=== PATIENT | male | born 1945 | race Caucasian/White ===

== ENCOUNTER 2016-06-29 15:30 | Inpatient (IN) | payer MEDICARE, OTHER ==
[~2016-06-29] VITALS: Ht 177.8 cm; Wt 124.1 kg
--- NOTE | ~2016-06-29 | ECHO ---
Transthoracic Echocardiography Report (TTE) Demographics Patient Name PRIETO, Date of Study 06/29/2016 ESTELLA Patient Number [id number] Visit Number [id number] Date of 1945 Room Number G6204 Accession Number [id number] Gender Male Age 71 year(s) Referring Gary Amador Work Station Support Specialist Nargis Diehl RVT Physician Physician Interpreting Angélica Furniture Removalist Physician Jess AYERS Supervising Ordering Physician Gary Amador MD/MLP Nurse Stress Casino Games Dealer Conclusions Contractility Score Summary Normal Left Ventricular contractility was noted. Summary Technically difficult exam. Normal LV/RV size and systolic function. The estimated left ventricular ejection fraction is 60%. Mild concentric left ventricular hypertrophy. Diastolic function indeterminate due to patient's arrhythmia. Dilated IVC with poor inspiratory collapse consistent with elevated RA pressure. No significant valvular abnormalities. There is mild pulmonary hypertension. The pulmonary pressure (RVSP) is 47 mmHg. Trivial pericardial effusion. Procedure Type of Study TTE procedure:2D Echocardiogram. Procedure Date Date: 06/29/2016 Start: 06:02 PM Study Location: Inpatient Portable Technical Quality: Limited visualization due to patient immobility. Indications:Tachycardia. Appropriate Use Criteria: 9 Patient Status: STAT HR: 105 bpm BP: 92/57 mmHg M-Mode/2D Measurements LV Diastolic Dimension: 4 cm LV Systolic Dimension: 2.21 cm LV Septum Diastolic: 2.04 cm LV PW Diastolic: 1.59 cm AO Root Dimension: 2.3 cm Cardiac Output: 7.12 l/min AV Cusp Separation: 1.9 cm RV Diastolic Dimension: 2.66 cm LA Dimension: 3.26 cm LVOT: 2 cm RV Base: 2.97 cm LVOT VTI: 21.6 cm RV Mid: 3.29 cm LV Stroke volume: 67.82 ml RV Length: 6.82 cm TAPSE: 1.97 cm TDI-S': 14 cm/s Doppler Measurements AV Peak Velocity: 1.95 m/s MV Peak E-Wave: 0.83 m/s AV Peak Gradient: 15.21 mmHg MV Peak A-Wave: 0.94 m/s AV Mean Gradient: 7 mmHg MV E/A Ratio: 0.88 LVOT Peak Velocity: 1.21 m/s MV P1/2t: 75 msec TR Gradient:27.46 mmHg PV Peak Velocity: 0.94 m/s Estimated RAP:20 mmHg PV Peak Gradient: 3.53 mmHg Estimated RVSP: 47 mmHg Estimated PASP: 47.46 mmHg E' Lateral Velocity: 0.1 m/s A' Lateral Velocity: 0.12 m/s Findings Left Ventricle Mild concentric left ventricular hypertrophy. Diastolic function indeterminate due to patient's arrhythmia. Right Ventricle Normal right ventricle structure and function. Left Atrium Normal left atrial size. Right Atrium Dilated IVC with poor inspiratory collapse consistent with elevated RA pressure. Mitral Valve Mild mitral annular calcification. Aortic Valve The aortic valve was not well imaged. Tricuspid Valve Trivial tricuspid regurgitation by color Doppler. There is mild pulmonary hypertension. The pulmonary pressure (RVSP) is 47 mmHg. Pulmonic Valve Pulmonic valve is not well seen. Pericardial Effusion Trivial pericardial effusion. Miscellaneous Visualized portions of the aortic root and ascending aorta appear normal in size. Pleural Effusion No evidence of pleural effusion. Contractility Score LV regional wall motion:(0-Non visualized 1-Normal 2-Hypokinesis 3-Akinesis 4-Dyskinesis 5-Aneurysm) Signature dtt: JESS BAIG dtd: 06/29/16 2363 Physician Self Edit
--- NOTE | ~2016-06-29 | CON ---
PATIENT'S NAME: PRIETO [facility] [place] AGE: 71 Y [address] ROOM: [place] [address] LOCATION: GICU ADMIT DATE: 06/29/2016 Consultation DISCHARGE DATE: FAMILY PHYSICIAN: KHLOE BLOOM MD ATTENDING PHYSICIAN: Marjorie VEGA REFERRING PHYSICIAN: aGry Amador MD REASON FOR CONSULTATION: Elevated cardiac enzymes. HISTORY OF PRESENT ILLNESS: This is a 71-year-old gentleman, who was originally seen in the [facility] when family found him unresponsive. He was found to be in a circulatory shock, hypotensive, and had acute encephalopathy, and was unresponsive. In addition, he was found to have acute pancreatitis. Prior to the incident, he had been complaining of a cough about 5 days before and was treated for this as an outpatient. Per family, there has been no report of exertional chest pain. In fact, he is a very active 71-year-old. He does have problems with shortness of breath and dyspnea on exertion. He had never complained that he had palpitations. PAST MEDICAL HISTORY: 1. Diabetes mellitus type 2. 2. Essential hypertension. 3. Acute pancreatitis. 4. Dyspnea on exertion. PAST SURGICAL HISTORY: From old records, hernia repair. FAMILY HISTORY: Obtained from old records. Father had an [facility] and congestive heart failure. Mother had diabetes mellitus. SOCIAL HISTORY: He is a never smoker. He does not use alcohol. He does have attentive children. He is . REVIEW OF SYSTEMS: Unobtainable. PHYSICAL EXAMINATION: VITAL SIGNS: Currently, he is on 2 pressors for blood pressure support. Pressures have ranged in the 70s to 90s over 60s with a heart rate of 110 to 120. He is in a regular sinus rhythm. Initially, when he was admitted, there was concern about ST-elevation. It was reviewed by Cardiology, and it was PATIENT'S NAME: PRIETO [facility] [place] AGE: 71 Y [address] ROOM: [place] [address] LOCATION: GICU ADMIT DATE: 06/29/2016 Consultation DISCHARGE DATE: FAMILY PHYSICIAN: KHLOE BLOOM MD ATTENDING PHYSICIAN: Marjorie VEGA decided that he did not have ST elevation. He is sedated on a ventilator. SKIN: Warm, dry, and pink. HEENT: Pupils are equal. NECK: Soft and supple. There is no lymphadenopathy. CV: Regular with a normal S1 and S2. ABDOMEN: Soft. Bowel sounds are present. EXTREMITIES: Cool. LABORATORY DATA: His troponin I was 0.122 to 0.271; CPK 1402 to 2164; CK-MB was 23.7, now down TO 8.8; ProBNP 5510 to 5813. Amylase was 102, now 1203; lipase 13,359, down to 7325. Hemoglobin A1c is 10.4. He did have a positive UA. ASSESSMENT AND PLAN: 1. Elevated cardiac enzymes. His CK-MB is trending down at this time. He did have an echocardiogram showing an EF of 60%. We will discuss further recommendations with Dr. Collazo. 2. Acute pancreatitis, which is being treated by the hospitalist. 3. Diabetes mellitus. We will continue with current medications. Assessment and plan, history of present illness, and physical exam are per Dr. Miguel Collazo. We would like to thank Dr. Vega for allowing us to participate in the patient's care. LOVE ARNDT APRN FOR MIGUEL COLLAZO MD TGP/modl /[id number] CC: Khloe Bloom MD d: 07/01/16 2058 t: 08/03/16 1134, CONSULTATION REPORT
--- NOTE | ~2016-06-29 | ECHO ---
Transthoracic Echocardiography Report (TTE) Demographics Patient Name PRIETO, Date of Study 07/10/2016 ESTELLA Patient Number [id number] Visit Number [id number] Date of 1945 Room Number G6204 Accession Number [id number] Gender Male Age 71 year(s) Referring Lc Gilman Warehouse Team Member Bang Raphael RVT, Physician Lilliana Cabrera MD [facility] Physician Interpreting Cindy Rivera MD Train Caller Physician Supervising Ordering Physician Lc Gilman MD/MLP Nurse Stress Senior Account Clerk Conclusions Summary The estimated left ventricular ejection fraction is 50-55%. Right ventricle appears normal in size with normal function. RVSP estimated at 23 mmHg. Procedure Type of Study TTE procedure:Echo Limited w/o Contrast. Procedure Date Date: 07/10/2016 Start: 02:27 PM Study Location: Inpatient Portable Technical Quality: Fair due to body habitus. Indications:Pulmonary embolus. Appropriate Use Criteria: 8 Patient Status: Routine Rhythm: Sinus tachycardia HR: 110 bpm BP: 132/102 mmHg Allergies - No known allergies. Doppler Measurements TR Velocity:2.12 m/s TR Gradient:17.98 mmHg Estimated RAP:5 mmHg Estimated PASP: 22.98 mmHg Estimated RVSP: 23 mmHg Findings Left Ventricle Normal left ventricle size and function. Right Ventricle Mild to moderately dilated right ventricle. Pericardial Effusion No evidence of pericardial effusion. Signature dtt: Miguel White (cardio) dtd: 07/10/16 1427 Physician Self Edit
--- NOTE | ~2016-06-29 | CON ---
PATIENT'S NAME: ESTELLA [facility] AGE: 71 Y [address] ROOM: G[address] [place], [place] [address] LOCATION: GICU ADMIT DATE: 06/29/2016 Consultation DISCHARGE DATE: FAMILY PHYSICIAN: DEYSI BLOOM MD ATTENDING PHYSICIAN: Marjorie VEGA DATE OF CONSULTATION: 07/07/2016 CONSULTATION NOTE REASON FOR CONSULTATION: Hypernatremia. REFERRING PHYSICIAN: Dr. Marjorie Vega. HISTORY OF PRESENT ILLNESS: A 71-year-old male with history of hypertension and type 2 diabetes, who was initially transferred to our hospital from [place], [place] after development of acute respiratory failure, hypothermia with possible septic shock secondary to septic arthritis and DKA. He was recovering well and being managed in the ICU at [facility], got extubated a couple of days ago, however, still having significant respiratory distress and was on BiPAP. The critical care team was trying to diuresing persistently for the last few days to minimize oxygen requirement, currently on no nasal cannula. The patient got about 6 L of fluid out yesterday, however, serum sodium which was 140, a few days ago, now slowly went up to 153 to 154 range. Nephrology consultation had been called for hypernatremia evaluation. During my evaluation, although the patient responds to the name call but still appears to be slightly confused possibly secondary to underlying dementia, although we are not sure about the baseline mental status of the patient, before everything happened. He denied any chest pain, or shortness of breath at this point, and as mentioned above, he is currently saturating at 93% to 94% on nasal cannula. No significant dependent edema. However, bilaterally at bases the breath sounds are diminished. He denies any chest pain, any nausea, vomiting, or diarrhea, however, the patient has a Dobbhoff to his nose. After extubation his gag reflex is still not completely back, and there is a chance of aspiration while swallowing. PT and OT at the bedside, working with the patient. PAST MEDICAL HISTORY: 1. Hypertension. 2. Type 2 diabetes. PAST SURGICAL HISTORY: Hernia repair in 2006. MEDICATIONS: At home are: 1. Amoxicillin. 2. Aspirin. 3. Enalapril. 4. Glipizide. 5. Glyxambi. 6. Metformin. ALLERGIES: NO KNOWN DRUG ALLERGIES. FAMILY HISTORY: The patient although alert but could not give much history, probably demented. We cannot get more history about his family. PATIENT'S NAME: ESTELLA [facility] AGE: 71 Y [address] ROOM: [address] [place] [id number] LOCATION: [facility] ADMIT DATE: 06/29/2016 Consultation DISCHARGE DATE: FAMILY PHYSICIAN: DEYSI BLOOM MD ATTENDING PHYSICIAN: Marjorie VEGA SOCIAL HISTORY: Again unknown because of the patient's mental status. REVIEW OF SYSTEMS: GENERAL: No fever. No chills or rigor. HEENT: No sore throat. No sinus congestion. CVS: No chest pain. No exertional shortness of breath. No leg swelling. RESPIRATORY: No shortness of breath. No cough. No wheezing. GENITOURINARY: No pain with urination. No increased frequency. No nocturia. GASTROINTESTINAL: No abdominal pain. No abdominal distention. No nausea or vomiting. NEUROLOGIC: No weakness. No seizures. SKIN: No rash. No itching. ALLERGIES: No seasonal allergy. No hayfever. ENDOCRINE: No heat intolerance. No cold intolerance. PSYCHIATRIC: No sadness. No crying spells. No history of panic attack. PHYSICAL EXAMINATION: VITAL SIGNS: Blood pressure 100 to 130s over 40s to 60s. Pulse rate 80 to 100, respiratory rate 16, temperature 99.0, and saturating at 94% to 95% on 3 to 4 L of oxygen via nasal cannula. GENERAL: Not in apparent distress. HEAD: Moist mucous membranes. Bilateral PERRLA, EOMI. NECK: No JVD, thyromegaly or lymphadenopathy. CVS: S1 and S2 normal, regular rate and rhythm. No murmur, rub, gallop. CHEST: Decreased air entry at the bilateral bases. No wheezes or rales. ABDOMEN: Soft, nontender, nondistended. Bowel sounds present. EXTREMITIES: No cyanosis, clubbing, jaundice. 1+ dependent edema. MUSCULOSKELETAL: No limitation of range of motion. SKIN: No pallor, cyanosis, icterus. FISHER SPONGE HOOKING: Alert and oriented x3. No gross findings. LABORATORY STUDIES: Blood sugar between 170 to 240. CBC; WBC 22,000, hemoglobin 13.1, and platelets 353,000. Chemistry; serum sodium 153, potassium 4.0, chloride 117, bicarbonate 24, BUN 26, creatinine 1.4, glucose 216, calcium 8.7, phosphorus 2.1, and magnesium 2. Anion gap 16. UA; specific gravity of 1.015, pH 5, 2+ turbidity, positive protein, 3+ glucose, positive ketones, rare wbc's, full field rbc, and 1+ amorphous material. ASSESSMENT AND PLAN: 1. Hypernatremia, possibly hypertonic although serum osmolality is not available. No urine studies as well, but I do believe the possible etiology is free water loss from osmotic diuresis with diabetic ketoacidosis and increased blood sugar concentration as well as occasional tube feed, but the patient was off tube feed for the last 4 days, but we are also giving diuretic which may have contributed to some increased free water loss. We will shoot for 7 to 8 mEq of sodium correction for now with that the free water loss will be about 2.5 L along with some ongoing loss. PATIENT'S NAME: ESTELLA [facility] AGE: 71 Y [address] ROOM: [place] [address] LOCATION: [facility] ADMIT DATE: 06/29/2016 Consultation DISCHARGE DATE: FAMILY PHYSICIAN: DEYSI BLOOM MD ATTENDING PHYSICIAN: Marjorie VEGA It is very difficult to calculate ongoing loss without the urine lytes but with the average urine output of 6 L for this patient. At this current situation, we will take at least 3 L as free water loss in the urine so we will give about 250 mL of free water flush at the Dobbhoff through the NGT and we will give about 175 mL of D5 water per hour. The patient's insulin regimen should be changed to control the blood sugar more appropriately. Please send UA, urine lytes including sodium, potassium, and creatinine osmolality. Please check serum sodium q1-2 hours hourly and send serum osmolality right now. We will closely monitor for now. 2. Acute kidney injury versus chronic kidney disease. Baseline creatinine is unknown. Creatinine was 3 at the time of admission, possibly secondary to acute tubular necrosis, septic versus toxic. Creatinine improved to 1.0, but now went back to 1.4 and it is not coming back, possible acute tubular necrosis versus acute interstitial nephritis with Zosyn, we will switch the patient from Zosyn to meropenem if possible and cleared by primary team. 3. Acute respiratory failure possibly volume overloaded. The patient was getting aggressively diuresed over the last few days. Currently, on nasal cannula and respiratory status is much better. 4. Septic shock, improved possibly secondary to septic arthritis of the right shoulder. Primary team is managing, currently on Zosyn as mentioned above which might have caused some acute interstitial nephritis. We will request to switch to meropenem if possible. 5. Hypertension, was on multiple antihypertensive medications at home. Currently all medications on hold in the context of septic shock. Adjust medication as necessary. 6. Diabetes. Blood sugar is fragile control. We are giving D5 to supplement some of the free water loss. The patient's blood sugar needs to be controlled more strictly with insulin either through subcutaneous route or as an IV insulin regimen. We will defer that to the primary team. However, if the blood sugar remains uncontrolled, patient will get more aggressive cosmetic diuresis with uncontrolled blood sugar and hypernatremia will be difficult to control. Thank you for allowing me to participate in this patient's care. We will closely monitor the patient's progress along with you. MARYSOL TA MD /modl /[id number] d: 07/07/162030 t: 07/14/16 1423, CONSULTATION REPORT
--- NOTE | ~2016-06-29 | ECHO ---
Transthoracic Echocardiography Report (TTE) Demographics Patient Name PRIETO, Date of Study 07/01/2016 ESTELLA Patient Number [id number] Visit Number [id number] Date of 1945 Room Number G6204 Accession Number [id number] Gender Male Age 71 year(s) Referring Lc Gilman Camp Recreation Specialist Bridgette Monteiro Physician [facility] Physician Interpreting Cindy Rivera MD Power Tong Operator Physician Supervising Ordering Physician /MARIELENA Nurse Stress Clinical Analyst Conclusions Summary Technically difficult exam. The estimated left ventricular ejection fraction is 40-45%. Mild concentric left ventricular hypertrophy. Diastolic function indeterminate due to patient's arrhythmia. Moderate to severely reduced right ventricular function. Mild tricuspid regurgitation by color Doppler. No evidence of pericardial effusion. Procedure Type of Study TTE procedure:2D Echocardiogram. Procedure Date Date: 07/01/2016 Start: 09:40 AM Study Location: Inpatient Portable Indications:Elevated Troponin. Appropriate Use Criteria: 9 Patient Status: STAT HR: 135 bpm BP: 104/85 mmHg M-Mode/2D Measurements LV Diastolic Dimension: 4.87 cm LV Systolic Dimension: 3.8 cm LV Septum Diastolic: 1.09 cm LV PW Diastolic: 1.09 cm AO Root Dimension: 2.2 cm Cardiac Output: 4.13 l/min AV Cusp Separation: 1.3 cm RV Diastolic Dimension: 3.26 cm LVOT: 2 cm LVOT VTI: 9.75 cm LV Stroke volume: 30.62 ml Doppler Measurements AV Peak Velocity: 1.19 m/s MV Peak E-Wave: 0.4 m/s AV Peak Gradient: 5.66 mmHg AV Mean Gradient: 3 mmHg LVOT Peak Velocity: 0.87 m/s PV Peak Velocity: 0.69 m/s TR Velocity:2.32 m/s PV Peak Gradient: 1.93 mmHg TR Gradient:21.53 mmHg Estimated PASP: 31.53 mmHg Estimated RAP:10 mmHg A' Septal Velocity: 0.03 m/s Estimated RVSP: 32 mmHg A' Lateral Velocity: 0.1 m/s E' Septal Velocity: 0.03 m/s E' Lateral Velocity: 0.03 m/s Findings Left Ventricle Mild concentric left ventricular hypertrophy. Diastolic function indeterminate due to patient's arrhythmia. Anterior wall shows mild to moderate hypokinesis Right Ventricle Moderate to severely reduced right ventricular function. Left Atrium Normal left atrial size. Mitral Valve Mild mitral annular calcification. Aortic Valve Normal aortic valve structure and function. Tricuspid Valve Mild tricuspid regurgitation by color Doppler. Pulmonic Valve Normal pulmonic valve structure and function. Pericardial Effusion No evidence of pericardial effusion. Pleural Effusion No evidence of pleural effusion. Contractility Score LV regional wall motion:(0-Non visualized 1-Normal 2-Hypokinesis 3-Akinesis 4-Dyskinesis 5-Aneurysm) Signature dtt: Miguel White (cardio) dtd: 07/01/16 0940 Physician Self Edit
--- NOTE | ~2016-06-29 | OR ---
PATIENT'S NAME: PRIETO [facility] AGE: 71 Y [address] ROOM: [address] [address] LOCATION: GICU ADMIT DATE: 06/29/2016 OR/Procedure Report DISCHARGE DATE: FAMILY PHYSICIAN: PHYSICIAN, UNKNOWN ATTENDING PHYSICIAN: Marjorie TORREZ SURGEON: Federica Platt MD DATE OF PROCEDURE: 06/29/2016 PROCEDURE NAME: Left internal jugular central venous catheter with ultrasound guidance. INDICATION: Shock and profound metabolic acidosis with a pH of 6.83. CONSENT: Consent could not be readily obtained from the POA. I explained the procedure to the patient's [id number] who was present in the room. She gave verbal agreement to the procedure. Overall, the procedure had to be done because of emergent situation. PROCEDURE SUMMARY: A time-out was performed. The patient's left neck region was prepped and draped in sterile fashion using chlorhexidine scrub. Anesthesia was achieved with 1% lidocaine solution. The left internal jugular vein was accessed under ultrasound guidance using a finder needle. Ultrasound images were permanently documented. Venous blood was withdrawn and a guidewire was advanced through the needle and the needle was withdrawn. A small incision was made with a 10 blade scalpel. Two sequential dilators were advanced over the guidewire until appropriate dilation was obtained. The second dilator was removed and a 12-Chinese central venous triple-lumen catheter was advanced over the guidewire and secured into place with 2 sutures at 20 cm. The guidewire was removed. At the time of procedure completion, all ports aspirated and flushed properly. Postprocedure x-ray is pending at the time of this dictation. COMPLICATIONS: None. ESTIMATED BLOOD LOSS: Less than 10 mL. FEDERICA PLATT MD RFN/modl PATIENT'S NAME: PRIETO [facility] AGE: 71 Y [address] ROOM: [address] [address] LOCATION: GICU ADMIT DATE: 06/29/2016 OR/Procedure Report DISCHARGE DATE: FAMILY PHYSICIAN: , SETH ATTENDING PHYSICIAN: Marjorie TORREZ /[id number] d: 06/29/16 2310 t: 06/30/16 0900, OPERATIVE SUMMARY
--- NOTE | ~2016-06-29 | CON ---
PATIENT'S NAME: PRIETO [facility] AGE: 71 Y [address] ROOM: [place] [address] LOCATION: GPCU ADMIT DATE: 06/29/2016 Consultation DISCHARGE DATE: FAMILY PHYSICIAN: DEYSI BLOOM MD ATTENDING PHYSICIAN: Marjorie TORREZ DATE OF CONSULTATION: 07/26/2016 HISTORY OF PRESENT ILLNESS: The patient is a 71-year-old male, who was admitted approximately a month ago secondary to urosepsis. The patient spent several weeks in Intensive Care Unit. Staff reports he continues to have recurrent cystitis with Staph infections. The patient reports some voiding difficulties prior to his hospitalization, but denies a history of BPH. The patient has never taken medications for his condition. He denies prior history of bladder or kidney infections. In view of his recurrent infections and history of difficulty voiding, I recommend checking bladder scan post void residual for initial evaluation. PAST MEDICAL HISTORY: Significant for diabetes, hypertension, and also history of GI bleeding. MEDICATIONS: See detailed history and physical. SOCIAL HISTORY: No history of alcohol abuse. PHYSICAL EXAMINATION: GENERAL: An elderly male, with difficulty hearing. EYES: Extraocular motion intact. LUNGS: Clear bilaterally. CARDIAC: Regular rhythm and rate. ABDOMEN: Obese, soft, and nontender. Normoactive bowel sounds throughout. NEURO: Grossly intact. SKIN: Within normal limits. RECTAL: Slightly decreased tone. Prostate is smooth, approximately 30 grams in size. IMPRESSION: Recurrent cystitis. PLAN: We will check bladder scan post void residual for initial evaluation. PATIENT'S NAME: PRIETO [facility] AGE: 71 Y [address] ROOM: [place] [address] LOCATION: GPCU ADMIT DATE: 06/29/2016 Consultation DISCHARGE DATE: FAMILY PHYSICIAN: DEYSI BLOOM MD ATTENDING PHYSICIAN: Marjorie TORREZ MD SUZI MICHELLE/zuleika /[id number] d: 07/27/16 0112 t: 08/15/16 1443, CONSULTATION REPORT
--- NOTE | ~2016-06-29 | HP ---
PATIENT'S NAME: PRIETO [facility] AGE: 71 Y [address] ROOM: [place] [address] LOCATION: GICU ADMIT DATE: 06/29/2016 History & Physical DISCHARGE DATE: FAMILY PHYSICIAN: PHYSICIAN, UNKNOWN ATTENDING PHYSICIAN: Marjorie TORREZ DATE OF SERVICE: CHIEF COMPLAINT: Unresponsive. HISTORY OF PRESENT ILLNESS: The patient is a 71-year-old gentleman with past medical history of diabetes mellitus type 2, who presents here from [place], [place] with circulatory shock, acute respiratory failure, and acute encephalopathy. According to a family member, the patient was started on amoxicillin 5 days ago due to cough. Last seen normal was on Sunday. However, the patient called in today to his primary care doctor and did not sound well. Family members were called to take the patient. The patient was found at home unresponsive. The patient was brought in to [facility] and was found to have circulatory shock with hypotension, acute encephalopathy, and also acute hypoxic respiratory failure. The patient was intubated, was started on IV fluids, was given vancomycin and Zosyn for broad-spectrum antibiotic, and was brought here to our hospital for further evaluation. Initially, the patient was thought that he had ST elevation. V3 and V6 were thought to be elevated, however, was reviewed by our Cardiology and repeat EKG did not show any signs of ST elevation. The patient lives alone. Does not drink and does not smoke. En route, the patient was found to have coffee-ground emesis through his OG tube. Lab that was given to our hospital from [facility] was significant for a bicarb of 4, potassium of 6.8, blood glucose of 619, and white blood cell count of 36.3. The patient takes metformin for his diabetes and also linagliptin plus empagliflozin. MEDICAL HISTORY: Diabetes mellitus and hypertension. FAMILY HISTORY: Noncontributory. SOCIAL HISTORY: The patient lives by himself. Does not drink. Does not smoke. MEDICATION: PATIENT'S NAME: PRIETO ESTELLA [facility] AGE: 71 Y [address] ROOM: [place] [address] LOCATION: GICU ADMIT DATE: 06/29/2016 History & Physical DISCHARGE DATE: FAMILY PHYSICIAN: PHYSICIAN, UNKNOWN ATTENDING PHYSICIAN: Marjorie TORREZ Please see med reconciliation. REVIEW OF SYSTEMS: Unable to obtain review of system due to the patient's poor mentation. PHYSICAL EXAMINATION: VITAL SIGNS: Temperature 99 degree Fahrenheit, blood pressure 86/55, respiratory rate of 126, weight of 128 kg, saturating 95% on FiO2 of 60. GENERAL APPEARANCE: The patient is intubated. HEAD: Normocephalic, atraumatic. NECK: Left-sided central venous catheter present. EYES: Pupils equal, round, and reactive to light. Sclerae nonicterus. NOSE: No nasal discharge. THROAT: OG tube present draining mild coffee-ground emesis. CHEST: Clear to auscultation. Mechanical breath sound present. HEART: Tachycardic. No murmurs, rubs, or gallops. ABDOMEN: Mild epigastric tenderness. Bowel sounds present. SKIN: Warm to touch. EXTREMITIES: Lower extremity, no edema. MUSCULOSKELETAL: No obvious joint effusion noted. POURER CRANE LADLE: The patient is alert and oriented x0, intubated, sedated. CURRENT LABORATORIES: The patient's initial ABG was pH of 6.83, pCO2 of 57 and a bicarb of 9.3. Last VBG done shows pH of 7.29, pCO2 of 38, and bicarb of 18.3. Troponin 0.122. CBC: White blood cell count of 23.1, hemoglobin of 14.9, and a platelet of 421. Renal function panel shows BUN of 70, creatinine of 2.9, sodium of 138. Hemoglobin A1c of 10.4. INR of 1.13. Lipase of 13,359. Procalcitonin level of 1.43. IMAGING DATA: EKG shows sinus tachycardia, no ST elevation noted. CT abdomen, prelim report shows pancreatitis. CT chest shows left IJ catheter and brachiocephalic vein. No evidence of complication. Dependent bilateral lung consolidation and volume loss and possible pancreatitis. ASSESSMENT AND PLAN: 1. The patient is a 71-year-old gentleman with past medical history of diabetes mellitus, who presents here with circulatory shock, acute metabolic encephalopathy, pancreatitis, metabolic and respiratory acidosis and diabetic ketoacidosis. Etiology most likely secondary to diabetic ketoacidosis caused by possible pancreatitis and also use of SGLT2 diabetic medication. In this case, which he uses empagliflozin plus linagliptin with the generic name is Glyxambi, known to cause diabetic ketoacidosis in type 2 diabetic patients. PATIENT'S NAME: ESTELLA MOREAU [facility] AGE: 71 Y [address] ROOM: [id number] [place], [place] [address] LOCATION: [facility] ADMIT DATE: 06/29/2016 History & Physical DISCHARGE DATE: FAMILY PHYSICIAN: PHYSICIAN, UNKNOWN ATTENDING PHYSICIAN: Marjorie TORREZ 2. Acute respiratory failure, etiology most likely secondary to diabetic ketoacidosis. The patient is sedated and intubated. Serial ABG and VBG showing improvement. We will treat underlying etiology. 3. Acute metabolic encephalopathy. Etiology secondary to severe acidosis. Currently not known for how long the patient was unresponsive. Initial CT at [facility] was unremarkable. The patient compared to when he was admitted, he is showing some sort of improvement. He is opening eyes and tracking. However, the patient still is noted to have right preference gaze. We will acquire CT head in the morning to further evaluate possible stroke. We will treat underlying etiology. Hopefully, the patient will improve his encephalopathy when his underlying etiology is fixed. 4. Circulatory shock. Etiology septic shock versus hypovolemia due to diabetic ketoacidosis and pancreatitis. The patient was noted to have elevated prolactin level and white blood cells. CT abdomen and CT chest unrevealing for infectious process. However, we will acquire blood culture. Blood culture is pending. On broad-spectrum antibiotics, on Zyvox and cefepime. We will follow up blood culture closely. Also, we will treat the underlying severe metabolic acidosis, that can also present factor in this case. We will also give the patient IV fluid. We will follow the patient clinically. 5. Diabetic acidosis. Etiology most likely secondary to SGLT2 medication use and pancreatitis or possible sepsis. We will continue with the DKA protocol. He is currently on insulin drip and D5 half normal saline. We will have serial renal function panel. To supplement phosphorus and potassium as needed. 6. Severe metabolic acidosis and severe respiratory acidosis. Etiology most likely secondary to diabetic ketoacidosis and worsening of mental status. The patient is currently intubated and is being treated with diabetic ketoacidosis protocol for his metabolic acidosis. Serial VBGs are showing improvement. We will treat current treatment plan. 7. Possible gastrointestinal bleed. The patient's OG tube shows some coffee- grounds emesis. However, hemoglobin has been stable during stay, currently on Protonix drip and octreotide. To consult GI in the morning. We will have serial H and Hs. 8. Severe pancreatitis. The patient is currently on IV fluids. We will continue treating the patient with aggressive IV fluid treatment. GI consult in the morning. 9. Acute kidney injury secondary to circulatory shock and possible sepsis. Currently on IV fluids. We will have serial renal function panel. 10. Elevated troponin. Etiology most likely non-ST elevation myocardial infarction type 2. Initial EKG does not show any concerning finding of ST elevation or depression. This is most likely secondary to demand. We will follow the patient closely. I have personally reviewed the patient's medical record including but not PATIENT'S NAME: ESTELLA MOREAU [facility] AGE: 71 Y [address] ROOM: [place] [address] LOCATION: [facility] ADMIT DATE: 06/29/2016 History & Physical DISCHARGE DATE: FAMILY PHYSICIAN: PHYSICIAN, UNKNOWN ATTENDING PHYSICIAN: Marjorie TORREZ limited to blood work and radiology report. Total time spent with the patient is greater than 90 minutes. More than 50% of the time is spent in the direct patient care and patient consultation. Case was reviewed with the patient's family and nursing staff. All questions were answered to the patient's satisfaction. The case was also reviewed with Cardiology, with sales and service specialist. LORE BRIDGES MD AD/modl /[id number] D: T: [id number] HISTORY & PHYSICAL
--- NOTE | ~2016-06-29 | ENPV ---
Vascular Lower Extremities DVT Study Procedure Demographics Patient Name ESTELLA MOREAU Date of Study 07/10/2016 Patient Number [id number] Gender Male Date of 1945 Age 71 Visit Number [id number] Height 70 Accession Number [id number] Weight 288.01 Referring Lc Gilman Interpreting Bertin Babcock MD Physician Lilliana Cabrera MD Physician Gary Amador Physician Ordering Physician Lc Gilman Marketing Communication Manager Yarn Polishing Machine Operator Bang Raphael T, [facility] Conclusions Summary Normal venous duplex examination of the legs bilaterally with normal venous Doppler signals noted throughout. No evidence of thrombophlebitis is noted bilaterally in the deep and superficial veins of the legs. Small calf thrombi cannot be excluded. Procedure Type of Study: Veins:Lower Extremities DVT Study, Venous Duplex Lower Extremity Bilateral. Indications for Study:Pulmonary embolism. Appropriate Use Criteria:4 Allergies - No known allergies. Patient Status:Routine. Study Location:Inpatient Portable. Technical Quality:Adequate visualization. Risk Factors - The patient's risk factor(s) include: insulin-treated diabetes mellitus, dyslipidemia and arterial hypertension. - The patient's last creatinine was 2 mg/dl. Velocities are measured in cm/s ; Diameters are measured in cm Right Lower Extremities DVT Study Measurements Right 2D and Doppler Measurements + + + + +------+------+ + !Location !Visualized!Compressibility!Thrombosis!Signal!Reflux!Reflux ! ! ! ! ! ! ! !(sec) ! + + + + +------+------+ + !GSV Thigh !Yes !Yes !None !Phasic! ! ! + + + + +------+------+ + !Common !Yes !Yes !None !Phasic! ! ! !Femoral ! ! ! ! ! ! ! + + + + +------+------+ + !Prox !Yes !Yes !None !Phasic! ! ! !Femoral ! ! ! ! ! ! ! + + + + +------+------+ + !Mid Femoral!Yes !Yes !None !Phasic! ! ! + + + + +------+------+ + !Dist !Yes !Yes !None !Phasic! ! ! !Femoral ! ! ! ! ! ! ! + + + + +------+------+ + !Popliteal !Yes !Yes !None !Phasic! ! ! + + + + +------+------+ + !PTV !Yes !Yes !None !Phasic! ! ! + + + + +------+------+ + !Peroneal !Yes !Yes !None !Phasic! ! ! + + + + +------+------+ + Left Lower Extremities DVT Study Measurements Left 2D and Doppler Measurements + + + + +------+------+ + !Location !Visualized!Compressibility!Thrombosis!Signal!Reflux!Reflux ! ! ! ! ! ! ! !(sec) ! + + + + +------+------+ + !GSV Thigh !Yes !Yes !None !Phasic! ! ! + + + + +------+------+ + !Common !Yes !Yes !None !Phasic! ! ! !Femoral ! ! ! ! ! ! ! + + + + +------+------+ + !Prox !Yes !Yes !None !Phasic! ! ! !Femoral ! ! ! ! ! ! ! + + + + +------+------+ + !Mid Femoral!Yes !Yes !None !Phasic! ! ! + + + + +------+------+ + !Dist !Yes !Yes !None !Phasic! ! ! !Femoral ! ! ! ! ! ! ! + + + + +------+------+ + !Popliteal !Yes !Yes !None !Phasic! ! ! + + + + +------+------+ + !PTV !Yes !Yes !None !Phasic! ! ! + + + + +------+------+ + !Peroneal !Yes !Yes !None !Phasic! ! ! + + + + +------+------+ + Signature dtt: FAHAD FRANCISCO: 07/10/16 1440 Physician Self Edit
--- NOTE | ~2016-06-29 | OR ---
PATIENT'S NAME: ESTELLA MOREAU [facility] AGE: 71 Y [address] ROOM: [place] [address] LOCATION: GICU ADMIT DATE: 06/29/2016 OR/Procedure Report DISCHARGE DATE: FAMILY PHYSICIAN: DEYSI BLOOM MD ATTENDING PHYSICIAN: Marjorie TORREZ SURGEON: Matt Armando MD CASCADE OPERATOR: DATE OF PROCEDURE: 07/07/2016 PREOPERATIVE DIAGNOSIS: Right shoulder pain, possible shoulder sepsis. POSTOPERATIVE DIAGNOSIS: No septic shoulder. PROCEDURE: Attempted aspiration, right glenohumeral joint. INDICATIONS: This is a 71-year-old male with pancreatitis and an episode of sepsis who is in the intensive care unit. He has diabetes mellitus and pancreatitis. DESCRIPTION OF PROCEDURE: The patient was seen in his room. He sat up and the posterior aspect of his right shoulder was prepped with Betadine. An attempt at aspiration of the shoulder was made with an 18-gauge inch and half needle into the posterior glenohumeral portal. No fluid was encountered. The needle trajectory was adjusted and it was felt to contact the humeral head. It was felt, there was no effusion in the shoulder and therefore no septic joint. MATT ARMANDO MD CEW/modl /[id number] d: 07/08/16 0206 t: 07/12/16 1010, OPERATIVE SUMMARY
--- NOTE | ~2016-06-29 | CATH ---
Cardiac Diagnostic Report Demographics Patient Name PRIETO Gender Male ESTELLA Date of 1945 Age 71 year(s) Patient Number [id number] Date of Study 07/01/2016 Visit Number [id number] Room Number G6[address] [place] [id number] Ht 177.8 cm Wt 130.64 kg Referring Tijerina Khloe Cabrera Primary Physician Physician MD Performing Cindy Rivera MD Secondary Physician Physician Diagnostic Cindy Rivera MD Assisting Physician Physician Interventional Physician Quick Mixer Operator Physician Findings and Conclusions Diagnostic Findings and Conclusion Non-obstructive CAD. LVEDP 20 Diagnostic Recommendations IABP placed Procedure Description The patient was brought to the diagnostic cardiac catheterization-EP laboratory in the fasting, non-sedated state. Informed consent was obtained in the written and verbal form after the risks and benefits were explained. The patient had no further questions and agreed to proceed. The planned puncture-incision site(s) were shaved and prepped with ChloraPrep and draped in the usual sterile manner. Conscious sedation, supplemental oxygen, and pain control medications were delivered by a registered nurse under physician guidance. Surface ECG rhythm, blood pressure measurement, and pulse oximetry were monitored throughout the procedure. Arterial access. The access site was infiltrated with lidocaine. The vessel was entered with the Seldinger technique. A sheath was advanced into the vessel and used for catheter placement. Selective left coronary angiography. A catheter was advanced into the left coronary vessel ostium under Fluoroscopic guidance. Contrast was injected by hand. Images were obtained in multiple projections. Selective right coronary angiography. A catheter was advanced into the right coronary vessel ostium under fluoroscopic guidance. Contrast was injected by hand. Images were obtained in multiple projections. Left heart catheterization. A catheter was advanced across the aortic valve to the left ventricle under fluoroscopic guidance. Resting hemodynamics were obtained. IABP placement. The balloon catheter was advanced into the aorta and the tip was fluoroscopically positioned just distal to the left subclavian artery origin. The floppy guidewire was removed, and the central lumen of the catheter was flushed and attached to a pressure transducer. Balloon pumping was initiated, adjusting inflation and deflation times to maximize diastolic augmentation and minimize presystolic LV afterload. The intra-aortic balloon catheter was sutured in place at the end of the procedure. Arterial artery hemostasis was achieved. The patient was transferred to a regular nursing floor via cart accompanied by a nurse. The patient left the laboratory in stable condition. Diagnostic Cath Status: Urgent Procedure Procedure Type Diagnostic procedure:Angiography:, Coronary Angios w/LHC, Support:, IABP:, Insertion Indications: Decreased EF and shock. The procedure was explained in detail to the patient. Risks, complications and alternative treatments were reviewed. Written consent was obtained. Medications Reviewed with Patient prior to Procedure. Angiographic Findings Dominance: Mixed Cardiac Arteries and Lesion Findings LMCA: Normal (0% Stenosis).Large caliber vessel. LAD: Normal (0% Stenosis).The LAD is a large caliber vessel, appears normal, with CAROLE II flow. The 1st Diag is a large caliber vessel. The 1st Diag appears normal. LCx: Normal (0% Stenosis).The 1st ob Edwige is a medium caliber vessel. The 1st ob Edwige appears normal. The 2nd ob Edwige is a medium caliber vessel. The 2nd ob Edwige appears normal. The 3rd ob Edwige is a large caliber vessel. The 3rd ob Edwige appears normal. RCA: Normal (0% Stenosis).RCA is normal, Large caliber vessel. The R PL is a large caliber vessel. The R PDA appears normal. The R PDA is a medium caliber vessel. The R PDA appears normal. Procedure Data Procedure Date Date: 07/01/2016Start: 11:26 AMEnd: 11:57 AM Entry Locations - Retrograde Percutaneous access was performed through the Right Femoral artery (Primary location). A 6 Fr sheath was inserted. This was exchanged for a 7.5 Fr sheath. Closure Comments: opal secured with sutured,statlock. Devices Used - A6 Fr. BS JL 4 Diag. Catheterwas used for:Left coronary angiography. - A6 Fr. BS JR 4 Diag. Catheterwas used for:Right coronary angiography. - A6 Fr. BS Angled Pigtail Diag. Catheterwas used for:LV Pressures. Contrast Material - Isovue 62601 ml Fluoroscopy Time: Diagnostic: 3:06 minutes. Total: 3:06 minutes. Fluoroscopy Dose: Diagnostic: 1089 mGy. Total: 1089 mGy. Estimated Blood Loss: 5 ml. Medical History Performed Procedures and Imaging Results - No ACC stress or imaging studies were performed. Allergies - No known allergies. Risk Factors The patient risk factors include:hypertension, insulin-treated diabetes mellitus, last creatinine: 2 mg/dl, creatinine clearance: 62.6 ml/min and dyslipidemia. Admission Data Admission Date: 06/29/2016 Admission Time: 04:28 PM Admit Source: Transfer [facility] Insurance Payors: Medicare. Clinical Evaluation Leading to Procedure - There were no CAD presentation symptoms. - There were no anginal symptoms. - The patient has been in a state of heart failure within the past two weeks. - The patient's heart failure status was assessed as NYHA Class IV. - The patient has been in a state of cardiogenic shock within the last 24 hrs. - The reason for the patient's pit laborer visit is evaluation of cardiomyopathy and/or evaluation of left ventricular systolic dysfunction. [facility] . Ejection Fraction - 06/29/2016 - Method: Echocardiography. EF%: 45. Hemodynamics Condition: Rest Estimated: Heart Rate: 119 bpm Pressures (mmHg) +-----+ + !Site !Pressure ! +-----+ + !AO !112/79 (92) ! +-----+ + !LV !120/13 ,19 ! +-----+ + !LV !120/13 ,20 ! +-----+ + !AO !117/81 (96) ! +-----+ + !LV !120/13 ,20 ! +-----+ + Valve Gradients and Areas + +---------+---------+---------+ +---------+ + !Valve !Peak !Mean !Area !Index !Flow !Source ! + +---------+---------+---------+ +---------+ + !Aortic !2 !0 ! ! ! ! ! + +---------+---------+---------+ +---------+ + !Aortic !2 !0 ! ! ! ! ! + +---------+---------+---------+ +---------+ + Shunts Oxygen Values O2 Capacity 190.4 Signatures dtt: Miguel White (cardio) dtd: 07/01/16 1126 Physician Self Edit
--- NOTE | ~2016-06-29 | HP ---
[facility] AGE: 71 Y [address] ROOM: [place] [address] LOCATION: GICU ADMIT DATE: 06/29/2016 History & Physical DISCHARGE DATE: FAMILY PHYSICIAN: DEYSI BLOOM MD ATTENDING PHYSICIAN: Marjorie TORREZ DATE OF SERVICE: Orthopedic Consult and Injection, Right Shoulder. HISTORY: This 71-year-old male is currently a patient in the Intensive Care Unit. He has a history of diabetes type 2. He was transferred from [place], [place], in circulatory shock and acute respiratory failure on 06/29/2016. He has a history of right shoulder pain dating back off and on for several years, but it seems to have been worse recently. Dr. Jordan aspirated his right shoulder 5 days ago and got no fluid, there did not to be any infection. The shoulder pain is dull and achy, radiates out of the deltoid, hurts to reach, push, or pull. He is weak. Occupational Therapy is seeing him. He says that the pain interferes with their exercises. PAST MEDICAL HISTORY: Diabetes mellitus and hypertension. ALLERGIES: NONE KNOWN. MEDICATIONS: 1. HydroDIURIL. 2. Heparin. 3. Levemir. 4. Insulin. 5. Mucomyst. 6. Toprol. 7. Zyvox. 8. Potassium chloride. SOCIAL HISTORY: Lives by himself. No alcohol or smoking. SURGICAL HISTORY: Herniorrhaphy in 2006. No surgeries on the right shoulder. REVIEW OF SYSTEMS: No coughs, colds, fevers, chills, or sore throats. No chest pain, shortness PATIENT'S NAME: [facility] AGE: 71 Y [address] ROOM: [place] [address] LOCATION: GICU ADMIT DATE: 06/29/2016 History & Physical DISCHARGE DATE: FAMILY PHYSICIAN: DEYSI BLOOM MD ATTENDING PHYSICIAN: Marjorie TORREZ of breath, or trouble breathing. He has had a change in his mental status and had been unresponsive when they found him. No dysuria or hematuria. No nausea or vomiting. No malaise. No skin changes or rashes. PHYSICAL EXAMINATION: GENERAL: He is awake. He is in the ICU. He is sitting up in a chair. He is very weak, but he is able to stand. MUSCULOSKELETAL: His right shoulder has mild tenderness. No warmth or redness. There is a little crepitus. No ecchymosis or swelling. Active abduction and flexion is 60 degrees with pain. Passively, I can get him to about 110 degrees of active flexion. Sensation to motor function intact, upper extremities. Pulses good. Reflexes equal. DIAGNOSTIC DATA: X-rays of right shoulder in the internal and external rotation and Y scapular view show no fractures or other abnormalities. Joint space of the glenohumeral joint is normal. IMPRESSION: 1. Impingement, possible rotator cuff tear, right shoulder. 2. Chronic acromioclavicular arthritis. 3. Hypertension. 4. Sepsis. 5. Change in mental status. 6. Type 2 diabetes. PLAN: Risks and benefits discussed. Consent signed. Time-out was performed. Right shoulder was injected anteriorly into the glenohumeral and subacromial space with 80 mg Depo-Medrol and 5 mL lidocaine. The humeral head appeared to not be covered by the rotator cuff, is the needle hit bone immediately suggesting he has a rotator cuff tear. I spoke with the occupational and Physical therapists, they will work on his shoulder and upper and lower extremities for strengthening. I will follow him up in a few days. MD SAE THOMPSON/tianal PATIENT'S NAME: ESTELLA MOREAU [facility] AGE: 71 Y [address] ROOM: [address] [address] LOCATION: [facility] ADMIT DATE: 06/29/2016 History & Physical DISCHARGE DATE: FAMILY PHYSICIAN: DEYSI BLOOM MD ATTENDING PHYSICIAN: Marjorie TORREZ /[id number] D: [id number] HISTORY & PHYSICAL
--- NOTE | ~2016-06-29 | DS ---
[facility] AGE: 71 Y [address] ROOM: [place] [address] LOCATION: GPCU ADMIT DATE: 06/29/2016 Discharge Summary DISCHARGE DATE: 07/28/2016 FAMILY PHYSICIAN: Khloe Tijerina MD ATTENDING PHYSICIAN: Gary Amador ATTENDING PHYSICIAN: Lester Green M.D. PRIMARY CARE PHYSICIAN: Dr. Tijerina at [facility]. FINAL DIAGNOSES: 1. Shock, a combination of septic as well as cardiogenic, resolved. 2. Cor pulmonale, resolved. 3. Acute hypoxic respiratory failure, status post extubation, resolved. 4. Diabetic ketoacidosis, resolved. 5. Right trapezius hematoma, resolved. 6. Pancreatitis, resolved. 7. Acute kidney injury, resolved. 8. Hypernatremia, resolved. 9. Methicillin-susceptible Staphylococcus aureus bacteremia, currently on antibiotics. 10. Diabetes mellitus. 11. Pancreatic cyst, under surveillance. 12. Adrenal insufficiency, on steroids. 13. Sinus tachycardia, improved. 14. Concern for endocarditis, under surveillance currently. CONSULTATIONS: 1. Critical Care, Dr. Platt. 2. GI, Dr. Sheets. 3. Cardiology, Dr. Miguel White. 4. Orthopedics, Dr. Jordan. 5. Nephrology, Dr. Stroud. 6. Infectious Disease, Dr. Bowens. PROCEDURES: 1. Left heart catheterization with intraaortic balloon pump placement by Dr. White. 2. Attempted aspiration, right glenohumeral joint by Dr. Jordan. REASON FOR ADMISSION: This is a 71-year-old male who was found to be unresponsive. The patient was found to be in circulatory shock, acute respiratory failure, and acute encephalopathy. He was transferred from [place] in critical condition. The patient was intubated at that point of time. He was also found to be in DKA at the time of admission. There was also concern PATIENT'S NAME: PR[facility]ETO [facility] AGE: 71 Y [address] ROOM: [place] [address] LOCATION: GPCU ADMIT DATE: 06/29/2016 Discharge Summary DISCHARGE DATE: 07/28/2016 FAMILY PHYSICIAN: Khloe Tijerina MD ATTENDING PHYSICIAN: Gary Amador for a possible GI bleed and severe pancreatitis at the time of admission. Please see Dr. Vega's admission H and P for further details. DIAGNOSTIC STUDIES: While at [facility], transthoracic echocardiogram was done on admission that showed normal left ventricular contractility with ejection fraction of 60%, dilated IVC with poor inspiratory collapse consistent with elevated right atrial pressure was noted with mild pulmonary hypertension and RVSP 47 mmHg, trivial pericardial effusion detected. The patient underwent a repeat transthoracic echocardiogram that showed ejection fraction of 40% to 45% and no evidence of pericardial effusion. The patient had another transthoracic echocardiogram during this admission that showed ejection fraction of 50% to 55% with normal function of the right ventricle and RVSP at 23 mmHg. Bilateral lower extremity duplex ultrasound was done and was found to be normal with no evidence of DVT. The patient underwent a cardiac catheterization with Dr. White that showed nonobstructive coronary artery disease. An intraaortic balloon pump was placed at that point of time. Repeat duplex study showed no DVT. ABGs were done on a regular basis. The patient had severe acidosis on admission with a pH of 6.83, pCO2 of 57, pO2 of 235. He was intubated at that point of time. ABGs were done on a regular basis till the patient was intubated. On 07/13/2016, this patient's pH was within normal range with pCO2 of 59 and pO2 of 54, at which point he was extubated. Lactate 1.4 on admission, increased to 3.1 on 06/30 and subsequently was stabilizing at 2.9 on 06/30. Serial Accu-Cheks were done and were in the range of 58 to 418, it was 418 on admission. BNP 5813 on admission, subsequently was 633. Serial cardiac enzymes were done. CPK was elevated at 1402 and peaked to 2164 subsequently. Troponin I 0.122 and subsequently was 0.271. Serial CBCs were done. White count on admission was 23.1. The patient was placed on broad- spectrum antibiotics. White count declined to 9.7 on 07/16. Subsequently, the patient had another episode of MSSA bacteremia and was placed on antibiotics. White count at the time of discharge was 15.6. The patient did not have any fever at the time of discharge. Hemoglobin was stable throughout the course of this hospitalization. Platelet count was stable throughout the course of this hospitalization. The patient had serial BMPs done. The patient was supplemented with potassium on several occasions during this hospitalization. The patient had hypernatremia with sodium 152 on 07/06/2016. Nephrology was consulted. Subsequently, his sodium was stable and was 140 at the time of discharge. Blood glucose is as mentioned above. The patient had acute kidney injury, creatinine was 3.1 on admission. After consulting Nephrology and treatment and resolution of septic shock, the patient's creatinine was stable, acute kidney injury resolved. His creatinine was 0.7 at the time of discharge. Liver function tests were normal. Albumin 2.1 on admission, subsequently was 1.9. Magnesium level was 1.3 and was supplemented frequently during this admission, magnesium level was 1.8 and stable at the PATIENT'S NAME: [facility] AGE: 71 Y [address] ROOM: [address] [address] [facility] AD[facility] DATE: 06/29/2016 Discharge Summary DISCHARGE DATE: 07/28/2016 FAMILY PHYSICIAN: Khloe Tijerina MD ATTENDING PHYSICIAN: Gary Amador time of discharge. Liver function tests were elevated on admission; AST increased to 297, ALT 122 at max. Subsequently AST, ALT, and alkaline phosphatase were declined. Bilirubin level was within normal range. GFR 20 on admission and more than 60 at the time of discharge. Hemoglobin A1c 10.4 on admission. Lipid panel was done and showed a cholesterol of 84, triglycerides 100, HDL 40, LDL 24. The patient was placed on a heparin drip briefly and that was discontinued later. UA was done on several occasions; at the time of admission, the patient had hematuria, and showed moderate bacteria. It was repeated later and showed many bacteria with moderate wbc clumps. Urine protein random 70.7, urine sodium random 47, urine creatinine random 60.0. Procalcitonin level 1.43 on admission, peaked to 5.1 the next day. Procalcitonin level was repeated subsequently and was 0.10 at the time of discharge. The patient's amylase was 1021 on admission, lipase 13,359. Subsequently after treatment, amylase was 22 and normal, lipase 57 and normal. ACTH level was 8. Chest x-ray was done on admission and showed endotracheal tube 5 cm by the antonette. NG tube was in place. Low volumes with bibasilar opacity was noted. Chest x-ray was later repeated on a daily basis for placement of line as well as for intubation and ET tube visualization. CT abdomen without contrast was done on admission for pancreatitis and showed bibasilar atelectasis and small pleural effusion. Gallbladder present. Pancreas showed diffuse peripancreatic edema most pronounced at the mid body consistent with pancreatitis. No evidence for developing pseudocyst was noted. No ascites was noted. Appendix was small. The patient also underwent a CT chest for line placement that showed left IJ catheter in the brachiocephalic vein with no evidence of complication. Dependent bilateral lung consolidation and volume loss was noted. Possible pancreatitis was noted. The patient underwent an ultrasound of the abdomen that showed normal gallbladder and biliary tree, normal appearing pancreas and borderline splenic enlargement. CT head was done for altered mental status and showed normal CT scan of the head. Mild left mastoiditis was suspected. The patient had ileus. Abdominal x-ray showed nonspecific and no findings of obstruction. The patient had right shoulder x-ray for pain that showed degenerative change at the AC joint. Renal ultrasound was done for hypernatremia and showed normal study. The patient underwent a V/Q scan to rule out PE and that showed intermediate probability scan for pulmonary embolic disease. Suspected underlying COPD was noted. CT chest PE protocol was done once the patient's kidney function resolved. CT chest PE protocol showed no concern for PE. Diffuse soft tissue swelling involving the right trapezius muscle of uncertain significance was noted. CT abdomen was again repeated that showed masslike lesion involving the pancreatic head and second portion of the duodenum, new since past and most suspicious for hematoma. No evidence of pyelonephritis was noted. The patient underwent an MRI abdomen for pancreatic head mass evaluation prior to discharge and showed pancreatic head lesion representing a complex cyst, most suspicious of a postinflammatory pseudocyst, abscess less likely. Repeat CT in 3 months was recommended. PATIENT'S NAME: [facility] AGE: 71 Y [address] ROOM: [place] [address] LOCATION: GPCU ADMIT DATE: 06/29/2016 Discharge Summary DISCHARGE DATE: 07/28/2016 FAMILY PHYSICIAN: Khloe Tijerina MD ATTENDING PHYSICIAN: Gary Amador BAL was negative. Blood culture was negative on admission. Urine culture showed Staphylococcus aureus, resistant to insulin. Blood cultures were repeated later again during this admission and remained negative. Stool culture was negative. Stool was negative for C. diff. Blood cultures were done again on 07/21/2016 and showed Gram-positive cocci in clusters and showed Staphylococcus aureus, resistant to insulin, but sensitive to oxacillin. Urine culture at that point of time showed Klebsiella oxytoca that was resistant to Zosyn and cefazolin and ampicillin. Catheter tip was cultured and showed no growth. Blood culture was later repeated after the patient was placed on antibiotics and showed no growth. Repeat blood culture was negative. HOSPITAL COURSE: This is a 71-year-old male who had a very complicated course. The patient presented from an outlying facility after he was found to be unresponsive. He presented with elevated pancreatic enzymes, concern for pancreatitis. He also had DKA, was found to be unresponsive, and there was concern for acute hypoxic respiratory failure. The patient was intubated. He was found to be severely acidotic at that point of time. The patient also had shock that was thought to be likely secondary to cardiogenic versus septic reasons. After the patient was admitted to ICU, he underwent a line placement with Dr. Platt. The patient was intubated. Dr. Platt followed up with the patient. For his diabetic ketoacidosis, the patient was placed on the DKA protocol. His electrolytes were replaced. He was aggressively hydrated with IV fluids and placed on an insulin drip. DKA subsequently resolved. The patient was then placed on his regular insulin. His blood sugars were stable throughout the rest of the course of his hospitalization. The patient was found to have acute hypoxic respiratory failure and was intubated. He remained intubated in the ICU for several days. Repeat chest x- rays were done for endotracheal tube placement. Once the patient was stable, the patient was extubated. He was then placed on PCU. The patient presented with severe shock, this was likely secondary to septic as well as cardiogenic shock. Cardiology was consulted. The patient's enzymes were evaluated and were elevated. There was concern for cardiogenic shock. The patient underwent left heart catheterization that showed nonobstructive coronary artery disease. He received intraaortic balloon pump upon admission. Intraaortic balloon pump was subsequently discontinued. The patient developed a cor pulmonale. He was intubated and was on 3 pressors at that point of time. He was subsequently transitioned to intraaortic balloon pump. Once his blood pressure stabilized, he was able to be weaned PATIENT'S NAME: [facility] AGE: 71 Y [address] ROOM: [address] [place] [id number] LOCATION: GPCU ADMIT DATE: 06/29/2016 Discharge Summary DISCHARGE DATE: 07/28/2016 FAMILY PHYSICIAN: Khloe Tijerina MD ATTENDING PHYSICIAN: Gary Amador off all pressors and intraaortic balloon pump was removed. He was also extubated at that point of time. At the time of discharge, the patient was not requiring any oxygen. There was concern for pancreatitis. GI was consulted. There was also concern for GI bleed; however, the patient's hemoglobin was stable and no endoscopy needed to be done. The patient's pancreatitis subsequently resolved. A CT abdomen was done after the patient was much more stable and showed likely pancreatic cyst. An MRI was done prior to discharge and showed complex pancreatic cyst. GI was consulted again and they recommended repeat followup with GI and repeat scan in 3 months' time to ensure resolution of the pancreatic cyst. The patient was found to have a right trapezius muscle hematoma. Orthopedics followed up with the patient. Initially, there was also concern for septic joint. The patient had aspiration of his right glenohumeral joint, but it was found to be not infected. The patient was found to be in septic shock. He was placed on broad-spectrum antibiotics initially. His blood cultures were negative; however, the patient was found to have a UTI with Staphylococcus aureus. Once his infection was resolved, his antibiotics were discontinued. During this admission, once his antibiotics were discontinued, the patient again developed elevated white count. Sepsis workup was initiated again. The patient was found to have MSSA bacteremia. He was placed on oxacillin. ID was consulted. Infectious Disease thought that the patient had infected line. Catheter tip was however negative. Infectious Disease recommended cefazolin treatment for the patient for 2 weeks, a repeat blood culture 1 week after the antibiotics stopped at the [facility]. If the patient's blood cultures are still positive, there will be concern for endocarditis and the patient will need a WEN for evaluation. The patient will follow up with ID. There was concern for PE. The patient was placed on a heparin drip. He was continued on the heparin drip for that. Once his kidney function stabilized, CT chest PE protocol was done and showed no PE. Heparin drip was then discontinued. The patient has recurrent UTI. Urology was consulted prior to discharge. They recommended a postvoid residual, which was found to be normal. The patient did not have a Florez catheter and was voiding fine at the time of discharge. He will follow up with the Urology. He was placed on Flomax at the time of discharge. The patient was also found to have adrenal insufficiency and was on p.o. PATIENT'S NAME: [facility] AGE: 71 Y [address] ROOM: [place] [address] LOCATION: GPCU ADMIT DATE: 06/29/2016 Discharge Summary DISCHARGE DATE: 07/28/2016 FAMILY PHYSICIAN: Khloe Tijerina MD ATTENDING PHYSICIAN: Gary Amador steroids at the time of discharge. For several days after transferred to PCU from the ICU, the patient was ambulating. He was off oxygen. He was tolerating p.o. He was ambulating with the help of a walker. Had regular bowel movement. He continued to do well. A PICC line was placed prior to discharge for 2-week antibiotic therapy. The patient continued to do well and was discharged to [facility] bed in stable condition. I updated Dr. Tijerina about the patient's complicated course. Further recommendations per the accepting physician at [facility]. Accepting physician was Dr. Tijerina. DISCHARGE INSTRUCTIONS: The patient was discharged to [facility] in stable condition. Accepting physician is Dr. Tijerina. The patient to follow up with Dr. Tijerina in 3 to 4 days' time. PCP to check a CBC and CMP at followup. The patient also needs blood cultures x2 on 08/13/2016 per ID recommendations. If positive, PCP to contact ID at [facility] and the patient may need a WEN. The patient also needs a followup with Urology, Dr. Blanc in 4 weeks; followup with ID at [facility] in 3 weeks; and followup with GI at [facility] in 4 weeks. The patient needs a CT abdomen for resolution of pancreatic pseudocyst, GI to follow up. The patient is a full code patient. He is not in isolation. He is on a regular diet. Calorie count is not needed. He is not n.p.o. Weightbearing is as tolerated. Use walker for assistance. OT and PT to evaluate and treat as indicated. O2 p.r.n. to keep saturations more than 90%. He does not have a urinary catheter. The patient has a PICC line and PICC line care as per PCP. He may not have alcoholic beverages. Rehab potential is fair. Discharge potential fair. The patient and family aware of condition and prognosis and were updated by me on the day of discharge. May crush appropriate medications. DISCHARGE MEDICATIONS: 1. Cefazolin 2 g IV every 8 hours for sepsis, stop date 08/06/2016. The patient needs repeat blood culture on 08/13/2016; if positive, contact ID. 2. Aspirin 81 mg p.o. daily for CAD. 3. NovoLog aggressive sliding scale insulin subcu before meals and at bedtime for diabetes mellitus. 4. Levemir 35 units subcu every a.m. for diabetes mellitus. 5. Milk of magnesia 30 mL p.o. daily p.r.n. constipation. 6. Magnesium oxide 400 mg p.o. b.i.d. for hypomagnesemia. 7. Lopressor 25 mg p.o. b.i.d. for hypertension, hold if systolic blood pressure is less than 110 or heart rate less than 60. 8. Nystatin 15 g powder, apply topically twice daily over the groin area b.i.d. for rash. 9. Protonix 40 mg p.o. b.i.d. for GERD. 10. MiraLax 17 g p.o. b.i.d. for constipation. PATIENT'S NAME: [facility] AGE: 71 Y [address] ROOM: [place] [address] LOCATION: GPCU ADMIT DATE: 06/29/2016 Discharge Summary DISCHARGE DATE: 07/28/2016 FAMILY PHYSICIAN: Khloe Tijerina MD ATTENDING PHYSICIAN: Gary Amador 11. Prednisone 5 mg p.o. daily for adrenal insufficiency. 12. Flomax 0.4 mg p.o. at bedtime for BPH. 13. Tylenol 650 mg p.o. q.4 hours p.r.n. pain/fever. 14. Glucagon 1 mg subcu for hypoglycemia p.r.n. 15. Glucose 16 g p.o. for hypoglycemia p.r.n. 16. DuoNeb inhalation 1 inhalation as needed p.r.n. dyspnea. LESTER GREEN MD MT/tianal /[id number] CC: Khloe Tijerina MD d: 07/29/16 0540 t: 07/31/16 2146, DISCHARGE SUMMARY
--- NOTE | ~2016-06-29 | CON ---
PATIENT'S NAME: PRIETO [facility] AGE: 71 Y [address] ROOM: [address] [address] LOCATION: GICU ADMIT DATE: 06/29/2016 Consultation DISCHARGE DATE: FAMILY PHYSICIAN: DEYSI BLOOM MD ATTENDING PHYSICIAN: Marjorie TORREZ CHIEF COMPLAINT/HISTORY OF PRESENT ILLNESS: This is a 71-year-old male who I was asked to see regarding his right shoulder. The patient was originally admitted to ICU on 06/29/2016 as he was found unresponsive at his home in [place], [place]. Apparently, he had intraosseous fluids instilled into him in his right humeral head and his left proximal tibia when he was unresponsive. He was found to be in circulatory shock and hypotensive with an acute encephalopathy. He has also been diagnosed with acute pancreatitis. Apparently, there was some history of right shoulder pain in the weeks prior to his illness. He has been noted to have right shoulder pain and no other joints appeared to bother him. He denies knee pain or left shoulder pain. He denies hip pain on either side. PAST MEDICAL HISTORY: The patient has type 2 diabetes mellitus, essential hypertension, dyspnea on exertion. OPERATIONS: Hernia repair in 2006. ALLERGIES: NO KNOWN MEDICATION ALLERGIES. MEDICATIONS: The patient is on multiple medications in Intensive Care Unit. PHYSICAL EXAMINATION: GENERAL: This is an elderly male who is on rebreather mask and BiPAP. He is responsive and he will voice complaints. He is able to sit up with quite a bit of help. VITAL SIGNS: Blood pressure 106/72, heart rate 120, respirations 26, temperature 99.4. EXTREMITIES: There is no effusion in either knee. He moves his knees without any apparent pain. Hip range of motion to internal and external rotation is painless. Left shoulder abducts actively to 180 degrees. Right shoulder abducts to about 60 degrees. He does not appear to have pain on shoulder internal and external rotation. There is no grinding or crepitus on shoulder motion. There is what appears to be an old scar that is fairly recent from probably the interosseous infusion. RADIOGRAPHS: PATIENT'S NAME: PR[facility]O [facility] AGE: 71 Y [address] ROOM: [id number] [place], [place] [address] LOCATION: [facility] ADMIT DATE: 06/29/2016 Consultation DISCHARGE DATE: FAMILY PHYSICIAN: DEYSI BLOOM MD ATTENDING PHYSICIAN: Marjorie TORREZ Radiographs of the shoulder are reviewed. An AP of the shoulder with the humerus in internal and external rotation and also about Y-scapular view. These showed no bony injuries or abnormalities and good glenohumeral joint space. IMPRESSION: The patient has been septic and he does have shoulder pain. I certainly cannot rule out septic arthritis at this point by exam. PLAN: We decided to aspirate his shoulder. The procedure, its risks, benefits, and alternatives were discussed the patient who appears to understand and requests to proceed. MD AALIYAH SINGH/tianal /[id number] d: 07/08/16 0135 t: 07/08/16 1110, CONSULTATION REPORT
--- NOTE | ~2016-06-29 | CON ---
PATIENT'S NAME: PRIETO ESTELLA [facility] AGE: 71 Y [address] ROOM: [place] [address] LOCATION: GICU ADMIT DATE: 06/29/2016 Consultation DISCHARGE DATE: FAMILY PHYSICIAN: DEYSI BLOOM MD ATTENDING PHYSICIAN: Marjorie TORREZ DATE OF CONSULTATION: 06/30/2016 HOSPITAL CONSULTATION REASON FOR CONSULTATION: Possible pancreatitis, coffee-ground emesis. HISTORY OF PRESENT ILLNESS: This is a 71-year-old gentleman with past medical history of diabetes mellitus type 2, who was transferred from [place], [place] for circulatory shock, acute respiratory failure, and acute encephalopathy. The patient had been started on amoxicillin per his family approximately 5 days ago with a cough. He was last seen normal on Sunday. The patient called into the primary care on the day of admission and did not sound well. Family members found the patient at home unresponsive. The patient was then transferred to [facility] for definitive care. He was intubated and given broad-spectrum antibiotic coverage. He was also found to have initial ST-elevation, though the EKG was repeated with no signs of any abnormalities. En route, the patient was found to have coffee-ground emesis through his OG tube. As we were asked to see in consultation. The patient also had a chest thorax CT as there was noted possible pancreatitis from the imaging. Current abdominal CT and ultrasound are currently pending. Lipase was elevated at 13,359 with amylase of 1021. The patient was seen in intensive care. The patient remains intubated and unable to answer any questions at this time. PAST MEDICAL HISTORY: Diabetes mellitus, hypertension per medical record PAST SURGICAL HISTORY: Hernia repair in 2006, unknown any history of upper endoscopy or colonoscopy. SOCIAL HISTORY: Unable to perform secondary to the patient's mentation status. FAMILY HISTORY: Unable to obtain secondary to the patient's mentation. ALLERGIES: PER MEDICAL RECORDS SHOW NO KNOWN MEDICATION ALLERGIES. PATIENT'S NAME: PRIETO ESTELLA [facility] AGE: 71 Y [address] ROOM: [place] [address] LOCATION: GICU ADMIT DATE: 06/29/2016 Consultation DISCHARGE DATE: FAMILY PHYSICIAN: DEYSI BLOOM MD ATTENDING PHYSICIAN: Marjorie TORREZ CURRENT MEDICATIONS: Please refer to the medication administration record. REVIEW OF SYSTEMS: A 10-point review of systems was completed. All were negative except for those identified in the history of present illness. PHYSICAL EXAMINATION: GENERAL: A 71-year-old male, lying in bed, currently intubated, who appears to be in no acute distress. VITAL SIGNS: Temperature 98.2, pulse of 129, oxygen saturations 94% on room air, respirations 22, blood pressure 93/60. SKIN: Slightly pale, warm, and dry. No jaundice. HEENT: Head is normocephalic and atraumatic. Pupils are equal, round, and reactive to light. Sclerae are clear. Nonicteric. Oral mucosa is pink and moist. No thyromegaly. NECK: Soft and supple. CARDIOVASCULAR: Regular. Normal S1, S2. RESPIRATORY: Even and unlabored. Lungs are clear to auscultation, slightly diminished in the bilateral lobes. ABDOMEN: Soft, round, nontender per nonverbal cues. Bowel sounds positive x4 quadrants. MUSCULOSKELETAL: No muscle weakness or atrophy. EXTREMITIES: No clubbing, cyanosis, or edema. NEUROLOGICAL: Nonfocal. LABS AND DIAGNOSTICS: White blood cell count of 13.4, hemoglobin of 14.6, hematocrit of 42.4, and platelets of 329. Chemistry panel includes a glucose of 164, BUN of 58, creatinine 2.7, sodium 140, potassium of 4.8, chloride of 109, CO2 of 21, albumin of 1.8, phosphorus of 1.7. Amylase at 1021, lipase of 13,359. Thorax CT scan did show upper abdomen has haziness around the pancreas, nonobstructive bowel pattern. CT abdomen and pelvis as well as abdominal ultrasound are pending at this time. ASSESSMENT AND PLAN: Again, this is a 71-year-old male, who was transferred from [place], [place], after being found unresponsive at home. The patient is currently being managed by our carpenter mold with acute respiratory failure, currently intubated. On admission, he did appear to have metabolic acidosis and was thought to be in diabetic ketoacidosis secondary to low pH. He also was found to have a right lower lobe pneumonia. At this time, we were asked to see in consultation for coffee-ground emesis as well as possible pancreatitis noted PATIENT'S NAME: ESTELLA MOREAU [facility] AGE: 71 Y [address] ROOM: [place] [address] LOCATION: GICU ADMIT DATE: 06/29/2016 Consultation DISCHARGE DATE: FAMILY PHYSICIAN: DEYSI BLOOM MD ATTENDING PHYSICIAN: Marjorie TORREZ on chest CT. 1. Coffee-ground emesis. The patient's hemoglobin at this time is stable. There appears to be a small amount of coffee-ground emesis draining from his OG tube. At this time, it is recommended to continue Protonix and continue watching his hemoglobin and hematocrit. If further drop, the patient may need an upper endoscopy, though at this time, we will hold on any endoscopy needs. 2. Pancreatitis. Lipid profile should be obtained to rule out hypertriglyceridemia. The patient is on numerous diabetic medications including Glyxambi. Do question if this may be secondary to drug induced. We will also await for CT abdomen and pelvis as well as abdominal ultrasound to rule out biliary etiology. Further recommendations to be given over the course of the patient's hospitalization. ONEIL CROW MD MMF/modl /[id number] d: 06/30/16 2258 t: 08/11/16 0844, CONSULTATION REPORT
--- NOTE | ~2016-06-29 | ENPV ---
Vascular Lower Extremities DVT Study Procedure Demographics Patient Name ESTELLA MOREAU Date of Study 07/07/2016 Patient Number [id number] Gender Male Date of 1945 Age 71 Visit Number [id number] Height 70 Accession Number [id number] Weight 288.01 Referring Wendy Tran MD Interpreting Bertin Babcock MD Physician Physician Physician Ordering Wendy Tran Genetic Coordinator Physician Line Up Examiner Sydni Barnard, RT,RVT,RDCS Conclusions Summary Normal venous duplex examination of the legs bilaterally with normal venous Doppler signals noted throughout. No evidence of thrombophlebitis is noted bilaterally in the deep and superficial veins of the legs. Small calf thrombi cannot be excluded. Procedure Type of Study: Veins:Lower Extremities DVT Study, Venous Duplex Lower Extremity Bilateral. Appropriate Use Criteria:9 Allergies - No known allergies. Patient Status:Routine. Study Location:Inpatient Portable. Technical Quality:Adequate visualization. - Preliminary reported to:TIFFANIE Zuleta. Risk Factors - The patient's risk factor(s) include: insulin-treated diabetes mellitus, dyslipidemia and arterial hypertension. - The patient's last creatinine was 2 mg/dl. Velocities are measured in cm/s ; Diameters are measured in cm Right Lower Extremities DVT Study Measurements Right 2D and Doppler Measurements + + + + +------+------+ + !Location !Visualized!Compressibility!Thrombosis!Signal!Reflux!Reflux ! ! ! ! ! ! ! !(sec) ! + + + + +------+------+ + !GSV Thigh !Yes !Yes !None !Phasic!No ! ! + + + + +------+------+ + !Common !Yes !Yes !None !Phasic!No ! ! !Femoral ! ! ! ! ! ! ! + + + + +------+------+ + !Prox !Yes !Yes !None !Phasic!No ! ! !Femoral ! ! ! ! ! ! ! + + + + +------+------+ + !Mid Femoral!Yes !Yes !None !Phasic!No ! ! + + + + +------+------+ + !Dist !Yes !Yes !None !Phasic!No ! ! !Femoral ! ! ! ! ! ! ! + + + + +------+------+ + !Popliteal !Yes !Yes !None !Phasic!No ! ! + + + + +------+------+ + !Gastroc !Yes !Yes !None !Phasic!No ! ! + + + + +------+------+ + !PTV !Yes !Yes !None !Phasic!No ! ! + + + + +------+------+ + !Peroneal !Yes !Yes !None !Phasic!No ! ! + + + + +------+------+ + Left Lower Extremities DVT Study Measurements Left 2D and Doppler Measurements + + + + +------+------+ + !Location !Visualized!Compressibility!Thrombosis!Signal!Reflux!Reflux ! ! ! ! ! ! ! !(sec) ! + + + + +------+------+ + !GSV Thigh !Yes !Yes !None !Phasic!No ! ! + + + + +------+------+ + !Common !Yes !Yes !None !Phasic!No ! ! !Femoral ! ! ! ! ! ! ! + + + + +------+------+ + !Prox !Yes !Yes !None !Phasic!No ! ! !Femoral ! ! ! ! ! ! ! + + + + +------+------+ + !Mid Femoral!Yes !Yes !None !Phasic!No ! ! + + + + +------+------+ + !Dist !Yes !Yes !None !Phasic!No ! ! !Femoral ! ! ! ! ! ! ! + + + + +------+------+ + !Popliteal !Yes !Yes !None !Phasic!No ! ! + + + + +------+------+ + !Gastroc !Yes !Yes !None !Phasic!No ! ! + + + + +------+------+ + !PTV !Yes !Yes !None !Phasic!No ! ! + + + + +------+------+ + !Peroneal !Yes !Yes !None !Phasic!No ! ! + + + + +------+------+ + Signature dtt: FAHAD FRANCISCO dtd: 07/07/16 1317 Physician Self Edit
--- NOTE | ~2016-06-29 | CON ---
PATIENT'S NAME: PRIETO [facility] AGE: 71 Y [address] ROOM: [facility] [place] [id number] LOCATION: GPCU ADMIT DATE: 06/29/2016 Consultation DISCHARGE DATE: FAMILY PHYSICIAN: DEYSI BLOOM MD ATTENDING PHYSICIAN: Marjorie VEGA DATE OF SERVICE: 07/16/16 REQUESTING PHYSICIAN: Dr. Marjorie Vega. REASON FOR CONSULTATION: Staphylococcus aureus bacteremia. SUBJECTIVE: Mr. Corey is a pleasant 71-year-old male, whom I was asked to see in consultation by Dr. Vega for further evaluation and recommendations regarding staphylococcal bacteremia. He was admitted on 06/29/2016 with shock after being transferred from [place], [place]. Apparently, he had been ill starting about 5 days earlier due to cough and was put on amoxicillin. He was found unresponsive, and was brought in by ambulance. He was initially treated with IV vancomycin and Zosyn. His initial assessment was circulatory shock, pancreatitis, and diabetic ketoacidosis. The possibility of pancreatitis and ketoacidosis due to one of his diabetes medications was considered. His lipase was elevated at 13,000. Subsequently, some time after his initial admission, he was found to have positive blood cultures, as noted below. He has been placed on ceftriaxone. PAST MEDICAL HISTORY: Diabetes mellitus, hypertension, and obesity. CURRENT MEDICATIONS: See the MAR for complete listing. ALLERGIES: NONE NOTED. SOCIAL HISTORY: No tobacco or alcohol abuse history. FAMILY HISTORY: Unremarkable and noncontributory to current illness. REVIEW OF SYSTEMS: A complete review of systems was carried out, was remarkable only as noted. Please refer to prior notes in the record for complete details. PATIENT'S NAME: PRIETO [facility] AGE: 71 Y [address] ROOM: [facility] [place], [place] [address] LOCATION: GPCU ADMIT DATE: 06/29/2016 Consultation DISCHARGE DATE: FAMILY PHYSICIAN: DEYSI BLOOM MD ATTENDING PHYSICIAN: Marjorie VEGA OBJECTIVE: GENERAL: He appeared comfortable and was in no distress. VITAL SIGNS: Temperature was 36.6 degrees, blood pressure 123/69, pulse 114, and respirations 20. HEENT: Posterior pharynx clear. No adenopathy or thyromegaly. NECK: Supple. EYES: Cranial nerves intact. CHEST: Clear to auscultation. CARDIOVASCULAR: Regular rate and rhythm without S3, S4, or murmur. ABDOMEN: Soft and nontender without hepatosplenomegaly or masses. EXTREMITIES: Unremarkable. NEUROLOGIC: Strength and sensation grossly intact. PSYCHIATRIC: Behavior and affect appropriate. LABORATORY DATA: Creatinine 0.7. Liver function tests normal. Lipase is 57. Hemoglobin A1c 10.4. White count 14.8. Microbiology: Blood cultures x2, 07/24/2016, showed no growth to date. Catheter tip, 07/22/2016, shows no growth. Urine culture, 07/21/2016, shows Klebsiella oxytoca. Blood cultures x2, 07/20/2016, shows Staphylococcus aureus, both sets. Blood cultures x1, 07/15/2016, shows no growth to date. CDT, 07/12/2016, is negative. RADIOLOGY: No recent studies, prior studies reviewed. Prior CT scan on 07/21/2016 shows a masslike lesion around the pancreatic head consistent with hematoma, possibly secondary to pancreatitis. IMPRESSION: 1. Staphylococcus aureus (Methicillin-sensitive Staphylococcus aureus) bacteremia. 2. Klebsiella bacteriuria with pyuria, asymptomatic. Other diagnoses are stable, as noted in the past medical history. He appears to have recovered well from his severe acute pancreatitis. PLAN: As he had a short-lived bacteremia, presumably due to a central line which was subsequently removed, I would recommend 2 weeks therapy, then followup blood cultures. We will change to cefazolin 2 grams every 12 hours for 2 weeks from bloodstream clearance, 07/24/2016. I have ordered followup blood cultures for 1 week after completing therapy. If he has any further positive blood cultures, then the duration of therapy would need to be extended, and he might need further workup for endocarditis. PATIENT'S NAME: ESTELLA COREY [facility] AGE: 71 Y [address] ROOM: [id number] [place] [id number] LOCATION: GPCU ADMIT DATE: 06/29/2016 Consultation DISCHARGE DATE: FAMILY PHYSICIAN: DEYSI BLOOM MD ATTENDING PHYSICIAN: Marjorie VEGA I note that an echocardiogram on 07/10/2016 was unremarkable without valvular findings. Regarding the asymptomatic bacteriuria, he has had enough treatment already for the Klebsiella and should not require further therapy. Thank you for this consultation. As he is planning to go back home to [place] to a Swing Bed, I do not think it would be easy for him to come back for followup, but we would be glad to see him back at any time and can discuss his case with treating physicians there as needed. I am available by phone at . MD PRINCE JANSEN/modl /[id number] CC: Marjorie VEGA d: 07/26/162026 t: 07/27/16 0754, CONSULTATION REPORT
--- NOTE | ~2016-06-29 | CON ---
PATIENT'S NAME: ESTELLA MOREAU [facility] AGE: 71 Y [address] ROOM: [address] [place], [place] [address] LOCATION: GICU ADMIT DATE: 06/29/2016 Consultation DISCHARGE DATE: FAMILY PHYSICIAN: PHYSICIAN, UNKNOWN ATTENDING PHYSICIAN: Marjorie VEGA DATE OF CONSULTATION: 06/29/2016 REFERRING PHYSICIAN: Gary Amador MD REASON FOR CONSULTATION: Evaluation and management of a patient with acute respiratory failure and shock. CHIEF COMPLAINT: Unresponsiveness. HISTORY OF PRESENT ILLNESS: This is a 71-year-old male who was transferred from an outside hospital to our intensive care unit for a higher level of care. At the time of my examination, the patient was intubated and unresponsive despite not being sedated. All the information was obtained from reviewing the medical records and talking to the other healthcare providers. Apparently, today the patient was found unresponsive at home and transferred to [facility] in [place]. Because of his profound unresponsiveness and hypothermia with a temperature of 92.6, he was promptly intubated and subsequently started on norepinephrine drip. He also received 2 L of NS fluid on his way to the local emergency department. Two intraosseous lines were placed together with 2 peripheral IV lines for better access. There was concern for ST-elevation on the EKG and he had positive myoglobin and CPK. For this reason, our Cardiology Services were contacted and they recommended transfer to our facility for further management. Upon arrival to our intensive care unit, an ABG revealed a pH of 6.83, pCO2 of 57, PO2 of 235 while on supplemental oxygen at 100% FiO2. The base deficit was 26. He has a history of diabetes mellitus apparently and there was a concern for DKA. For this reason, he was started on insulin drip and given 2 amps of bicarb. Mechanical ventilator settings at the time of my evaluation were tidal volume of 600, respiratory rate of 18, 60% FiO2, and a PEEP of 5. He was still on Levophed drip at 0.05 mcg/kg per minute with normal saline running as well. The end-tidal CO2 was in the upper 20s. Potassium was 4.9 upon arrival to our intensive care unit. I promptly placed a left IJ central line catheter without any complications during the procedure. The right IJ was very collapsible and probably hard to cannulate. Please note that he also had an OG tube with evidence of bloody return. PAST MEDICAL HISTORY: 1. Hypertension. 2. Type 2 diabetes mellitus. PATIENT'S NAME: ESTELLA MOREAU [facility] AGE: 71 Y [address] ROOM: [place] [address] LOCATION: GICU ADMIT DATE: 06/29/2016 Consultation DISCHARGE DATE: FAMILY PHYSICIAN: PHYSICIAN, UNKNOWN ATTENDING PHYSICIAN: Marjorie VEGA PAST SURGICAL HISTORY: Hernia repair in 2006. MEDICATIONS: At home, he was on, 1. Amoxicillin. 2. Aspirin. 3. Enalapril. 4. Glipizide. 5. Glyxambi. 6. Metformin. ALLERGIES: NO KNOWN ALLERGIES. FAMILY HISTORY: Could not be performed because of the patient's clinical status. REVIEW OF SYSTEMS: Could not be performed because of the patient's clinical status. SOCIAL HISTORY: Apparently, he lives alone and is a never smoker. PHYSICAL EXAMINATION: VITAL SIGNS: Temperature is 99, heart rate is 102, respiratory rate is 16, blood pressure is 102/60, and oxygen saturation 100% on 60% FiO2 and PEEP of 5. Weight 128 kilos, height 5 feet and 10 inches with a BMI of 40.4. GENERAL: He is a male, intubated and sedated with a sedation- analgesia score of 2. HEENT: Atraumatic head. Pupils had very sluggish response to light. Anicteric sclerae. Dry oral mucosa. NECK: Thick. Could not evaluate for JVD. Trachea midline. No thyromegaly. CARDIOVASCULAR: Regular rhythm. Tachycardic with a heart rate of 112 on my examination. No murmur, rubs, or gallops. RESPIRATORY: He had decreased breath sounds at both lung bases; otherwise, clear to auscultation. ABDOMEN: Soft. Mildly distended. GENITOURINARY: He had a Florez present with small amount of cloudy urine. EXTREMITIES: No lower extremity edema. No cyanosis and no clubbing. LABORATORY DATA: Pertinent data as per history of present illness. At the outside hospital, his INR was 1.15, PT was 12.7, APTT was 40, platelets were 434, hematocrit was PATIENT'S NAME: ESTELLA MOREAU [facility] AGE: 71 Y [address] ROOM: [id number] [place], [place] [address] LOCATION: GICU ADMIT DATE: 06/29/2016 Consultation DISCHARGE DATE: FAMILY PHYSICIAN: PHYSICIAN, UNKNOWN ATTENDING PHYSICIAN: Marjorie VEGA 50.4%, hemoglobin was 15.9. He had 87.2% neutrophils with 9% bands. CT of the head done at outside hospital revealed no significant abnormalities. Chest x-ray done upon arrival to our ICU revealed the endotracheal tube in good position. He had bilateral opacities or possible atelectasis. Creatinine was 2.48, BUN was 70, glucose of 619, total serum bicarbonate of 4, chloride of 81, calcium of 9.5. LDH was 223. CK-MB was 19.7 and myoglobin was 2046 which is significantly elevated with the upper limit of normal being 72. ASSESSMENT AND PLAN: 1. Acute respiratory failure. This is secondary to shock and profound metabolic acidosis. The patient is still acidotic despite being on mechanical ventilation. He also has a degree of respiratory acidosis, which we will try to correct. 2. Metabolic acidosis. This is very severe and most likely due to diabetic ketoacidosis and shock state. 3. Respiratory acidosis. This is due to shock state and we will try to correct it while the patient is intubated. 4. Shock. This is most likely a combination of septic and hemorrhagic type. I suspect the right lower lobe pneumonia as a source of infection. 5. Right lower lobe pneumonia. This would be of community-acquired pneumonia type. He was already started on cefepime and linezolid by the admitting physician. 6. Upper gastrointestinal bleeding. 7. Acute kidney injury. This is most likely due to shock and hypovolemia. PLAN: 1. I would continue with mechanical ventilation, and we will recheck ABG and monitor the respiratory status very closely. I will adjust the minute ventilation to correct the acidosis as much as possible. 2. We will continue with vasopressors and titrate them to keep mean arterial pressures more than 65. The 2nd vasopressor of choice would be vasopressin. 3. I will recommend GI consult and we will follow up their recommendations. 4. We will continue antibiotics and aggressive IV fluid resuscitation. The current assessment and plan was discussed with Dr. Vega and the patient's [id number] who was present briefly at the bedside. The patient's daughter will arrive later and we will try to update her about her father's condition. I spent 40 minutes of critical care time managing acute respiratory failure in a patient with profound metabolic acidosis, shock, and other comorbidities. I personally reviewed the data, coordinated care among healthcare providers, and I updated the family at the bedside. This time is independent from the time spent for procedures. PATIENT'S NAME: ESTELLA MOREAU [facility] AGE: 71 Y [address] ROOM: [place] [address] LOCATION: [facility] ADMIT DATE: 06/29/2016 Consultation DISCHARGE DATE: FAMILY PHYSICIAN: PHYSICIAN, UNKNOWN ATTENDING PHYSICIAN: Marjorie VEGA MD MITCHELL SEQUEIRA/zuleika /[id number] d: 06/30/16 0113 t: 06/30/16 0908, CONSULTATION REPORT
[2016-06-29 17:14] LABS: BICARBONATE 9.3 mmol/L (18.0-23.0); PCO2 57 mmHg (35-45); PO2 235 mmHg (80-90)
--- NOTE | 2016-06-29 17:40 | NUR ---
D: RESP FAILURE I: VENT R: PT ARRIVED IN ICU A LITTLE BEFORE 17:00, PT WAS ON AC 12, VT 500, P5 100% FIO2 INITIALLY & WHEN I LUISANA AN ABG, CHANGED VENT SETTINGS TO AC 18, VT 600, P5, WEANED FIO2 TO 60%, PT HAS AN 8.0 ETT SECURED @ 24 @ TEETH VIA AN ETAD, INITIAL ETCO2 WAS 35, NO OTHER SIGNIFICANT CHANGES AT THIS TIME P: CONT TO WEAN FIO2
[2016-06-29 18:53] LABS: LACTATE 1.4 mEq/L (0.50-1.60)
[2016-06-29 19:03] LABS: PCO2 41 mmHg (35-45); PO2 158 mmHg (80-90)
[2016-06-29 19:05] LABS: INR - (THERAPEUTIC) 1.13 (0.92-1.07); PROTIME 11.9 SECONDS (9.8-11.4)
[2016-06-29 19:17] LABS: BICARBONATE 9.5 mmol/L (18.0-23.0); PCO2 46 mmHg (35-45); PO2 84 mmHg (80-90)
[2016-06-29 19:24] LABS: ALBUMIN 2.3 gm/dL (3.5-5.0); CREATININE 3.1 mg/dL (0.6-1.3); POTASSIUM 4.7 mMol/L (3.7-5.1); TOTAL BILIRUBIN 0.5 mg/dL (0.0-1.5); TOTAL PROTEIN 7.6 g/dL (6.0-8.4)
[2016-06-29 19:26] LABS: ANION GAP 29.7 (10.0-19.0)
[2016-06-29 20:29] LABS: BICARBONATE 10.4 mmol/L (18.0-23.0); PO2 71 mmHg (80-90)
[2016-06-29 20:37] LABS: PCO2 36 mmHg (35-45)
[2016-06-29 21:20] LABS: BASOPHIL # 0.1 K/uL (0.0-0.2); BASOPHIL % 0.4 %; HEMATOCRIT 46.3 % (37.0-53.0); HEMOGLOBIN 14.9 g/dL (11.0-16.0); IMMATURE GRANULOCYTE # 0.9 K/uL (0.0-0.3); IMMATURE GRANULOCYTE % 3.8 %; LYMPHOCYTE % 4.3 %; MCH 30.6 pg (27.0-34.0); MCHC 32.2 gm/dL (32.0-36.5); MCV 95.1 fl (83.0-98.0); MONOCYTE % 4.5 %; MPV 9.9 fl (9.4-12.4); NEUTROPHIL # (ANC) 20.1 K/uL (1.4-9.0); NRBC % 0.2 /100WBC (0-0.00); PLATELET COUNT 421 K/uL (150-450); RBC 4.87 M/uL (3.50-5.50)
[2016-06-29 21:22] LABS: WBC 23.1 K/uL (4.0-11.0)
[2016-06-29 21:51] LABS: ALBUMIN 2.1 gm/dL (3.5-5.0); CALCIUM 8.1 mg/dL (8.5-10.5); CREATININE 2.9 mg/dL (0.6-1.3); PHOSPHORUS 4.4 mg/dL (2.5-4.9); POTASSIUM 4.2 mMol/L (3.7-5.1)
[2016-06-29 21:52] LABS: PCO2 37 mmHg (35-45)
[2016-06-29 21:56] LABS: ANION GAP 26.2 (10.0-19.0)
[2016-06-29 22:02] LABS: BICARBONATE 13.8 mmol/L (18.0-23.0); PO2 33 mmHg (80-90)
[2016-06-29 23:31] LABS: PCO2 41 mmHg (35-45)
[2016-06-29 23:32] LABS: BICARBONATE 17.6 mmol/L (18.0-23.0); PO2 31 mmHg (80-90)
[2016-06-30 00:30] LABS: BICARBONATE 18.3 mmol/L (18.0-23.0); PCO2 38 mmHg (35-45)
[2016-06-30 00:31] LABS: PO2 28 mmHg (80-90)
[2016-06-30 01:38] LABS: BICARBONATE 17.8 mmol/L (18.0-23.0); PCO2 37 mmHg (35-45); PO2 33 mmHg (80-90)
[2016-06-30 01:50] LABS: CALCIUM 8.1 mg/dL (8.5-10.5); POTASSIUM 4.2 mMol/L (3.7-5.1)
[2016-06-30 01:52] LABS: ANION GAP 22.2 (10.0-19.0); PHOSPHORUS 1.7 mg/dL (2.5-4.9)
[2016-06-30 04:32] LABS: BICARBONATE 20.4 mmol/L (18.0-23.0); PCO2 37 mmHg (35-45)
[2016-06-30 04:33] LABS: PO2 38 mmHg (80-90)
[2016-06-30 04:44] LABS: HEMATOCRIT 44.2 % (37.0-53.0); HEMOGLOBIN 14.7 g/dL (11.0-16.0); MCH 30.2 pg (27.0-34.0); MCHC 33.3 gm/dL (32.0-36.5); MCV 90.8 fl (83.0-98.0); MPV 9.7 fl (9.4-12.4); PLATELET COUNT 355 K/uL (150-450); RBC 4.87 M/uL (3.50-5.50); RDW-CV 13.8 % (11.9-14.6); WBC 11.9 K/uL (4.0-11.0)
[2016-06-30 04:45] LABS: ANION GAP 18.3 (10.0-19.0); POTASSIUM 4.3 mMol/L (3.7-5.1)
[2016-06-30 04:50] LABS: BICARBONATE 17.2 mmol/L (18.0-23.0); PCO2 30 mmHg (35-45); PO2 89 mmHg (80-90)
--- NOTE | 2016-06-30 04:51 | NUR ---
Patient has been on 60% FIO2 with saturations of 93-96%. End Tidal has been around 23. Breath sounds are clear and diminished in the upper lobes and diminished in the bases. Scant cream was suctioned. Transported to CT x2. Did a mini BAL. Will continue to monitor patient.
[2016-06-30 04:55] LABS: ALBUMIN 1.9 gm/dL (3.5-5.0); PHOSPHORUS 0.9 mg/dL (2.5-4.9)
[2016-06-30 06:06] LABS: ABSOLUTE NEUTROPHIL CT (ANC) 10.4 K/uL (1.4-9.0); BANDED NEUTROPHIL # 4.4 K/uL (0.0-0.1); BANDED NEUTROPHILS % 37 %; LYMPHOCYTE # 1.1 K/uL (0.8-4.0); LYMPHOCYTE % 9 %; MONOCYTE # 0.4 K/uL (0.0-1.0); SEGMENTED NEUTROPHIL % 50 %
--- NOTE | 2016-06-30 07:48 | NUR ---
Significant Event: Pt is sedated with precidex. Pupils are equal and reactive. Pt withdraws in the lower extremites. Spontaneous movment in all four extremities. Not following any commands. Intubated in A/C. Lungs sound clear and dimminished, very diminished in the R) lower. On Levo gtt to keep maps greater than 65. On an insulin gtt, protonix gtt, octriotide gtt. Og to LIS with bloody drainage out. Florez cath in place with good urine output, red tinged. No BM this shift. CT of chest and ABD done this shift. Frequent labs drawn. L) IJ and [address] 2 IO's removed this shift. Follow up: CT of head this AM. Continue to monitor neuro status.
[2016-06-30 08:05] LABS: BILIRUBIN URINE NEGATIVE (NEGATIVE); BLOOD URINE 250 /UL (NEGATIVE); COLOR URINE RED (YELLOW); GLUCOSE URINE 1000 mg/dL (NEGATIVE); KETONE URINE 50 mg/dL (NEGATIVE); LEUKOCYTES URINE 100 /UL (NEGATIVE); NITRITE URINE POSITIVE (NEGATIVE); PROTEIN URINE 100 mg/dL (NEGATIVE); TURBIDITY URINE 3+ (CLEAR); UROBILINOGEN URINE NORMAL (NORMAL)
[2016-06-30 08:15] LABS: RBC URINE PACKED FIELD #/HPF (NEGATIVE)
[2016-06-30 08:16] LABS: AMORPHOUS URINE 1+ (NEGATIVE); BACTERIA URINE MODERATE (NEGATIVE); EPITHELIAL URINE FULL FIELD #/HPF (NEGATIVE); MUCUS URINE 1+ (NEGATIVE); WBC CLUMPS URINE FEW (NEGATIVE); WBC URINE 20-50 #/HPF (NEGATIVE)
[2016-06-30] MEDS ORDERED: AMOXICILLIN500 M1 PO (08:46)
[2016-06-30] MEDS ORDERED: VASOTEC5 MG PO (08:47)
[2016-06-30] MEDS ORDERED: ASPIRIN LO-DOSE81 MG PO (08:47)
[2016-06-30] MEDS ORDERED: GLUCOTROL XL10 MG PO (08:47)
[2016-06-30] MEDS ORDERED: GLUCOPHAGE1000 MG PO (08:47)
[2016-06-30] MEDS ORDERED: GLYXAMBI 25 MG1 EACH PO (08:48)
[2016-06-30 09:36] LABS: PCO2 28 mmHg (35-45); PO2 82 mmHg (80-90)
[2016-06-30 09:44] LABS: HEMATOCRIT 43.4 % (37.0-53.0); HEMOGLOBIN 14.6 g/dL (11.0-16.0); MCH 30.2 pg (27.0-34.0); MCHC 33.6 gm/dL (32.0-36.5); MCV 89.9 fl (83.0-98.0); MPV 9.8 fl (9.4-12.4); PLATELET COUNT 329 K/uL (150-450); RBC 4.83 M/uL (3.50-5.50); RDW-CV 13.9 % (11.9-14.6); WBC 13.4 K/uL (4.0-11.0)
[2016-06-30] MEDS ORDERED: TRADJENTA5 MG PO (09:55)
[2016-06-30 09:59] LABS: ANION GAP 16.6 (10.0-19.0); CALCIUM 7.6 mg/dL (8.5-10.5); POTASSIUM 4.6 mMol/L (3.7-5.1)
[2016-06-30 10:00] LABS: ALBUMIN 1.8 gm/dL (3.5-5.0); PHOSPHORUS 0.9 mg/dL (2.5-4.9)
[2016-06-30 10:24] LABS: LYMPHOCYTE # 0.5 K/uL (0.8-4.0); LYMPHOCYTE % 4 %; MONOCYTE # 0.7 K/uL (0.0-1.0)
[2016-06-30 10:25] LABS: ABSOLUTE NEUTROPHIL CT (ANC) 12.1 K/uL (1.4-9.0); BANDED NEUTROPHIL # 4.8 K/uL (0.0-0.1); BANDED NEUTROPHILS % 36 %; SEGMENTED NEUTROPHIL # 7.2 K/uL (1.4-9.0); SEGMENTED NEUTROPHIL % 54 %
--- NOTE | 2016-06-30 11:19 | NUR ---
WHEN NUTRITION APPROPRIATE REC PPN @ 115 ML/HR TO MEET NEEDS. (NO LIPIDS)
[2016-06-30 14:45] LABS: HEMATOCRIT 43.8 % (37.0-53.0); HEMOGLOBIN 14.8 g/dL (11.0-16.0)
[2016-06-30 15:00] LABS: ANION GAP 14.8 (10.0-19.0); CALCIUM 7.7 mg/dL (8.5-10.5); CREATININE 2.7 mg/dL (0.6-1.3); POTASSIUM 4.8 mMol/L (3.7-5.1)
[2016-06-30 15:01] LABS: ALBUMIN 1.8 gm/dL (3.5-5.0); PHOSPHORUS 1.7 mg/dL (2.5-4.9)
--- NOTE | 2016-06-30 15:58 | NUR ---
No changes to vent settings t/o shift, continued in A/C mode, weaned Fio2 to 45% to maintain sats>90%. Lung sounds slightly coarse uppers in AM, sxn small -moderate thick cream/yellow, increased lung sounds post sxn, clear/diminished t/o. Transported to/from CT with no complications. Will continue to wean as tolerated
[2016-06-30 16:30] LABS: BICARBONATE 19.8 mmol/L (18.0-23.0); PCO2 32 mmHg (35-45)
[2016-06-30 16:31] LABS: PO2 40 mmHg (80-90)
--- NOTE | 2016-06-30 19:42 | NUR ---
Significant Event: PATIENT ON VENTILATOR, NO COUGH REFLEX NOTED, FiO2 DOWN TO 40%, AC MODE. MOISE ORIENTATION PATIENT IS SEDATED, INCONSISTENT WITH COMMANDS TO RUE, MOVES RUE/BLE'S SPONTANEOUSLY. PERRLA, 2MM. GRIMACES TO ABD PALPATION ET STERNAL RUB. TACHY 120-130S. LEVOPHED ET VASO TO KEEP MAPS >60. 1+ BLE EDEMA. TEMPS 100.7-102.7, TYLENOL GIVEN X1. OG TO LIS, MINIMAL COFFEE GROUND OUT. Q1HR ACCUCHECKS, INSULIN DRIP GOING. R) TRIPLE LUMEN PICC PLACED. Follow up:
[2016-06-30 20:26] LABS: HEMATOCRIT 43.4 % (37.0-53.0); HEMOGLOBIN 14.7 g/dL (11.0-16.0)
[2016-06-30 20:54] LABS: ANION GAP 13.7 (10.0-19.0); CALCIUM 7.9 mg/dL (8.5-10.5); CREATININE 2.3 mg/dL (0.6-1.3); POTASSIUM 4.7 mMol/L (3.7-5.1)
[2016-06-30 21:00] LABS: ALBUMIN 1.7 gm/dL (3.5-5.0); PHOSPHORUS 1.7 mg/dL (2.5-4.9)
[2016-07-01 01:22] LABS: ALBUMIN 1.8 gm/dL (3.5-5.0); ANION GAP 14.4 (10.0-19.0); CALCIUM 7.7 mg/dL (8.5-10.5); CREATININE 2.1 mg/dL (0.6-1.3); PHOSPHORUS 1.9 mg/dL (2.5-4.9); POTASSIUM 4.4 mMol/L (3.7-5.1)
[2016-07-01 01:24] LABS: HEMATOCRIT 42.6 % (37.0-53.0); HEMOGLOBIN 14.5 g/dL (11.0-16.0)
--- NOTE | 2016-07-01 04:11 | NUR ---
SIGNIFICANT EVENT: PT CONTINUES TO BE SEDATED ON PRECEDEX UP TO 0.5MCG/KG/MIN, ATTEMPTS TO OPEN EYES AND HAS SLIGHT HAND GRASP BUT UNSURE IF THIS IS TO COMMAND OR NOT. CONTINUES ON LEVOPHED AND VASO. BS LABILE LAST HALF OF SHIFT. FOLLOW UP:
[2016-07-01 04:51] LABS: ALBUMIN 1.6 gm/dL (3.5-5.0); ANION GAP 17.6 (10.0-19.0); POTASSIUM 4.6 mMol/L (3.7-5.1); TOTAL BILIRUBIN 0.4 mg/dL (0.0-1.5); TOTAL PROTEIN 6.1 g/dL (6.0-8.4)
[2016-07-01 05:00] LABS: HEMATOCRIT 41.6 % (37.0-53.0); MCH 30.4 pg (27.0-34.0); MCHC 33.7 gm/dL (32.0-36.5); MCV 90.2 fl (83.0-98.0); MPV 10.3 fl (9.4-12.4); PLATELET COUNT 288 K/uL (150-450); RBC 4.61 M/uL (3.50-5.50); RDW-CV 14.5 % (11.9-14.6)
[2016-07-01 05:03] LABS: WBC 19.8 K/uL (4.0-11.0)
--- NOTE | 2016-07-01 05:04 | NUR ---
Patient currently ventilated. FiO2 weaned down to 40% this shift. O2 sats have been 95-97% throughout the shift. ETCO2 was 23-25 during the shift. Breathsounds clear and diminished in the upper lobes bilaterally and more diminished in the bases. Suctioning scant to small amounts of thick creamy secretions. Will continue to monitor patient.
[2016-07-01 05:40] LABS: ABSOLUTE NEUTROPHIL CT (ANC) 19.2 K/uL (1.4-9.0); BANDED NEUTROPHIL # 7.7 K/uL (0.0-0.1); BANDED NEUTROPHILS % 39 %; MONOCYTE # 0.6 K/uL (0.0-1.0); SEGMENTED NEUTROPHIL # 11.5 K/uL (1.4-9.0); SEGMENTED NEUTROPHIL % 58 %
[2016-07-01 06:38] LABS: LYMPHOCYTE % 0 %
[2016-07-01 11:49] LABS: BICARBONATE 19.4 mmol/L (18.0-23.0); PCO2 26 mmHg (35-45); PO2 348 mmHg (80-90)
[2016-07-01 15:06] LABS: HEMATOCRIT 39.6 % (37.0-53.0); HEMOGLOBIN 13.3 g/dL (11.0-16.0)
--- NOTE | 2016-07-01 17:33 | NUR ---
SIGNIFICANT EVENT: PATIENT SEDATED WITH PRECEDEX DRIP. AT THE BEGINGINGOF THE SHIFT PATIENT ONLY WITHDREW TO PAIN IN L) UPPER EXTREMITY. NOW PATIENT MOVES ALL 4 EXTREMITIES SPONTANEOUSLY. PATIENT WITHDRAWS TO PAIN IN ALL 4 EXTREMITIES. PATIENT FOLLOWS COMMANDS IN BILATERAL UPPER EXTREMITIES. PATIENT NODS YES/NO APPROPRIATELY. ATTEMPTS TO WRITE ON WHITE BOARD. PATIENT NODS NO TO NUMNESS, TINGLING OR PAIN. OPENS EYES SPONTANEOUSLY AND TO VOICE. PUPILS EQUAL AND REACTIVE. PATIENT HAS BEEN IN SINUS TACHY CARDIA, HR 120-140S. ST ELEVATION PRESENT. ECHO AND EKG AT BEDSIDE TODAY. EF 40-45%. PATIENT DOWN TO HEART CATH AT 1110, RETURNED TO ICU AT 1204 WITH INTRA-AORTIC BALLOON PUMP IN R) GROIN. HEPARIN FOR FLUSH. AUTO MODE. 1:1 FREQUENCY. ECG TRIGGER. FULL AUGMENTATION PRESSURE. RADIAL PULSES INTACT. PEDAL PULSES DOPPLERED, INTACT BILATERALLY. NO HEMATOMAS AROUND SITE. HELIUM TUBING CLEAR. PATIENT ON LEVOPHED AT 0.08 MCG/KG/MIN TO KEEP SBP >100 AND AUG PRESSURE >100. WEAN LEVOPHED FIRST. PATIENT ON VASOPRESSIN ALSO AT 0.04 MCG/KG/MIN. HIGHEST TEMP OF 100.1, MD AWARE. R) FEMORAL ART LINE WITH IABP. PATIENT CONTINUES TO REQUIRE VENT SUPPORT, A/C MODE. RR 22, OVER BREATHS AT TIMES, PEEP 5, TV 650. ETCO2 22-25. SPONT/INDUCED COUGH. BOWEL SOUNDS PRESENT, NO BM. CDIFF IF PT HAS BM. OG TUBE TO LIS, 200 ML OF COFFEE GROUND OUTPUT. MARI INTACT, CLEAN, ADEQUATE URINE OUTPUT. OCTREOTIDE AND PROTONIX DRIPS CONTINUED PER MD ORDER. NO NEW SKIN ISSUES NOTED. FOLLOW UP: CONTINUE TO MONITOR
--- NOTE | 2016-07-02 04:28 | NUR ---
No changes made to vent settings this shift. FiO2 currently at 40%, O2 sats 95-97% this shift. ETCO2 was 20-23 throughout the shift. Breathsounds clear and diminished in the upper lobes and diminished in the bases, breathsounds were also slightly coarse occasionally during shift. Suctioning small amounts of thick creamy secretions. ETT suction catheter was changed this shift. Will continue to monitor patient.
--- NOTE | 2016-07-02 04:46 | NUR ---
Significant Event: PRECEDEX AT 0.5MCG/KG/H. FOLLOWS COMMANDS, MOVES ALL EXTREMITITES. HR 90-110'S. LEVO WEANED TO 0.01MCG/KG/MIN AT THIS TIME. IABP CONTINUES IN 1:1. TMAX OF 100.5, DOWN TO 98-99 OVERNIGHT. CONTINUES ON VENT A/C, 40% FIO2. LUNG SOUND CLEAR/DIM. WHITE SPUTUM SUCTIONED. OG TO LIS, 50ML OUT. RARE BOWEL SOUNDS. NO BM OVERNIGHT. 1395ML UOP. DENIES PAIN. BATH COMPLETE. TURNED Q2HR. Follow up: WEAN DRIPS.
[2016-07-02 06:33] LABS: CALCIUM 7.9 mg/dL (8.5-10.5); CREATININE 1.5 mg/dL (0.6-1.3); TOTAL PROTEIN 6.3 g/dL (6.0-8.4)
[2016-07-02 06:35] LABS: ALBUMIN 1.6 gm/dL (3.5-5.0); ANION GAP 16.2 (10.0-19.0); POTASSIUM 5.2 mMol/L (3.7-5.1); TOTAL BILIRUBIN 0.8 mg/dL (0.0-1.5)
[2016-07-02 06:39] LABS: BASOPHIL % 0.1 %; HEMATOCRIT 37.6 % (37.0-53.0); HEMOGLOBIN 12.3 g/dL (11.0-16.0); IMMATURE GRANULOCYTE # 0.4 K/uL (0.0-0.3); LYMPHOCYTE # 1.1 K/uL (0.8-4.0); LYMPHOCYTE % 5.1 %; MCH 30.1 pg (27.0-34.0); MCHC 32.7 gm/dL (32.0-36.5); MCV 92.2 fl (83.0-98.0); MONOCYTE # 0.8 K/uL (0.0-1.0); MONOCYTE % 3.9 %; MPV 10.5 fl (9.4-12.4); NEUTROPHIL # (ANC) 19.3 K/uL (1.4-9.0); NEUTROPHIL % 88.9 %; NRBC % 0 /100WBC (0-0.00); PLATELET COUNT 274 K/uL (150-450); RBC 4.08 M/uL (3.50-5.50); RDW-CV 14.7 % (11.9-14.6)
[2016-07-02 06:42] LABS: WBC 21.8 K/uL (4.0-11.0)
[2016-07-02 13:34] LABS: ANION GAP 14.7 (10.0-19.0); CALCIUM 8.1 mg/dL (8.5-10.5); CREATININE 1.6 mg/dL (0.6-1.3)
[2016-07-02 13:36] LABS: POTASSIUM 4.7 mMol/L (3.7-5.1)
--- NOTE | 2016-07-02 15:43 | NUR ---
No changes to vent settings t/o shift, continued on 40% Fio2, maintained sat>90%. Lung sounds occ slightly coarse uppers, diminished bases, sxn small cream with strong cough from Pt. Increased lung sounds post sxn. Will continue to monitor and wean as ordered
--- NOTE | 2016-07-02 17:03 | NUR ---
SIGNIFICCANT EVENT: PATIENT SEDATED WITH 0.5MCG/KG/H OF PRECEDEX. WITH SEDATION, PATIENT OPENS EYES SPONTANEOUSLY AND TO VOICE. PUPILS EQUAL AND REACTIVE. PATIENT NODS YES/ NO APPROPRIATELY. PATIENT NODS NO TO NUMBNESS, TINGLING, OR PAIN. PATIENT MOVES ALL 4 EXTREMITIES SPONTANEOUSLY AND TO COMMANDS. GENERALIZED WEAKNESS, EQUAL STRENGTH THROUGHOUT. BILAT WRIST RESTRAINTS R/T PATIENT MOVING ARMS TOWARDS AND GRABBING ET TUBE IN SPITE OF SAFETY EDUCATION. R) LOWER EXTREMITY FLAT AND STRAIGHT AT ALL TIMES R/T IABP. PATIENT HAS BEEN IN SINUS RHYTHM, TACHY INTO 110S AT TIMES. PULSES PALPABLE THROUGHOUT. PEDAL PULSES DOPPLERED HOURLY, NO COMPLICATIONS, INTACT BILATERALLY. PATIENT WEANED OFF LEVOPHED, VASOPRESSIN NOW AT 0.03 UNITS/MIN. TO KEEP AUGMENTATION PRESSURE >100. GEENRALIZED EDEMA PRESENT. IABP IN R) GROIN, AUTO MODE, 1:1 FREQUENCY, 100% AUGMENTATION, ECG TRIGGER. NO HEMATOMAS AROUND IABP SITE, NO BLOOD IN TUBING. RAPID GAS LOSS ALARM X3 THIS SHIFT, NO KINKS IN TUBING, NO BLOOD, NO LOOSE CONNECTIONS, NO CHANGES IN VITAL, SPOKE TO NON DESTRUCTIVE EVALUATION SPECIALIST=JESUS- STATED TO CONTINUE TO MONITOR, NO NEED FOR INTERVENTION. R) GROIN ART LINE, SBP 100-120S, MAP>65. PATIETN CONTINUES TO REQUIRE VENT SUPPORT, OCCASIONNALY OVER BREATHS VENT SETTINGS, A/C MODE RR 22, TV 650, PEEP 5, FIO2 40%. ETCO2 20S. BOWEL SOUNDS RARE, NO BM. OG TO SUCTION, 150 ML OUTPUT. MARI INTACT, ADEQUATE URINE OUTPUT. FOLLOW UP: CONTINUE TO MONITOR, WEAN OFF PRESSORS
[2016-07-03 04:03] LABS: ANION GAP 14.3 (10.0-19.0); CREATININE 1.5 mg/dL (0.6-1.3); POTASSIUM 4.3 mMol/L (3.7-5.1); TOTAL PROTEIN 6.1 g/dL (6.0-8.4)
[2016-07-03 04:05] LABS: ALBUMIN 1.4 gm/dL (3.5-5.0); TOTAL BILIRUBIN 1.2 mg/dL (0.0-1.5)
[2016-07-03 04:50] LABS: BICARBONATE 17.5 mmol/L (18.0-23.0); PCO2 23 mmHg (35-45)
[2016-07-03 04:52] LABS: PO2 98 mmHg (80-90)
[2016-07-03 04:58] LABS: BASOPHIL % 0.2 %; EOSINOPHIL % 0.2 %; HEMATOCRIT 39.3 % (37.0-53.0); HEMOGLOBIN 12.7 g/dL (11.0-16.0); IMMATURE GRANULOCYTE # 0.6 K/uL (0.0-0.3); IMMATURE GRANULOCYTE % 2.8 %; LYMPHOCYTE # 1.4 K/uL (0.8-4.0); LYMPHOCYTE % 7.1 %; MCH 30.1 pg (27.0-34.0); MCHC 32.3 gm/dL (32.0-36.5); MCV 93.1 fl (83.0-98.0); MONOCYTE # 1.2 K/uL (0.0-1.0); MONOCYTE % 6.2 %; MPV 10.5 fl (9.4-12.4); NEUTROPHIL # (ANC) 16.7 K/uL (1.4-9.0); NEUTROPHIL % 83.5 %; NRBC % 0.1 /100WBC (0-0.00); PLATELET COUNT 250 K/uL (150-450); RBC 4.22 M/uL (3.50-5.50); RDW-CV 14.9 % (11.9-14.6)
--- NOTE | 2016-07-03 05:21 | NUR ---
No vent changes made this shift, continues on 40% FiO2. EtCO2 19-20. BrSs mostly clear and dim, suctioned small amounts of thick, cream secretions from ETT. On precedex, awakens and follows commands without difficulty. SBT today, wean from ventilator if tolerated.
--- NOTE | 2016-07-03 05:32 | NUR ---
Significant Event: CONTINUES ON PRECEDEX AT 0.5MCG/KG/HR. FOLLOWS COMMANDS, WAKES EASILY. SR, HR 70-90'S. INCREASED ECTOPY TOWARD AM, PAC'S, PVC'S. BP LABILE OVERNIGHT, ON/OFF LEVO. BP DECREASES WITH COUGHING, SUCTIONING, TURNS. NOTIFIED DR. COLLAZO OF ECTOPY AND BP. CHECKED K, MG. WERE 4.3 AND 2.3 RESPECTIVELY. IABP CONTINUES 1:1. AUGMENTED PRESSURES 100-130'S. CONTINUES ON VENT A/C, 40% FIO2. ETCO2 19-22. LUNG SOUNDS CLEAR/DIM. 50ML OUT OF OG. RARE BOWEL SOUNDS. MARGINAL UOP. DENIES PAIN. BATH COMPLETE. Follow up: CONTINUE TO MONITOR.
--- NOTE | 2016-07-03 08:21 | NUR ---
A - NUTRITION F/U. ON VENT. GLU 162, BUN/WATER RESOURCE PROJECT MANAGER 48/1.5, ALB 1.4, WBC 20.0. PT W/ 1-2+ EDEMA. RARE BS. EST NEEDS: 4988-5847 KCALS, 75 GM PROTEIN (CALCULATED FOR RENAL DYSFUNCTION). D - AT RISK W/ INADEQUATE NUTRIENT INTAKE R/T NPO STATUS. I - GOAL: TO MEET NEEDS VIA EN. M/E - REC OSMOLITE 1.5 TO RUN AT GOAL RATE OF 50 ML/HR = 1800 KCALS, 75 GM PROTEIN, 914 ML FREE H2O. WILL F/U IN 2-4 DAYS.
--- NOTE | 2016-07-03 15:09 | NUR ---
Pt continued on ventilator support t/o shift. SBT completed this AM for 2hrs. CPAP 5, PS 10 for SBT, Pt tolerated well. Balloon pump still in. Will continue on vent while on pump. Lung sounds occ slightly coarse, sxn small cream thick, clear/diminished post sxn. Will continue to monitor and will do SBT in AM
--- NOTE | 2016-07-03 17:12 | NUR ---
Significant Event: Patient is on 0.3mcg/kg/min of Precedex. Patient follows commands, opens eyes, will move spontaneously at times, pupils are equal and reactive. SBP have been 90's-140's, MAP's 70's-low 100's, HR 70's-80's. IABP is in 1:2, AUTO, ECG, 100% Augmentation. Augmentations pressures have been 90's-140's. Levo was shut off at 1358, Vaso was shut off at 1630. Vent is in AC Rate of 15, TV of 600, FiO2 of 40%, PEEP of 5. O2 sats have been 97-100%, EtCo2 have been 18-22. Lung sounds have been slightly coarse to clear and diminished. Vikki had 645ml out. Start Osmolite 1.5 at 20ml hr, currently running at 35ml/hr. Follow up:
--- NOTE | 2016-07-04 04:18 | NUR ---
No vent changes made this shift. Continues on FiO2 of 40%, SpO2 mid 90s. EtCO2 27-29 this shift. BrSS slightly coarse at times that clear with suctioning of small amounts of white, thick secretions from ETT. On precedex, pressor restarted last night. Plan to wean IABP when able and then ventilator.
[2016-07-04 04:32] LABS: PO2 95 mmHg (80-90)
[2016-07-04 04:33] LABS: BICARBONATE 22.6 mmol/L (18.0-23.0); PCO2 34 mmHg (35-45)
--- NOTE | 2016-07-04 05:20 | NUR ---
Significant Event: Pt is sedated on precedex. Awakens easily. Nods appropriatly to questions. Pupils are equal and reactive. Moves all extremities spontaneously and to command. Pt intubated in A/C. Thick secretions out of the ET tube. Large amounts of oral secretions. IABP was changed back to a 1:1 rate due to low augmentation pressures. Levo gtt was restarted. R) groin site is soft and has no drainage, Dressing changed this shift. Tube feed running at goal with minimal residuals. Florez in place with large urine output. No Bm this shift. L) IJ, R) PICC, and R) PIV in place. Follow up: Wean Vent. Wean pressors.
[2016-07-04 09:49] LABS: CALCIUM 7.9 mg/dL (8.5-10.5); CREATININE 1.4 mg/dL (0.6-1.3); PHOSPHORUS 2.2 mg/dL (2.5-4.9)
[2016-07-04 09:59] LABS: ALBUMIN 1.5 gm/dL (3.5-5.0); ANION GAP 11.3 (10.0-19.0); MAGNESIUM 2.3 mg/dL (1.8-2.6)
[2016-07-04 10:00] LABS: POTASSIUM 4.3 mMol/L (3.7-5.1)
--- NOTE | 2016-07-04 13:53 | NUR ---
Diabetes consult: Received consult due to patient's A1C being 10.4%. Patient remains vented. Will assess educational needs once the patient is more stable.
--- NOTE | 2016-07-04 17:17 | NUR ---
D: UNRESPONSIVE I: VENT R: PT REMAINED ON 40% FIO2, SXNED OUT SMALL THICK WHITE SECRETIONS, PLACED PT INTO CPAP/PS 07/10 @ 10:36, PT TOLERATED WELL T/O DAY, VT'S 400-500, RR IN LOW 20'S, NIF -33 P: WAITING TO SEE IF THEY WANT TO EXTUBATE BEFORE BALLOON PUMP IS PULLED
--- NOTE | 2016-07-04 17:32 | NUR ---
Significant Event: Patient is on 0.2mcg/kg/hr of Precedex. Patient follows commands, moves extremitites spontaneously, opens eyes spontaneously. Pupils are equal and reactive. SBP have been 80's-130's, MAP's 70's-90's, HR 60's-70's. Levo is running at 0.01mcg/kg/min. IABP is in Auto, ECG, 1:1, 100% Augmentation. Augmentation pressures have been 90's-130's. Gave 25% 100ml Albumin X2, 3gm of Calcium Gluconate, 15mmol of KPhos. Vent is in A/C and CPAP with Fio2 of 40%, TV of 600, RR of 15, PEEP of 5. EtCo2 have been upper 20's-low 30's. Lung sounds have been clear and diminished to slightly coarse. O2 sats have been 95-97%. Gave 20mg Lasix IVP X1. Florez had 2890. Follow up:
[2016-07-05 03:22] LABS: ANION GAP 11.6 (10.0-19.0); BLOOD UREA NITROGEN 33 mg/dL (6-24); CALCIUM 7.6 mg/dL (8.5-10.5); CHLORIDE 114 mMol/L (96-110); CO2 23 mMol/L (22-32); MAGNESIUM 1.9 mg/dL (1.8-2.6); PHOSPHORUS 2.4 mg/dL (2.5-4.9); POTASSIUM 3.6 mMol/L (3.7-5.1); SODIUM 145 mMol/L (135-145)
[2016-07-05 03:23] LABS: ESTIMATED GFR (MDRD EQUATION) > 60
--- NOTE | 2016-07-05 03:36 | NUR ---
Patient was in CPAP from the start of shift until 239. Switched him back into AC at this time due to low tidal volumes of approximately 300-350 when he had been doing closer to 500 and a respiratory rate in the high 20's. Patient looked, and stated that he was getting tired at that time. Will leave in CPAP rest of shift so patient can rest. Breath sounds are mostly clear, to clear and diminished. Suctioning moderate amounts of thick white. End Tidal has been in the mid 20's to mid 30's. Saturation has been 92-96% on 40%. Will continue to monitor. Possibly extubate today.
[2016-07-05 03:41] LABS: HEMATOCRIT 37.2 % (37.0-53.0); HEMOGLOBIN 11.8 g/dL (11.0-16.0); MCH 30.3 pg (27.0-34.0); MCHC 31.7 gm/dL (32.0-36.5); MCV 95.6 fl (83.0-98.0); MPV 10.1 fl (9.4-12.4); RBC 3.89 M/uL (3.50-5.50); RDW-CV 14.6 % (11.9-14.6); WBC 14.2 K/uL (4.0-11.0)
[2016-07-05 03:51] LABS: PLATELET COUNT 187 K/uL (150-450)
[2016-07-05 05:08] LABS: ABSOLUTE NEUTROPHIL CT (ANC) 10.4 K/uL (1.4-9.0); BANDED NEUTROPHIL # 4.1 K/uL (0.0-0.1); BANDED NEUTROPHILS % 29 %; LYMPHOCYTE # 1.4 K/uL (0.8-4.0); LYMPHOCYTE % 10 %; MONOCYTE # 1.6 K/uL (0.0-1.0); SEGMENTED NEUTROPHIL # 6.3 K/uL (1.4-9.0); SEGMENTED NEUTROPHIL % 44 %
[2016-07-05 05:08] LABS: BICARBONATE 26.5 mmol/L (18.0-23.0); PCO2 39 mmHg (35-45); PO2 67 mmHg (80-90)
--- NOTE | 2016-07-05 07:07 | NUR ---
Significant Event: Pt easily awakens, currently lightly sedated on Precedex. Follows commands x4 extremities and spontaneous movement x4 extremities. IABP continued 1:1 through the night without complications. Turned down to 1:2 this am per POKER MACHINE ATTENDANT orders. Levophed weaned off at 0200. Pt in CPAP mode on ventilator from 10 am yesterday until 0300 am this am. Resting while in a rate for now. Adequate uop. Follow up: REplace K this am Possibly wean IABP more, extubate.
--- NOTE | 2016-07-05 11:43 | NUR ---
A - NUT F/U. VENT. SEDATED ON PRECEDEX. POSSIBLE EXTUBATION TODAY. TF ON HOLD SINCE YESTERDAY FOR EXTUBATION. IABP. 1+ EDEMA. LABS: ACCUCHECK WNL->200, K+ 3.6, BUN/CR 33/1.0, ALB 1.5, PHOS 2.4, WBC 14.2. MEDS: PROTONIX, MAXIPIME, SSI, LEVEMIR. DIET: OSMOLITE 1.5 @ 50 ML/HR VIA OG - ON HOLD. PROVIDES 1800 KCAL, 75 G PRO, 914 ML FREE WATER. NEEDS: 8160-4332 KCAL, 75 G PRO D - INADEQUATE NUTRIENT INTAKE R/T DIFFICULTY SWALLOWING R/T VENT SUPPORT, TF ON HOLD x 24 HRS. I - GOAL FOR NUTRITION INITIATION W/IN 48 HRS. IF UNABLE TO EXTUBATE REC RESTARTING OSMOLITE 1.5 @ 50 ML/HR TO MEET PT NEEDS. M/E - WILL MONITOR POC, TF F/U IN 2-3 DAYS.
--- NOTE | 2016-07-05 17:31 | NUR ---
D: FOUND UNRESPONSIVE I: BIPAP R: PT WAS EXTUBATED @ 13:30 TO A 4 LPM NC, INCREASED WOB & O2 DEMANDS KEPT GOING UP, PLACED ON BIPAP 12/6 @ 14:30 WHERE I WEANED FIO2 TO 40%, BS BECAME COARSE AFTER EXTUBATION, BALLOON PUMP WAS PULLED TODAY WELL, PT WAS STARTED ON LASIX, CHEST XRAY DID IMPROVE AFTER EXTUBATION P: CONT.
--- NOTE | 2016-07-05 17:46 | NUR ---
Significant Event: Patient is Alert. Follows all commands. IABP discontinued at 1548. Femstop currently at 65mmhg. Right groin soft, no hematoma, bleeding, or oozing at site. Patient went into SVT, with HR 140s-150s, patient sustained for couple of minutes then returned to 110-115. Marilyn Sanchez notified, new order for PRN lopressor. Cuff pressures have been 120s to 130s, MAPs 70s-90s. Afibrile. Extubated at 1330 to 4L NC, patient was unable to keep up with secreations, currently on BiPAP / at 40%. Lungs are course throughout. NPO. Florez patent. Lasix given post extuabtion, patient responded well, with intial 770ml uop. Hypoactive bowel sounds, no bm. Replaced 40meq iv KCL. And replace 15mmol K phos. Patient complains of pain in right shoulder, PRN tylenol given x1, and ice placed to shoulder. Pulses dopplable in bilateral lower extremetries. Accu checks Q4hrs, did not treat. Held AM dose of levemir. Follow up:Continue to titrate femstop off, monitor right groin. Monitor respiratory status.
[2016-07-06 06:06] LABS: CALCIUM 8.5 mg/dL (8.5-10.5); CREATININE 1.4 mg/dL (0.6-1.3)
[2016-07-06 06:09] LABS: HEMATOCRIT 41.8 % (37.0-53.0); MCH 30.4 pg (27.0-34.0); MCHC 31.1 gm/dL (32.0-36.5); MCV 97.9 fl (83.0-98.0); MPV 9.9 fl (9.4-12.4); RBC 4.27 M/uL (3.50-5.50); RDW-CV 14.9 % (11.9-14.6)
[2016-07-06 06:14] LABS: PLATELET COUNT 271 K/uL (150-450); WBC 19.2 K/uL (4.0-11.0)
[2016-07-06 07:08] LABS: LYMPHOCYTE # 1.2 K/uL (0.8-4.0); LYMPHOCYTE % 6 %; MONOCYTE # 2.3 K/uL (0.0-1.0); SEGMENTED NEUTROPHIL # 13.4 K/uL (1.4-9.0); SEGMENTED NEUTROPHIL % 70 %
[2016-07-06 07:09] LABS: ABSOLUTE NEUTROPHIL CT (ANC) 15.6 K/uL (1.4-9.0); BANDED NEUTROPHIL # 2.1 K/uL (0.0-0.1); BANDED NEUTROPHILS % 11 %
--- NOTE | 2016-07-06 16:51 | NUR ---
Significant Event:Oriented x 3, difficulty moving tongue any direction, slight left facial droop, with drooling, decreased sensation to L) face. Moves all extremeties to command, R) shoulder is contracted, reported pain and relieved with ice. Bursts of HR 150, then after coughing 110's. No PRN's given. Taken off Bipap at 0700 and changed to NC 4L, O2 sats OK, then changed to 40% on Hi Lo for the rest of the day. NPO. Aspirates everything, speech therapy here to eval. NO BM today. Attempted to stand at bedside with 1 assist, gait belt and walker, unable to stand completely. Did hold self in sitting position. Extremely weak. Lifted to recliner. Uses yankauer to suction self of thicky creamy sputum. Family updated at the bedside. Blood culture from R) PICC sent. ABX changed. Started on D5W. New order for PT/OT/SP today.
[2016-07-06 18:24] LABS: ANION GAP 15.9 (10.0-19.0); POTASSIUM 3.9 mEq/L (3.7-5.1)
[2016-07-06 18:25] LABS: ALBUMIN 2.1 gm/dL (3.5-5.0); CALCIUM 8.9 mg/dL (8.5-10.5); CREATININE 1.5 mg/dL (0.6-1.3); PHOSPHORUS 1.9 mg/dL (2.5-4.9)
--- NOTE | 2016-07-07 04:04 | NUR ---
Significant Event: Patient A/Ox3. FOLLOWS COMMANDS. CALM AND COOPERATIVE WITH CARES. SEE NEURO ASSESSMENT. HR'S 110'S-130'S. 2 EVENTS OF SVT HR'S 150'S-170'S, RETURNED TO 110'S AFTER A FEW SECONDS. MAPS GREATER THAN 70. SBP 100'S-140'S. HIFLOW 40% FIO2 UNTIL 0330, O2 SATURATIONS 88% & PATIENT HAD INCREASED WOB, PLACED ON BIPAP AT 40%. NO BM. MARI TO DD WITH ADEQ UOP. AFEBRILE. NO PRN'S GIVEN. Follow up:
--- NOTE | 2016-07-07 04:12 | NUR ---
Significant Event: A/OX3. FOLLOWS COMMANDS. CALM AND COOPERATIVE WITH CARES. SEE NEURO ASSESSMENT. HR'S 110'S-130'S, 2 SHORT NOT SUSTAINED RUNS OF SVT. MAPS GREATER THAN 70. SBP 100'S-140. AFEBRILE. HIFLOW O2 AT 40% UNTIL 0330, PATINET HAD INCREASED WOB, O2 SATS 88%. PLACED ON BIPAP AT 40%. O2 SATS GREATER THAN 93% NO BM. MARI TO DD WITH ADEQ UOP. NO PRN'S GIVEN. Follow up:
[2016-07-07 05:15] LABS: BASOPHIL # 0.1 K/uL (0.0-0.2); BASOPHIL % 0.4 %; EOSINOPHIL # 0.2 K/uL (0.0-0.5); EOSINOPHIL % 0.7 %; HEMATOCRIT 42.4 % (37.0-53.0); HEMOGLOBIN 13.1 g/dL (11.0-16.0); IMMATURE GRANULOCYTE # 0.9 K/uL (0.0-0.3); LYMPHOCYTE # 1.1 K/uL (0.8-4.0); LYMPHOCYTE % 5.1 %; MCH 30.1 pg (27.0-34.0); MCHC 30.9 gm/dL (32.0-36.5); MCV 97.5 fl (83.0-98.0); MONOCYTE # 2.5 K/uL (0.0-1.0); MPV 9.6 fl (9.4-12.4); NEUTROPHIL # (ANC) 17.6 K/uL (1.4-9.0); NEUTROPHIL % 78.8 %; NRBC % 0.2 /100WBC (0-0.00); PLATELET COUNT 353 K/uL (150-450); RBC 4.35 M/uL (3.50-5.50); RDW-CV 14.8 % (11.9-14.6); WBC 22.3 K/uL (4.0-11.0)
[2016-07-07 05:32] LABS: CALCIUM 8.7 mg/dL (8.5-10.5); CREATININE 1.4 mg/dL (0.6-1.3); PHOSPHORUS 2.1 mg/dL (2.5-4.9)
--- NOTE | 2016-07-07 10:57 | NUR ---
A - CONSULT RECEIVED TO RESTART TF. EXTUBATED TO BIPAP. FOLLOWS COMMANDS. DOBHOFF PLACED. 1-2+ EDEMA. 06/29 WT 282#, 07/06 283#, 07/07 274# - DOWN 9# x 1 DAY - ?ACCURATE. CHOI CONSISTENTLY MOVE TONGUE. GARMENT FORM ASSEMBLER WORKING W/ PT. LABS: ACCUCEHCK WNL-REAS, NA 153, GLU 216, BUN/CR 26/1.4, ALB 2.1, PHOS 2.1, WBC 22.3. MEDS: LEVEMIR, ZYVOX, ZOSYN, D5W, SSI. DIET: NPO. NEEDS: 8334-0336 KCAL, 75 G PRO D - DIFFICULTY SWALLOWING R/T RESPIRATORY STATUS, NEUROMUSCULAR DYSFUNCTION AEB BIPAP, POOR TONGUE COORDINATION, NEED FOR ENTERAL NUTRITION. I - GOAL FOR NUTRITION RE-INITIATION W/IN 24 -48 HRS. REC OSMOLITE 1.5 @ 50 ML/HR W/ 150 ML WATER Q4HRS TO PROVIDE 1800 KCAL, 75 G PRO, 914 ML FREE WATER (+FLUSH) M/E - WILL MONITOR POC, TF F/U IN 2-3 DAYS.
[2016-07-07 11:00] LABS: BILIRUBIN URINE NEGATIVE (NEGATIVE); BLOOD URINE 250 /UL (NEGATIVE); COLOR URINE YELLOW (YELLOW); GLUCOSE URINE 1000 mg/dL (NEGATIVE); KETONE URINE 15 mg/dL (NEGATIVE); LEUKOCYTES URINE NEGATIVE /UL (NEGATIVE); NITRITE URINE NEGATIVE (NEGATIVE); PROTEIN URINE 30 mg/dL (NEGATIVE); SPEC GRAVITY URINE 1.015 (1.003-1.035); TURBIDITY URINE 2+ (CLEAR); UROBILINOGEN URINE NORMAL (NORMAL)
[2016-07-07 11:07] LABS: AMORPHOUS URINE 1+ (NEGATIVE); BACTERIA URINE NEGATIVE (NEGATIVE); EPITHELIAL URINE NEGATIVE #/HPF (NEGATIVE); RBC URINE FULL FIELD #/HPF (NEGATIVE); WBC URINE RARE #/HPF (NEGATIVE)
--- NOTE | 2016-07-07 17:46 | NUR ---
Significant Event:A/O X 3. Slight left facial droop, scant amount of drool, left cheeck has decreased sensation, able to move tongue better today, some words are audible, mouths words that are understandable. R) arm is rigid. Brice Upper extremities, have decreased movement. Physical therapy stood patient today and was stronger, almost upright with walker and 2-3 assist. Lifted to chair and then back to bed. Remained on Bipap @ 40% all day. xray of right shoulder, ? source of infection?, brice venous doppler study, completed and was negative for DVT. Renal US completed. Dobhoff placed and free water flushes started, with tube feeding, last increased at 1500 to 35 ml/h. Dobhoff in R) nare at 75 cm. NO BM today. IVF rate increased for serum sodium of 153. New consults for Nephrology and Orthopedics. Dr Stroud has been here, Dr Jordan has not seen patient yet. Started on Metoprolol for HR in 150's at times. Started on SBQ Heparin and Protonix changed to Prevacid slurry. Follow up:Nikki consult. Lower serum sodium. BID serum sodium labs, next at 2100.
[2016-07-07 19:53] LABS: ANION GAP 12.8 (10.0-19.0); CALCIUM 8.7 mg/dL (8.5-10.5); CREATININE 1.5 mg/dL (0.6-1.3); POTASSIUM 3.8 mEq/L (3.7-5.1); TOTAL BILIRUBIN 0.5 mg/dL (0.0-1.5); TOTAL PROTEIN 7.1 g/dL (6.0-8.4)
[2016-07-08 05:00] LABS: CALCIUM 8.2 mg/dL (8.5-10.5); CREATININE 1.3 mg/dL (0.6-1.3); MAGNESIUM 1.8 mg/dL (1.8-2.6); PHOSPHORUS 2.1 mg/dL (2.5-4.9); POTASSIUM 3.6 mMol/L (3.7-5.1)
[2016-07-08 05:04] LABS: ANION GAP 11.6 (10.0-19.0)
[2016-07-08 05:07] LABS: BASOPHIL % 0.2 %; EOSINOPHIL # 0.2 K/uL (0.0-0.5); EOSINOPHIL % 1.3 %; HEMATOCRIT 41.2 % (37.0-53.0); HEMOGLOBIN 12.8 g/dL (11.0-16.0); IMMATURE GRANULOCYTE # 0.7 K/uL (0.0-0.3); IMMATURE GRANULOCYTE % 4.2 %; LYMPHOCYTE # 1.3 K/uL (0.8-4.0); LYMPHOCYTE % 7.4 %; MCH 30.3 pg (27.0-34.0); MCHC 31.1 gm/dL (32.0-36.5); MCV 97.4 fl (83.0-98.0); MONOCYTE # 1.2 K/uL (0.0-1.0); MONOCYTE % 7.3 %; NEUTROPHIL # (ANC) 13.5 K/uL (1.4-9.0); NEUTROPHIL % 79.6 %; NRBC % 0.1 /100WBC (0-0.00); PLATELET COUNT 321 K/uL (150-450); RBC 4.23 M/uL (3.50-5.50)
--- NOTE | 2016-07-08 05:21 | NUR ---
Nods appropriatley to orientation questions. Continues SR-ST. Continues on Bipap at 40% Fio2 with 02 sats mid to low 90s. Tubefeed at goal of 50ml/hr. Follow up: Continue with PT/OT. Continue to wean Bipap.
--- NOTE | 2016-07-08 13:09 | NUR ---
Significant Event: PT alert, follows commands, says few words. VSS, on hi-flow nasal cannula at 60%. PICC patent to R)upper arm. Dobhoff patent to R)nare, TF running at goal of 50ml/hr, 250ml flush Q4H. BS high 305 at 0700 and 1100, 12 units given x2. PT up to chair with lift. Moderate BM x1 this shift. Florez patent, good output. Follow up:
--- NOTE | 2016-07-08 16:32 | NUR ---
Significant Event: Patient is A&O X3, follows all commands, pupils are equal and reactive. Speech is slow and voice is a little raspy. SBP have been low 100's-140's, MAP's 70's-90's, HR 90's-low 100's. Patient is on 60& Hi-Flow nasal canula. O2 sats have been mid 90's. Lung sounds are clear and diminished in the uppers and diminished in the bases. Dophoff is in right nare with Osmolite 1.5 running at 50ml/hr which is goal. 250ml water flushes Q4H. 1500 Residual was 30ml. Florez had 2895ml out. Patient had moderate BM X1 Follow up:
--- NOTE | 2016-07-09 03:38 | NUR ---
Significant Event: A/Ox3. Follows commands. Speech slow. Some n/t to L) cheek. VSS. High flow 65% Fi02 during day, Bipap 40% at night. Lungs clear and diminished. R) dobhoff patent, infusing TF at goal of 50 ml/hr with no residuals. Active bowel sounds. No BM. Florez drained 2910 ml yellow urine. Denies pain. Follow up: Wean Fi02
[2016-07-09 05:26] LABS: BASOPHIL % 0.2 %; EOSINOPHIL # 0.3 K/uL (0.0-0.5); EOSINOPHIL % 1.4 %; HEMATOCRIT 43.6 % (37.0-53.0); HEMOGLOBIN 13.7 g/dL (11.0-16.0); IMMATURE GRANULOCYTE # 0.6 K/uL (0.0-0.3); IMMATURE GRANULOCYTE % 3.2 %; LYMPHOCYTE # 1.3 K/uL (0.8-4.0); LYMPHOCYTE % 6.8 %; MCH 30.2 pg (27.0-34.0); MCHC 31.4 gm/dL (32.0-36.5); MCV 96.2 fl (83.0-98.0); MONOCYTE % 5.4 %; MPV 10.1 fl (9.4-12.4); NEUTROPHIL # (ANC) 15.7 K/uL (1.4-9.0); NRBC % 0.1 /100WBC (0-0.00); PLATELET COUNT 363 K/uL (150-450); RBC 4.53 M/uL (3.50-5.50); RDW-CV 14.6 % (11.9-14.6)
[2016-07-09 05:27] LABS: WBC 18.9 K/uL (4.0-11.0)
[2016-07-09 05:35] LABS: MAGNESIUM 1.9 mg/dL (1.8-2.6); PHOSPHORUS 1.8 mg/dL (2.5-4.9)
[2016-07-09 12:10] LABS: BLOOD UREA NITROGEN 18 mg/dL (6-24); CALCIUM 8.2 mg/dL (8.5-10.5); CHLORIDE 104 mMol/L (96-110); CO2 33 mMol/L (22-32); ESTIMATED GFR (MDRD EQUATION) > 60; SODIUM 145 mMol/L (135-145)
--- NOTE | 2016-07-09 17:42 | NUR ---
Significant Event: TOOK OVER PT CARES AT 1300. PT IS ALERT AND ORIENTED. SLOW TO RESPOND TO QUESTIONS. MOVES ALL EXTREMITIES. PERRLA. VOICE IS HOARSE/RASPY. TACHYCARDIA WITH RATES IN THE LOW 100'S. 1-2+ GENERALIZED EDEMA. HI-FLOW OXYGEN AT 40% O2 SATS HAVE BEEN IN THE LOW 90'S. DOES HAVE A WET, NON-PRODUCTIVE COUGH. VQ SCAN DONE THIS AFTERNOON; PT TOLERATED FAIRLY WELL. DOBHOFF TO R)NARE INTACT; TUBE FEEDING INFUSING OSMOLITE 1.5 AT 50 ML/HR (WHICH IS GOAL RATE). NO RESIDUALS NOTED THIS AFTERNOON. 400 ML WATER FLUSHES Q4H IF PT IS TOLERATING FEEDING AND RESIDUALS ARE NOT HIGH. MRAI PATENT, DRAINING YELLOW URINE. INCONTINENT OF XL LOOSE BM TODAY. BUTTOCKS REDDENED-ALOE VESTA CREAM APPLIED. PICC LINE TO R)UPPER ARM INTACT; CURRENTLY INFUSING K-PHOS X1; SERUM PHOS NEEDS TO BE DRAWN 1 HOUR AFTER INFUSION IS COMPLETE-IF <2.5, ORDER TO GIVE AN ADDITIONAL IV DOSE (ORDER IS IN EMAR). BILATERAL CALF PUMPS ON. 2-ASSIST/FULL LIFT. Follow up: CONTINUE TO MONITOR; WEAN O2
[2016-07-10 05:06] LABS: BLOOD UREA NITROGEN 18 mg/dL (6-24); CALCIUM 8.1 mg/dL (8.5-10.5); CHLORIDE 101 mMol/L (96-110); CREATININE 0.9 mg/dL (0.6-1.3); ESTIMATED GFR (MDRD EQUATION) > 60; PHOSPHORUS 2.7 mg/dL (2.5-4.9); SODIUM 143 mMol/L (135-145)
[2016-07-10 05:07] LABS: BASOPHIL # 0.1 K/uL (0.0-0.2); BASOPHIL % 0.3 %; CO2 36 mMol/L (22-32); EOSINOPHIL # 0.2 K/uL (0.0-0.5); EOSINOPHIL % 1.5 %; HEMATOCRIT 42.3 % (37.0-53.0); HEMOGLOBIN 13.1 g/dL (11.0-16.0); IMMATURE GRANULOCYTE # 0.4 K/uL (0.0-0.3); IMMATURE GRANULOCYTE % 2.6 %; LYMPHOCYTE # 1.3 K/uL (0.8-4.0); LYMPHOCYTE % 8.3 %; MAGNESIUM 1.9 mg/dL (1.8-2.6); MCH 30.2 pg (27.0-34.0); MCV 97.5 fl (83.0-98.0); MONOCYTE # 0.9 K/uL (0.0-1.0); MONOCYTE % 5.7 %; MPV 10.1 fl (9.4-12.4); NEUTROPHIL # (ANC) 12.5 K/uL (1.4-9.0); NEUTROPHIL % 81.6 %; NRBC % 0 /100WBC (0-0.00); PLATELET COUNT 365 K/uL (150-450); RBC 4.34 M/uL (3.50-5.50); RDW-CV 14.6 % (11.9-14.6); WBC 15.4 K/uL (4.0-11.0)
--- NOTE | 2016-07-10 05:38 | NUR ---
A/Ox3. Moves spontaneous x4. Continues to have pain to right shoulder. SR-ST with SBPs 110-120s. Tmax of 100. Started shift on HiFlow NC at 40% Fio2, then placed on Bipap at bedtime. o2 sats remain in low 90s with slight improvment on Bipap. Follow up: Continue to wean increased o2 demand.
--- NOTE | 2016-07-10 08:37 | NUR ---
diabetes consult: Patient with fasting blood sugar improved to 182 today from 275 yesterday. Levemir was increased yesterday by 10 units; Patient is currently receiving levemir 40 daily and Novolog aggressive ever 4 hours. Do not recommend any changes on insulin dosing at this time. Will continue to trend blood sugars.
--- NOTE | 2016-07-10 11:50 | NUR ---
A - NUT F/U. HIFLO NC/BIPAP. 1-2+ EDEMA. LABS: ACCUCHECK WNL->300, GLU 202, ALB 2.0, WBC 15.4. MEDS: LEVEMIR, PREVACID, HYDRODIURIL, SSI, ZYVOX. DIET: OSMOLITE 1.5 @ 50 ML/HR W/ 400 ML WATER Q4 HRS VIA DOBHOFF. RESIDUALS 0-380 (1X). PROVIDES 1800 KCAL, 75 G PRO, 914 ML FREE WATER. NEEDS: 5061-0838 KCAL, 75 G PRO D - DIFFICULTY SWALLOWING R/T RESPIRATORY STATUS AEB HIFLO NC/BIPAP, NEED FOR ENTERAL NUTRITION. I - GOAL FOR CONTINUED ENTERAL NUTRITION TOLERANCE. M/E - WILL MONITOR POC, TF F/U IN 3-4 DAYS.
--- NOTE | 2016-07-10 14:01 | NUR ---
SIGNIFICANT EVENT: PATIENT ALERT, ORIENTED X3. OPENS EYES SPONTANEOUSLY AND TO VOICE. PUPILS EQUAL AND REACTIVE. PATIENT NODS YES/NO APPROPRIATELY. PATIENT SPEECH IS SLOW, APPROPRIATE. MAKES ALL NEEDS KNOWN. NO FACIAL ASYMMETRY NOTED. PATIENT OCCASIOANLLY COMPLAINS OF R) SIDED FACIAL NUMBNESS/TINGLNIG THAT "COMES AND GOES". HARD OF HEARING. R) SHOULDER DISCOMFORT, RELIEF NOTED FROM ICE TO SHOULDER. PATIENT MOVES ALL 4 EXTREMITIES SPONTANEOUSLY AND TO COMMANDS, EQUAL STRENGTH THROUGHOUT. PATIENT STOOD AT BEDSIDE WITH PHYSICAL THERAPY X2 TODAY. UP IN CHAIR X2 TODAY. PATIENT HAS BEEN IN SINUS RHYTHM, HR 90-110S. PULSES PALPABLE THROUGHOUT. EDEMA PRESENT. MAX TEMP OF 100.2. HEPARIN GTT AT 1900 UNITS PER HOUR R/T POSSIBLE PE. BILAT PNEUMATICS ON. LEVOPHED STARTED FOR 2 HOURS, AT MAX OF 0.02 MCG/KG/MIN, CURRENTLY WEANED TO OFF. PATIENT ON 45% FIO2 NASAL CANULA HIGH FLOW. BOWEL SOUNDS PRESENT, 1 MODERATE MUSHY BOWEL MOVEMENT, NOT DIARRHEA. ACCU CHECKS Q4 HOURS, TREATED PER AGRESSIVE SSI PROTOCOL. MARI INTACT, ADEQUATE URINE OUTPUT. LIMITED ECHO TO BE COMPLETED AT BEDSIDE. NO NEW SKIN ISSUES NOTED. FOLLOW UP: CONTINUE TO MONITOR
--- NOTE | 2016-07-10 16:32 | NUR ---
1015 Stopped by to see Rebecca and family. Therapies were working with him and no family was present. Will stop back by tomorrow and visit with him and hopefully touch base with family at that time as well. CM to continue to follow and assist.
[2016-07-11 06:03] LABS: BLOOD UREA NITROGEN 20 mg/dL (6-24); CALCIUM 8.2 mg/dL (8.5-10.5); CHLORIDE 99 mMol/L (96-110); ESTIMATED GFR (MDRD EQUATION) > 60; SODIUM 140 mMol/L (135-145)
[2016-07-11 06:05] LABS: ANION GAP 10.1 (10.0-19.0); CO2 35 mMol/L (22-32); POTASSIUM 4.1 mMol/L (3.7-5.1)
[2016-07-11 06:10] LABS: PHOSPHORUS 2.4 mg/dL (2.5-4.9)
[2016-07-11 06:25] LABS: BASOPHIL # 0.1 K/uL (0.0-0.2); BASOPHIL % 0.4 %; EOSINOPHIL # 0.3 K/uL (0.0-0.5); EOSINOPHIL % 1.8 %; HEMATOCRIT 40.7 % (37.0-53.0); HEMOGLOBIN 12.6 g/dL (11.0-16.0); IMMATURE GRANULOCYTE # 0.4 K/uL (0.0-0.3); IMMATURE GRANULOCYTE % 2.4 %; LYMPHOCYTE # 1.6 K/uL (0.8-4.0); LYMPHOCYTE % 10.2 %; MCH 30.1 pg (27.0-34.0); MCV 97.4 fl (83.0-98.0); MPV 10.4 fl (9.4-12.4); NEUTROPHIL # (ANC) 12.4 K/uL (1.4-9.0); NEUTROPHIL % 79.2 %; NRBC % 0 /100WBC (0-0.00); PLATELET COUNT 388 K/uL (150-450); RBC 4.18 M/uL (3.50-5.50); RDW-CV 14.6 % (11.9-14.6); WBC 15.7 K/uL (4.0-11.0)
--- NOTE | 2016-07-11 06:44 | NUR ---
Significant Event: AOx3. RUE limited ROM. Equal strength throughout. ST, BP stable. Hiflow during day, bipap at night. Lung sounds clear and diminished. Cough present, small white secretions. Bowel sounds active, bm x1 this shift. Tolerating tube feed/flushes well. Florez intact, adequate UOP. No skin changes noted. Afebrile. PICC intact, white/hdz lumen sluggish but have blood return. Heparin drip infusing. Follow up: CT scan today possibly.
--- NOTE | 2016-07-11 08:19 | NUR ---
Diabetes consult: Fasting blood sugar is elevated this morning at 223, however blood sugars yesterday were improved ranging from 126-180 throughout the day. The patient is receiving tube feedings and is treated with Novolog aggressive correction. Recommend monitoring today, as Levemir was increased by 10 units on 07/09. Will reevaluate in on 07/12.
--- NOTE | 2016-07-11 14:10 | NUR ---
Significant Event: Alert and oriented x3. Follows commands, equal strength bilaterally. R) upper extremity injection today by Dr. Hameed. Hoarse voice, speech seeing patient for speech and swallowing. To call if HR > 125. On levophed currently at 0.02 mcq/kg/min to keep map > 65. R) dobhoff infusing Osmolite at 50 ml/hr, goal. H20 water flushes 400 ml q4h. Florez catheter intact. Nystatin to groins. Bathed this shift. Up to chair via full lift, stood with PT/OT. R) PICC triple lumen, infusing Heparin and levophed. Next PTTHP at 2100. q[address] CT of chest PE protocol done today. Bicarb given prior to CT. On BIPAP at night and high gustabo during day, copious oral secretions suctioned per patient. Cough +. Follow up: monitor.
[2016-07-12 04:34] LABS: ANION GAP 11.6 (10.0-19.0); BLOOD UREA NITROGEN 22 mg/dL (6-24); CALCIUM 8.3 mg/dL (8.5-10.5); CHLORIDE 96 mMol/L (96-110); CO2 32 mMol/L (22-32); CREATININE 0.9 mg/dL (0.6-1.3); ESTIMATED GFR (MDRD EQUATION) > 60; POTASSIUM 4.6 mMol/L (3.7-5.1); SODIUM 135 mMol/L (135-145)
[2016-07-12 05:03] LABS: BASOPHIL % 0.1 %; HEMATOCRIT 39.9 % (37.0-53.0); HEMOGLOBIN 12.4 g/dL (11.0-16.0); IMMATURE GRANULOCYTE # 0.3 K/uL (0.0-0.3); IMMATURE GRANULOCYTE % 1.8 %; LYMPHOCYTE # 0.6 K/uL (0.8-4.0); LYMPHOCYTE % 4.5 %; MCHC 31.1 gm/dL (32.0-36.5); MCV 96.6 fl (83.0-98.0); MONOCYTE # 0.7 K/uL (0.0-1.0); MONOCYTE % 4.8 %; MPV 10.6 fl (9.4-12.4); NEUTROPHIL # (ANC) 12.5 K/uL (1.4-9.0); NEUTROPHIL % 88.8 %; NRBC % 0 /100WBC (0-0.00); PLATELET COUNT 438 K/uL (150-450); RBC 4.13 M/uL (3.50-5.50); WBC 14.1 K/uL (4.0-11.0)
--- NOTE | 2016-07-12 06:44 | NUR ---
Significant Event: AOx3. SR, levophed infused from [id number] to keep map >65. Continues on hiflo/bipap, lung sounds clear and diminished. Not as many secretions from previous night. Dobhoff intact, tolerating TF well, BMx1. Florez intact, adequate UOP. No skin changes. Afebrile. PICC intact, SL'd. Follow up: Continue.
--- NOTE | 2016-07-12 16:58 | NUR ---
Significant Event: Patient is A&O X3, follows all commands, pupils are equal and reactive. SBP have been 80's-one teens, MAP's 60's-low 100's. Levo is running at 0.03mcg/kg/min. HR have been 70's-90's. Patient has been on Hi-flow at 40% Fio2. O2 sats have been low to mid 90's. Lung sounds are clear and diminished. Florez had 1865ml out. Patient is a Soft diet with thin liquids, 1:1 assist with meals. Follow up:
[2016-07-13 03:53] LABS: ANION GAP 11.7 (10.0-19.0); BLOOD UREA NITROGEN 25 mg/dL (6-24); CALCIUM 8.5 mg/dL (8.5-10.5); CHLORIDE 98 mMol/L (96-110); CO2 34 mMol/L (22-32); CREATININE 0.9 mg/dL (0.6-1.3); ESTIMATED GFR (MDRD EQUATION) > 60; POTASSIUM 4.7 mMol/L (3.7-5.1); SODIUM 139 mMol/L (135-145)
[2016-07-13 04:17] LABS: BASOPHIL % 0.3 %; EOSINOPHIL % 0.3 %; HEMATOCRIT 39.9 % (37.0-53.0); HEMOGLOBIN 12.5 g/dL (11.0-16.0); IMMATURE GRANULOCYTE # 0.3 K/uL (0.0-0.3); IMMATURE GRANULOCYTE % 2.2 %; LYMPHOCYTE # 1.2 K/uL (0.8-4.0); LYMPHOCYTE % 10.4 %; MCH 30.2 pg (27.0-34.0); MCHC 31.3 gm/dL (32.0-36.5); MCV 96.4 fl (83.0-98.0); MPV 10.3 fl (9.4-12.4); NEUTROPHIL # (ANC) 9.5 K/uL (1.4-9.0); NEUTROPHIL % 78.8 %; NRBC % 0 /100WBC (0-0.00); PLATELET COUNT 483 K/uL (150-450); RBC 4.14 M/uL (3.50-5.50)
--- NOTE | 2016-07-13 04:52 | NUR ---
Significant Event: A/O. VSS. LEVO WEANED TO 0.03MCG/KG/MIN. 50-70% ON HI-FLOW, CHANGED TO BIPAP AT 30% OVERNIGHT. HAD 50% OF DINNER. C/O OF NAUSEA AFTER. GAVE ZOFRAN X1. BM X1. C.DIFF (-). GOOD UOP. C/O PAIN IN R) SHOULDER AND FEET. TYLENOL GIVEN X2. REFUSED REPOSITIONING AT TIMES. Follow up: WEAN LEVO. ENCOURAGE ACTIVITY.
--- NOTE | 2016-07-13 09:04 | NUR ---
A - PT ON HI-AFUA O2, BIPAP AT NOC. GLU 170, BUN/BOOM TENDER 25/0.9, WBC 12.0. PT W/ 1+ EDEMA T/O. DIET: SOFT W/ 1:1 ASSIST. ATE 50% LAST NOC; NAUSEA PC ZOFRAN GIVEN. D - AT RISK W/ INADEQUATE ORAL INTAKE R/T DECREASED APPETITE & RECENT TRANSITION TO ORAL FEEDINGS. I - GOAL: 50-75% INTAKE BY NEXT REVIEW. M/E - WILL OFFER ENSURE TID W/ MEALS. F/U IN 3-5 DAYS.
[2016-07-13 10:12] LABS: BICARBONATE 40.1 mmol/L (18.0-23.0); PCO2 59 mmHg (35-45); PO2 54 mmHg (80-90)
--- NOTE | 2016-07-13 16:30 | NUR ---
Significant Event: Patient is A&O X3, follows all commands. Pupils are equal and reactive. SBP have been 80's-130's, MAP's 60's-80's. Levo is runing at 0.02mcg/kg/min. HR have been 80's-90's. Patient was put on 5L NC at 1555 o2 sats have been mid 90's. RR have been upper teens to 20's. Lung sounds are clear and diminished. Florez had 1660ml out. Gave 20mg Lasix IVP, 500mg Diamox IVP and 100ml of 25% Albumin. Follow up:
--- NOTE | 2016-07-14 05:47 | NUR ---
Significant Event: A/O. LEVO AT 0.03MCG/KG/MIN. WEANED TO 4L NC, BIPAP AT 30% OVERNIGHT. NOT ABLE TO COUGH ANY SPUTUM UP OVERNIGHT. TOLERATED PO INTAKE. SCANT MUCOUS BM OVERNIGHT. UP TO COMMODE X1. 2625ML OUT OF MARI. STOOL WITH 2PA, WALKER AND GATIBELT, WEAK BUT ABLE TO TAKE A FEW STEPS. TYLENOL GIVEN X1 FOR PAIN IN R) SHOULDER. Follow up: WEAN LEVO.
[2016-07-14 05:56] LABS: ANION GAP 13.3 (10.0-19.0); BLOOD UREA NITROGEN 26 mg/dL (6-24); CALCIUM 8.7 mg/dL (8.5-10.5); CHLORIDE 99 mMol/L (96-110); CO2 29 mMol/L (22-32); CREATININE 0.8 mg/dL (0.6-1.3); ESTIMATED GFR (MDRD EQUATION) > 60
[2016-07-14 05:58] LABS: POTASSIUM 4.3 mMol/L (3.7-5.1); SODIUM 137 mMol/L (135-145)
[2016-07-14 06:09] LABS: BASOPHIL # 0.1 K/uL (0.0-0.2); BASOPHIL % 0.4 %; EOSINOPHIL # 0.1 K/uL (0.0-0.5); EOSINOPHIL % 1.1 %; HEMOGLOBIN 12.2 g/dL (11.0-16.0); IMMATURE GRANULOCYTE # 0.2 K/uL (0.0-0.3); LYMPHOCYTE # 1.7 K/uL (0.8-4.0); LYMPHOCYTE % 14.3 %; MCH 29.8 pg (27.0-34.0); MCHC 30.5 gm/dL (32.0-36.5); MCV 97.6 fl (83.0-98.0); MONOCYTE # 1.1 K/uL (0.0-1.0); MONOCYTE % 9.3 %; MPV 10.3 fl (9.4-12.4); NEUTROPHIL # (ANC) 8.5 K/uL (1.4-9.0); NEUTROPHIL % 72.9 %; NRBC % 0 /100WBC (0-0.00); PLATELET COUNT 408 K/uL (150-450); WBC 11.6 K/uL (4.0-11.0)
--- NOTE | 2016-07-14 16:14 | NUR ---
Introduced self and CM role to Rebecca. He tells me that he was living in [place], [place] by himself prior to coming into the hospital. It is his goal to return home once he is able to. I asked him if he would be open to possibly going to the [facility] if he would need more therapies before going home. He tells me he is open to this. Also states that he has a daughter that lives in a town near him so he could go stay with her as well for a short time if needed as well. He states, "We will just see what happens and where I am at in a few days and then you can come back and talk with me more." Let him know that this was fine and I would come back and we could talk more next week. No other questions needs or concerns. CM to continue to follow and assist.
--- NOTE | 2016-07-14 17:15 | NUR ---
Significant Events: Patient oriented x3. Remains in SR, Levo remains to keep MAPs greater than 65. BP labile. Up to chair x2 this shift, did walk with PT 5 ft twice. O2 titrated to keep sats greater than 90%. Refused BiPap this afternoon when resting. Appetite fair, no difficulty with swallowing. Speech and MD ok'd to not have patient 1:1 with eating. Dobhoff d/c'd. Florez remain patent with adequate UOP. Follow up: Wean off Levo as able
[2016-07-15 05:15] LABS: ANION GAP 12.7 (10.0-19.0); BLOOD UREA NITROGEN 28 mg/dL (6-24); CALCIUM 8.9 mg/dL (8.5-10.5); CHLORIDE 99 mMol/L (96-110); CO2 29 mMol/L (22-32); CREATININE 0.9 mg/dL (0.6-1.3); ESTIMATED GFR (MDRD EQUATION) > 60; PHOSPHORUS 2.4 mg/dL (2.5-4.9); POTASSIUM 3.7 mMol/L (3.7-5.1); SODIUM 137 mMol/L (135-145)
[2016-07-15 05:21] LABS: BASOPHIL # 0.1 K/uL (0.0-0.2); BASOPHIL % 0.6 %; EOSINOPHIL # 0.1 K/uL (0.0-0.5); EOSINOPHIL % 1.4 %; HEMATOCRIT 39.3 % (37.0-53.0); HEMOGLOBIN 12.4 g/dL (11.0-16.0); IMMATURE GRANULOCYTE # 0.2 K/uL (0.0-0.3); IMMATURE GRANULOCYTE % 2.3 %; LYMPHOCYTE # 1.8 K/uL (0.8-4.0); LYMPHOCYTE % 17.7 %; MCH 30.2 pg (27.0-34.0); MCHC 31.6 gm/dL (32.0-36.5); MCV 95.6 fl (83.0-98.0); MPV 9.8 fl (9.4-12.4); NEUTROPHIL # (ANC) 6.7 K/uL (1.4-9.0); NRBC % 0 /100WBC (0-0.00); RBC 4.11 M/uL (3.50-5.50); RDW-CV 13.8 % (11.9-14.6); WBC 9.9 K/uL (4.0-11.0)
[2016-07-15 05:25] LABS: PLATELET COUNT 282 K/uL (150-450)
--- NOTE | 2016-07-15 05:39 | NUR ---
PT REMAINS ON LEVOPHED THIS SHIFT, DOSES RANGING FROM 0.02 - 0.04 MCG/KG/MIN. PRN APAP GIVEN X1 DOSE FOR PAIN TO SHOULDER, BACK, AND FOOT. TRANSFER BACK TO BED WITH 2PA, WALKER, AND GB; TOLERATED FAIR. BM X2 THIS SHIFT. UOP APPROPRIATE. LUCA MACIAS RN
--- NOTE | 2016-07-15 17:08 | NUR ---
Significant Event: Patient alert/oriented x 3. Needs motivation/encouragement to increase activity. SR 80-90s. Levo weaned off at 1530 this shift. Maps have been 65-70. Weaned to room air while awake. 1L NC while sleeping. Tylenol given x 1 for lower back pain, with relief. Up to the chair x 3 this shift with 2 assist walker/gaitbelt. 3 Smalled formed stools this shift. Good UOP. Follow up:Continue plan of care.
[2016-07-16 03:38] LABS: ANION GAP 11.9 (10.0-19.0); BLOOD UREA NITROGEN 25 mg/dL (6-24); CALCIUM 8.9 mg/dL (8.5-10.5); CHLORIDE 101 mMol/L (96-110); CO2 27 mMol/L (22-32); CREATININE 0.8 mg/dL (0.6-1.3); ESTIMATED GFR (MDRD EQUATION) > 60; POTASSIUM 3.9 mMol/L (3.7-5.1); SODIUM 136 mMol/L (135-145)
[2016-07-16 03:42] LABS: BASOPHIL % 0.4 %; EOSINOPHIL # 0.2 K/uL (0.0-0.5); EOSINOPHIL % 2.1 %; HEMATOCRIT 38.7 % (37.0-53.0); HEMOGLOBIN 12.3 g/dL (11.0-16.0); IMMATURE GRANULOCYTE # 0.4 K/uL (0.0-0.3); IMMATURE GRANULOCYTE % 3.6 %; LYMPHOCYTE # 1.8 K/uL (0.8-4.0); LYMPHOCYTE % 18.6 %; MCH 30.2 pg (27.0-34.0); MCHC 31.8 gm/dL (32.0-36.5); MCV 95.1 fl (83.0-98.0); MONOCYTE # 0.9 K/uL (0.0-1.0); MONOCYTE % 8.8 %; MPV 10.3 fl (9.4-12.4); NEUTROPHIL # (ANC) 6.5 K/uL (1.4-9.0); NEUTROPHIL % 66.5 %; NRBC % 0 /100WBC (0-0.00); PLATELET COUNT 343 K/uL (150-450); RBC 4.07 M/uL (3.50-5.50); RDW-CV 14.1 % (11.9-14.6); WBC 9.7 K/uL (4.0-11.0)
--- NOTE | 2016-07-16 04:32 | NUR ---
PT REMAINS OFF LEVO. MAPS 60S-90S. AFEBRILE. TRANSFERED BACK TO BED WITH 2PA, WALKER, GAITBELT; AMBULATED BETTER THAN PRIOR EVENING. REPOSITIONING WITH LESS ASSISTANCE. SPEECH CLEARER THIS SHIFT THAN PRIOR EVENING. LUCA MACIAS RN
--- NOTE | 2016-07-16 17:48 | NUR ---
Significant Event: Alert/oriented x 4. Levo remains off through the whole shift. Maps 64-70. HR 90-110. Afebrile. Oxygen weaned down to 1L NC. Continues to have a dry cough. Up to chair x 3 with 2 assist. Florez out this AM. several small voids along with several incontinent voids. Tylenol x 2 for back and R) shoulder pain. Follow up: continue plan of care
[2016-07-17 04:47] LABS: ANION GAP 13.9 (10.0-19.0); BLOOD UREA NITROGEN 22 mg/dL (6-24); CALCIUM 8.8 mg/dL (8.5-10.5); CHLORIDE 101 mMol/L (96-110); CO2 27 mMol/L (22-32); CREATININE 0.8 mg/dL (0.6-1.3); ESTIMATED GFR (MDRD EQUATION) > 60; PHOSPHORUS 2.6 mg/dL (2.5-4.9); POTASSIUM 3.9 mMol/L (3.7-5.1); SODIUM 138 mMol/L (135-145)
[2016-07-17 05:12] LABS: BASOPHIL # 0.1 K/uL (0.0-0.2); BASOPHIL % 0.4 %; EOSINOPHIL # 0.2 K/uL (0.0-0.5); HEMATOCRIT 37.9 % (37.0-53.0); HEMOGLOBIN 12.2 g/dL (11.0-16.0); IMMATURE GRANULOCYTE # 0.2 K/uL (0.0-0.3); IMMATURE GRANULOCYTE % 1.9 %; LYMPHOCYTE # 1.5 K/uL (0.8-4.0); LYMPHOCYTE % 12.4 %; MCH 30.5 pg (27.0-34.0); MCHC 32.2 gm/dL (32.0-36.5); MCV 94.8 fl (83.0-98.0); MONOCYTE # 0.9 K/uL (0.0-1.0); MONOCYTE % 7.3 %; MPV 10.1 fl (9.4-12.4); NEUTROPHIL # (ANC) 9.2 K/uL (1.4-9.0); NRBC % 0 /100WBC (0-0.00); PLATELET COUNT 371 K/uL (150-450); RDW-CV 14.1 % (11.9-14.6); WBC 12.1 K/uL (4.0-11.0)
--- NOTE | 2016-07-17 05:27 | NUR ---
Significant Event: Patient alert and oriented. Repositioned in bed frequently per patient request. Frequency in urination. VSS on room air. PCU status. Speech remains slow but patient able to make needs known. Cath-gustabo to right PICC. Pleasant and cooperative with cares. Follow up: continue to monitor
[2016-07-17 11:03] LABS: BILIRUBIN URINE NEGATIVE (NEGATIVE); BLOOD URINE 250 /UL (NEGATIVE); COLOR URINE STRAW (YELLOW); GLUCOSE URINE 250 mg/dL (NEGATIVE); KETONE URINE 5 mg/dL (NEGATIVE); LEUKOCYTES URINE 500 /UL (NEGATIVE); NITRITE URINE POSITIVE (NEGATIVE); PROTEIN URINE 100 mg/dL (NEGATIVE); SPEC GRAVITY URINE 1.015 (1.003-1.035); TURBIDITY URINE 4+ (CLEAR); UROBILINOGEN URINE 1 mg/dL (NORMAL)
[2016-07-17 11:13] LABS: WBC URINE PACKED FIELD #/HPF (NEGATIVE)
[2016-07-17 11:15] LABS: BACTERIA URINE MANY (NEGATIVE); RBC URINE 50-100 #/HPF (NEGATIVE); WBC CLUMPS URINE MODERATE (NEGATIVE)
--- NOTE | 2016-07-17 11:19 | NUR ---
MINIMAL INTAKE DATA. PER RN, PT IS EATING WELL. ENSURE OFFERED BUT PT DISLIKES, WILL DISCONTINUE. BASED ON CURRENT DATA, WILL MOVE PT TO NO RISK. WILL ASSIST NEEDED.
--- NOTE | 2016-07-17 16:26 | NUR ---
Significant Event:Alert and oriented x 3. Labile BP's ranging from 70's systolic to 120. 1000 ml saline bolus given this afternoon. Up to commode with 2 assist, uses urinal while in bed and has urgency. Uses call light appropriately. Worked with PT this twice today. Has eccmhymosis to R) groin, sore area and edema to R) shoulder. Triple lumen picc to R) upper arm, currently being TPA'd. Bilateral groin excoriation, nystatin ordered. Wears glasses, and needs encouragement to eat. Ultra high fall risk, but is appropriate with call light and direction. Follow up: AM ACTH lab.
--- NOTE | 2016-07-17 19:17 | NUR ---
PATIENT TRANSFERED TO PCU AT 17:00, REPORT FROM AIRLINE PILOT. VITALS BP 101/67/76, RR 24, HR 102, SATS 95% ON 1L NC. PATIENT TRANSFERED IN RECLINER, STATES NO C/O PAIN. TABS ALARM ON CHAIR.
[2016-07-18 04:15] LABS: ANION GAP 13.8 (10.0-19.0); BLOOD UREA NITROGEN 19 mg/dL (6-24); CALCIUM 9.3 mg/dL (8.5-10.5); CHLORIDE 102 mMol/L (96-110); CO2 25 mMol/L (22-32); CREATININE 0.8 mg/dL (0.6-1.3); ESTIMATED GFR (MDRD EQUATION) > 60; PHOSPHORUS 3.1 mg/dL (2.5-4.9); POTASSIUM 4.8 mMol/L (3.7-5.1); SODIUM 136 mMol/L (135-145)
[2016-07-18 04:33] LABS: BASOPHIL % 0.2 %; HEMATOCRIT 38.6 % (37.0-53.0); HEMOGLOBIN 12.5 g/dL (11.0-16.0); IMMATURE GRANULOCYTE # 0.2 K/uL (0.0-0.3); IMMATURE GRANULOCYTE % 2.2 %; LYMPHOCYTE # 0.7 K/uL (0.8-4.0); LYMPHOCYTE % 6.1 %; MCH 30.7 pg (27.0-34.0); MCHC 32.4 gm/dL (32.0-36.5); MCV 94.8 fl (83.0-98.0); MONOCYTE # 0.2 K/uL (0.0-1.0); MONOCYTE % 2.1 %; MPV 10.2 fl (9.4-12.4); NEUTROPHIL # (ANC) 9.9 K/uL (1.4-9.0); NEUTROPHIL % 89.4 %; NRBC % 0 /100WBC (0-0.00); PLATELET COUNT 367 K/uL (150-450); RBC 4.07 M/uL (3.50-5.50); RDW-CV 14.3 % (11.9-14.6); WBC 11.1 K/uL (4.0-11.0)
--- NOTE | 2016-07-18 12:52 | NUR ---
Talk with Dr. Cochran in the hallway, he tells me that Rebecca will most likely need some sort of short skilled stay before he is ready to go home on his own. I let him know that I had talked with Rebecca last week about possibly going to [facility] if he would need it and he was open to it then. I told Dr. Cochran I would go ahead and fax a referral to them and then come back and talk more with Rebecca this afternoon about [facility] and transportation to them if he should be accepted. Gathered information off of his chart and from the computer and faxed/called in a referral to Tiera at [facility]. Tiera states that she will look over the information and then get it infront of his PCP, Dr. Tijerina (pronounced "When") and once she had looked over it and made a decision, Tiera will call me back to update me. Let her know that this was fine and that we were looking towards the end of the week for him to be ready per Dr. Cochran. CM to continue to follow and assist.
--- NOTE | 2016-07-18 16:16 | NUR ---
Significant Event: A/OX3, VSS ON 2L PER NC. TYLENOL GIVEN AT 1420 FOR COMPLAINTS OF RLE PAIN, HAVE APPLIED WARM BLANKET TO LEG THROUGHOUT SHIFT. PT. GETS UP 2 ASSIST TO CHAIR & TO BATHROOM. USES URINAL AT TIMES, BUT NEEDS HELP. SMALL BM TODAY X2. PT/OT WORKED WITH PATIENT TODAY. POSSIBLE D/C TO SW[facility] IN [place] BY THE END OF THE WEEK. TRIPLE LUMEN PICC LINE TO RIGHT UPPER ARM IS SALINE LOCKED. CONTINUES ON AC/HS ACCUCHECKS, WITH AGGRESSIVE SSI. BLOOD SUGARS ON THE HIGHER SIDE D/T DEMADEX, PER DR. VIEYRA INCREASED TO 50 UNITS QDAY. STARTED ON METOPROLOL BID TODAY. Follow up: CONTINUE WITH POC.
--- NOTE | 2016-07-19 05:15 | NUR ---
Significant event: A/O x 3 slow to respond at times and very [place]. viods per urinal with urgency and frequency. Up with 1-2 assist. oxygen decreased to 1 L with sats in the low to mid 90's. Tylenol for pain in the right knee and right shoulder area with some relief noted. First Blood pressure was 99/61 but after that they have all been 120's-130's all other VSS. Triple Lumen PICC to upper right arm SL'D flushes well with good blood return.
--- NOTE | 2016-07-19 14:08 | NUR ---
Social visit with Rebecca. Talked with him about going to [facility] for continued therapies, he was in agreement with this plan. Also talked with him about transportation if he should need to go there in a private auto and who he could reach out to see if they could take him. He tells me his brother Dawit might be able to do this, but he doesn't know his number and doesn't have his cell phone here. I let him know I would try to connect with his brother or his daughter to see if they could work out a plan to come and pick him up as soon as Sunday to drive him to [facility]. I called and left a VM on his daughters phone in re:to dismissal plans, asked that she call me back when she could. I also called and left a VM on [facility]' phone at the [facility] to see if they were going to be able to accept on Sunday or not, but no call back from her at this time. Will continue to follow and assist.
--- NOTE | 2016-07-19 16:38 | NUR ---
Significant Event: SOME MED CHANGES TODAY, OTHERWISE NOTHING NEW. PLAN FOR [facility] ON SUNDAY, PT NEEDS TO BE READY TO GO BY 11 AM. PHONE NUMBERS ON FRONT OF [facility] FOR DR-DR AND NURSE TO NURSE REPORT. ONE ASSIST WITH GAIT BELT AND WALKER Follow up: MONITOR
--- NOTE | 2016-07-20 04:27 | NUR ---
Significant Event: A/O x3. Afebrile. C/O neck pain, gave tylenol x1. VSS on RA. SBP 110-130s. Uses urinal w/ no complications. Frequent/urgent urination. Rt upper arm PICC patent. Follow up: Will D/C to [facility] on sunday.
[2016-07-20 11:04] LABS: BILIRUBIN URINE NEGATIVE (NEGATIVE); BLOOD URINE 25 /UL (NEGATIVE); GLUCOSE URINE 100 mg/dL (NEGATIVE); KETONE URINE NEGATIVE (NEGATIVE); LEUKOCYTES URINE 500 /UL (NEGATIVE); NITRITE URINE POSITIVE (NEGATIVE); PROTEIN URINE 15 mg/dL (NEGATIVE); UROBILINOGEN URINE NORMAL (NORMAL)
[2016-07-20 11:05] LABS: COLOR URINE AMBER (YELLOW); TURBIDITY URINE 2+ (CLEAR)
[2016-07-20 11:16] LABS: WBC URINE 50-100 #/HPF (NEGATIVE)
[2016-07-20 11:17] LABS: BACTERIA URINE MANY (NEGATIVE); EPITHELIAL URINE 0-2 #/HPF (NEGATIVE)
--- NOTE | 2016-07-20 16:07 | NUR ---
Significant Event: A/Ox3. SBP- 80-120s. P-90-110s. Febrile 99.4-100.5. NSR. Tachypnic at times. R) UA PIC infusing NS at 100ml/hr. Torodol given IVP x1 for R) flank back pain. UA collected. Patient started on rocephin for UTI. 1L bolus of NS after hypotension on last assessment. Prednisone d/c'd and patient started on IV hydrocortisone. Patient will not dismiss to correction in AM.
--- NOTE | 2016-07-21 04:28 | NUR ---
Significant Event: A/O x3. Afebrile. Pain in left flank, leg, and stomach. Gave torodol x1, tylenol x1. VSS on RA. SBP 120-150s. HR 90-100s. Frequent urination, 990 UOP. [place] tinted urine. Gave IV rocephin and solumedrol. Follow up: Continue to monitor per plan of care.
--- NOTE | 2016-07-21 10:30 | NUR ---
Notified this a.m. patient not ready for transfer today, as had positive blood cultures. Called and updated Tiera at [facility]. Will touchbase with Tiera on Sunday. Will follow.
[2016-07-21 12:12] LABS: BASOPHIL % 0.2 %; EOSINOPHIL % 0.1 %; HEMATOCRIT 36.9 % (37.0-53.0); HEMOGLOBIN 11.6 g/dL (11.0-16.0); IMMATURE GRANULOCYTE # 0.2 K/uL (0.0-0.3); IMMATURE GRANULOCYTE % 0.8 %; LYMPHOCYTE # 0.5 K/uL (0.8-4.0); LYMPHOCYTE % 2.8 %; MCH 30.1 pg (27.0-34.0); MCHC 31.4 gm/dL (32.0-36.5); MCV 95.8 fl (83.0-98.0); MONOCYTE # 1.2 K/uL (0.0-1.0); MONOCYTE % 6.3 %; MPV 9.8 fl (9.4-12.4); NEUTROPHIL % 89.8 %; NRBC % 0 /100WBC (0-0.00); PLATELET COUNT 313 K/uL (150-450); RBC 3.85 M/uL (3.50-5.50); RDW-CV 15.1 % (11.9-14.6)
[2016-07-21 12:15] LABS: WBC 18.9 K/uL (4.0-11.0)
[2016-07-21 12:43] LABS: ALBUMIN 2.1 gm/dL (3.5-5.0); ALK PHOS 64 IU/L (33-138); ALT 18 IU/L (12-78); ANION GAP 13.1 (10.0-19.0); AST 11 IU/L (10-40); BLOOD UREA NITROGEN 18 mg/dL (6-24); CALCIUM 8.3 mg/dL (8.5-10.5); CHLORIDE 105 mMol/L (96-110); CO2 24 mMol/L (22-32); ESTIMATED GFR (MDRD EQUATION) > 60; MAGNESIUM 1.3 mg/dL (1.8-2.6); POTASSIUM 4.1 mMol/L (3.7-5.1); SODIUM 138 mMol/L (135-145); TOTAL BILIRUBIN 0.5 mg/dL (0.0-1.5); TOTAL PROTEIN 6.1 g/dL (6.0-8.4)
--- NOTE | 2016-07-21 16:20 | NUR ---
Significant Event: A/OX3, VSS ON ROOM AIR. TORDAL GIVEN X1 @ 1033 FOR COMPLAINTS OF FLANK/ABDOMEN PAIN. PT. GETS UP 2 ASSIST TO CHAIR & BATHROOM. SHOWERED TODAY. NO BM. VOIDS IN TOLIET & URINAL BUT NEEDS HELP WITH URINAL. PT. RESTED IN BED THROUGHOUT SHIFT. REMAINS ON AC/HS ACCUCHECKS. TRIPLE LUMEN PICC TO RIGHT UPPER ARM HAS NS @ 100mL/HR. CT SCAN OF ABDOMEN/PELVIS TODAY. BLOOD CULTURES CAME BACK +ON BOTH SETS FOR GM+ COCCI IN CLUSTERS & STAPH AUREUS. 1500mG VANCO GIVEN X1. Follow up: CONTINUE WITH POC.
[2016-07-22 03:39] LABS: BASOPHIL % 0.1 %; EOSINOPHIL % 0.2 %; HEMATOCRIT 35.4 % (37.0-53.0); HEMOGLOBIN 11.3 g/dL (11.0-16.0); IMMATURE GRANULOCYTE # 0.2 K/uL (0.0-0.3); IMMATURE GRANULOCYTE % 1.1 %; LYMPHOCYTE # 0.7 K/uL (0.8-4.0); LYMPHOCYTE % 3.6 %; MCH 30.5 pg (27.0-34.0); MCHC 31.9 gm/dL (32.0-36.5); MCV 95.7 fl (83.0-98.0); MONOCYTE # 1.1 K/uL (0.0-1.0); MONOCYTE % 5.8 %; MPV 10.5 fl (9.4-12.4); NEUTROPHIL # (ANC) 17.5 K/uL (1.4-9.0); NEUTROPHIL % 89.2 %; NRBC % 0 /100WBC (0-0.00); PLATELET COUNT 295 K/uL (150-450); RDW-CV 15.1 % (11.9-14.6)
[2016-07-22 03:40] LABS: WBC 19.6 K/uL (4.0-11.0)
[2016-07-22 04:19] LABS: ALK PHOS 66 IU/L (33-138); ALT 17 IU/L (12-78); AST 13 IU/L (10-40); BLOOD UREA NITROGEN 15 mg/dL (6-24); CALCIUM 8.2 mg/dL (8.5-10.5); CHLORIDE 105 mMol/L (96-110); CO2 24 mMol/L (22-32); CREATININE 0.8 mg/dL (0.6-1.3); ESTIMATED GFR (MDRD EQUATION) > 60; MAGNESIUM 1.4 mg/dL (1.8-2.6); SODIUM 139 mMol/L (135-145); TOTAL BILIRUBIN 0.5 mg/dL (0.0-1.5)
[2016-07-22 04:23] LABS: ALBUMIN 1.9 gm/dL (3.5-5.0)
--- NOTE | 2016-07-22 04:42 | NUR ---
Significant Event: A/0X3. SYCUAN. RESTED IN BED ALL OF SHIFT. TURNED Q 2 HRS SIDE TO SIDE. SLIGHT TEMP OF 99.7 BEGINNING OF SHIFT BUT BEEN AFEBRILE SINCE. VSS ON RA. AT THE BEGINNING TO THE SHIFT PATIENT WAS HAVING C/O OF FLANK PAIN, ABD PAIN ACROSS THE MIDDLE OF THE ABD, AND BACK PAIN. IV TORADOL WAS GIVEN AND PATIENT WAS ABLE TO FIND SOME RELIEF. TYLENOL GIVEN X1 FOR A DULL HEADACHE. PATIENT WAS ABLE TO FIND RELIEF AND REST OFF AND ON THROUGHOUT THE NIGHT WITH NO MORE C/O OF PAIN. PICC TO R) UPPER ARM HAS NS @ 100 ML/H. FLUSHES WITH GOOD BLOOD RETURN. PATIENT STILL HAVING URGENCT AND FREQUENCY TO URINATE. PATIENT VOIDED 925+ MLS PER THE URINAL. NO BM THIS SHIFT. Follow up: CONTINUE WITH PLAN OF CARE.
--- NOTE | 2016-07-22 17:28 | NUR ---
Significant Event: A/OX3, VSS ON ROOM AIR. PT. HAS RESTED WELL THROUGHOUT THE SHIFT, DANGLES AT BEDSIDE FOR MEALS. 3GM OF MG GIVEN TODAY X1. NO COMPLAINTS OF PAIN. TRIPLE LUMEN PICC LINE TO RIGHT ARM IS SALINE LOCKED, CAPS CHANGED. MRI MACHINE WENT DOWN, WILL REPEAT IN AM. PT. GETS UP 2 ASSIST. LEVEMIR RESTARTED TODAY @ 25UNITS. VOIDS IN URINAL. FAMILY HERE TODAY. Follow up: MRI IN AM.
--- NOTE | 2016-07-23 04:37 | NUR ---
Significant event: A/O x 3. C/O Lower Abdominal Pain Toradol x 1 given at 0122 with relief noted. PICC line DC'd with tip sent down to be cultured. PIV started in left wrist. Very frequent voids with 1750ml of UOP. Will try and go down for the MRI again this morning.
[2016-07-23 04:58] LABS: BASOPHIL % 0.1 %; EOSINOPHIL # 0.3 K/uL (0.0-0.5); EOSINOPHIL % 1.7 %; HEMATOCRIT 35.5 % (37.0-53.0); HEMOGLOBIN 11.4 g/dL (11.0-16.0); IMMATURE GRANULOCYTE # 0.2 K/uL (0.0-0.3); IMMATURE GRANULOCYTE % 1.4 %; LYMPHOCYTE % 5.9 %; MCH 30.2 pg (27.0-34.0); MCHC 32.1 gm/dL (32.0-36.5); MCV 94.2 fl (83.0-98.0); MONOCYTE # 1.2 K/uL (0.0-1.0); MONOCYTE % 7.5 %; NEUTROPHIL # (ANC) 13.3 K/uL (1.4-9.0); NEUTROPHIL % 83.4 %; NRBC % 0 /100WBC (0-0.00); PLATELET COUNT 341 K/uL (150-450); RBC 3.77 M/uL (3.50-5.50); RDW-CV 14.6 % (11.9-14.6)
[2016-07-23 05:16] LABS: ALK PHOS 70 IU/L (33-138); ALT 16 IU/L (12-78); BLOOD UREA NITROGEN 12 mg/dL (6-24); CALCIUM 8.6 mg/dL (8.5-10.5); CHLORIDE 103 mMol/L (96-110); CO2 26 mMol/L (22-32); CREATININE 0.8 mg/dL (0.6-1.3); ESTIMATED GFR (MDRD EQUATION) > 60; SODIUM 136 mMol/L (135-145); TOTAL BILIRUBIN 0.6 mg/dL (0.0-1.5)
[2016-07-23 05:18] LABS: ALBUMIN 1.8 gm/dL (3.5-5.0); ANION GAP 11.1 (10.0-19.0); AST 17 IU/L (10-40); MAGNESIUM 1.7 mg/dL (1.8-2.6); POTASSIUM 4.1 mMol/L (3.7-5.1)
--- NOTE | 2016-07-23 16:36 | NUR ---
Significant Event: A/OX3, VSS ON RA. TYLENOL GIVEN @ 1204 FOR HEADACHE. PT. SLEPT ON SIDE MOST OF THE DAY, DANGLED @ BEDSIDE TO EAT MEALS. WALKED DOWN TO END OF HALLWAYS WITH PHYSICAL THERAPY. ACCUCHECKS BETTER TODAY. SLIV TO L)WRIST. BLOOD CULTURES X2 IN AM. STARTING ON PREDNISONE IN AM, SOLUCORTEF D/C. MRI MACHINE STILL DOWN PROBABLY UNTIL SUNDAY. Follow up: CONTINUE WITH POC.
[2016-07-24 03:58] LABS: BASOPHIL % 0.1 %; EOSINOPHIL # 0.5 K/uL (0.0-0.5); EOSINOPHIL % 3.6 %; HEMATOCRIT 37.4 % (37.0-53.0); HEMOGLOBIN 11.8 g/dL (11.0-16.0); IMMATURE GRANULOCYTE # 0.3 K/uL (0.0-0.3); LYMPHOCYTE # 1.2 K/uL (0.8-4.0); LYMPHOCYTE % 8.5 %; MCH 30.3 pg (27.0-34.0); MCHC 31.6 gm/dL (32.0-36.5); MCV 96.1 fl (83.0-98.0); MONOCYTE # 1.3 K/uL (0.0-1.0); MONOCYTE % 9.3 %; MPV 9.6 fl (9.4-12.4); NEUTROPHIL # (ANC) 10.5 K/uL (1.4-9.0); NEUTROPHIL % 76.5 %; NRBC % 0 /100WBC (0-0.00); PLATELET COUNT 331 K/uL (150-450); RBC 3.89 M/uL (3.50-5.50); RDW-CV 14.7 % (11.9-14.6); WBC 13.7 K/uL (4.0-11.0)
[2016-07-24 04:11] LABS: ALK PHOS 72 IU/L (33-138); ALT 18 IU/L (12-78); ANION GAP 13.8 (10.0-19.0); AST 13 IU/L (10-40); BLOOD UREA NITROGEN 14 mg/dL (6-24); CALCIUM 8.5 mg/dL (8.5-10.5); CHLORIDE 100 mMol/L (96-110); CO2 26 mMol/L (22-32); CREATININE 0.9 mg/dL (0.6-1.3); ESTIMATED GFR (MDRD EQUATION) > 60; MAGNESIUM 1.5 mg/dL (1.8-2.6); POTASSIUM 3.8 mMol/L (3.7-5.1); SODIUM 136 mMol/L (135-145); TOTAL BILIRUBIN 0.5 mg/dL (0.0-1.5)
[2016-07-24 04:12] LABS: ALBUMIN 1.8 gm/dL (3.5-5.0)
--- NOTE | 2016-07-24 05:10 | NUR ---
Significant event: A/O x 3. Up with 2 assist. Has been up most of the night. Uses the urinal every 30-60min. Has had tylenol and toradol x 1 for lower abdominal pain. IV to left wrist SL'D. Blood Cultures X 2 drawn this morning. continue with Poc.
--- NOTE | 2016-07-24 12:57 | NUR ---
A - PT SEEN D/T LOS. GLU 189, ALB 1.8, WBC 13.7. 1+ EDEMA T/O. DIET: DIABETIC W/ INTAKE 0-50%. EST NEEDS: [id number] KCALS, 75 GM PROTEIN. PT TRIED ENSURE ON ICU, DISLIKES. D - AT RISK W/ INADEQUATE ORAL INTAKE R/T DECREASED APPETITE AEB INTAKE RECORD. I - GOAL: 50% OR BETTER INTAKE. M/E - WILL TRY ENSURE CLEAR W/ MEALS AND MONITOR FOR ACCEPTANCE. F/U IN 2-4 DAYS.
--- NOTE | 2016-07-24 13:16 | NUR ---
Faxed/called in an update to Tiera at [facility]. I also talked with Dr. Hoang, he tells me that it will most likely be a couple days before he is ready for dismissal. I let him know that this was fine and that I would continue to keep Janine updated at the [facility] so we didn't loose that option for [facility] when Rebecca was ready to dismiss. Rebecca was working with therapies so I didn't get to visit with him but will try to stop by later today or tomorrow and talk with him. Plan was for his brother to come and pick him up when ready to dismiss, so I am guessing we will still use that option when he is ready to dismiss later this week. No other questions, needs or concerns. CM to continue to follow and assist. Tiera knows to contact me with any further questions or concerns. P:[phone] F:[phone].
--- NOTE | 2016-07-24 15:54 | NUR ---
A&O. 1PA. SBP 130'S-160'S. HR 110'S. RA. AFEBRILE. C/O ABD PAIN TYLENOL X2. MRI ABD TOMORROW.R WRIST SL INT IV ATBX. ACHS. UTI VD FREQUNT/SMALL. MOD BM X2 TODAY. LS CLEAR. CSM WNL.
--- NOTE | 2016-07-25 04:48 | NUR ---
Significant events: Pt A/Ox3. VSS. On RA. Up 1PA, walker and gaitbelt. Pt voiding at least every hour, 100ml at a time. Tylenol x1 for abdominal pain, pt later states he thinks it was just gas pains. ACHS accuchecks. Zofran x1. Cooperative with cares.
[2016-07-25 05:22] LABS: BASOPHIL % 0.1 %; EOSINOPHIL # 0.4 K/uL (0.0-0.5); EOSINOPHIL % 2.8 %; HEMATOCRIT 35.7 % (37.0-53.0); HEMOGLOBIN 11.6 g/dL (11.0-16.0); IMMATURE GRANULOCYTE # 0.4 K/uL (0.0-0.3); IMMATURE GRANULOCYTE % 2.4 %; LYMPHOCYTE # 1.1 K/uL (0.8-4.0); LYMPHOCYTE % 6.9 %; MCH 30.9 pg (27.0-34.0); MCHC 32.5 gm/dL (32.0-36.5); MCV 95.2 fl (83.0-98.0); MONOCYTE # 1.4 K/uL (0.0-1.0); MPV 9.1 fl (9.4-12.4); NEUTROPHIL % 78.8 %; NRBC % 0 /100WBC (0-0.00); PLATELET COUNT 346 K/uL (150-450); RBC 3.75 M/uL (3.50-5.50); RDW-CV 14.6 % (11.9-14.6); WBC 15.3 K/uL (4.0-11.0)
[2016-07-25 05:40] LABS: ALBUMIN 1.8 gm/dL (3.5-5.0); ALK PHOS 71 IU/L (33-138); ALT 13 IU/L (12-78); ANION GAP 13.4 (10.0-19.0); AST 9 IU/L (10-40); BLOOD UREA NITROGEN 9 mg/dL (6-24); CALCIUM 8.4 mg/dL (8.5-10.5); CHLORIDE 101 mMol/L (96-110); CO2 27 mMol/L (22-32); CREATININE 0.8 mg/dL (0.6-1.3); ESTIMATED GFR (MDRD EQUATION) > 60; MAGNESIUM 1.7 mg/dL (1.8-2.6); POTASSIUM 4.4 mMol/L (3.7-5.1); SODIUM 137 mMol/L (135-145); TOTAL BILIRUBIN 0.6 mg/dL (0.0-1.5)
--- NOTE | 2016-07-25 12:24 | NUR ---
Talked with Dr. Hoang, he tells me that he anticipates that Rebecca will be here a few more days with us so don't worry about making plans for transfer at this time. Will keep touching base with Dr. Hoang and keep updating Tiera at [facility] so when the time for Rebecca to dismiss gets closer, we can start making arrangements for transportation, MD to MD report and RN to RN report to happen. CM to continue to follow and assist.
--- NOTE | 2016-07-25 16:43 | NUR ---
A&O. 1PA. SBP 110'S-140'S. HR 100'S. RA. AFEBRILE. C/O HEAD ACHE AND ABD PAIN. TYLENOL X3. MRI OF ABD DONE TODAY. ACHS. LS CLEAR/DIM. BS ACTIVE. CHRONIC N/T. PLAN IS SKN??
[2016-07-26 03:42] LABS: BASOPHIL # 0.1 K/uL (0.0-0.2); BASOPHIL % 0.4 %; EOSINOPHIL # 0.4 K/uL (0.0-0.5); EOSINOPHIL % 2.6 %; HEMATOCRIT 36.1 % (37.0-53.0); HEMOGLOBIN 11.4 g/dL (11.0-16.0); IMMATURE GRANULOCYTE # 0.4 K/uL (0.0-0.3); IMMATURE GRANULOCYTE % 2.7 %; LYMPHOCYTE # 1.1 K/uL (0.8-4.0); LYMPHOCYTE % 7.6 %; MCH 30.3 pg (27.0-34.0); MCHC 31.6 gm/dL (32.0-36.5); MONOCYTE # 1.1 K/uL (0.0-1.0); MONOCYTE % 7.4 %; NEUTROPHIL # (ANC) 11.7 K/uL (1.4-9.0); NEUTROPHIL % 79.3 %; NRBC % 0 /100WBC (0-0.00); PLATELET COUNT 338 K/uL (150-450); RBC 3.76 M/uL (3.50-5.50); RDW-CV 14.8 % (11.9-14.6); WBC 14.8 K/uL (4.0-11.0)
[2016-07-26 04:02] LABS: ALK PHOS 81 IU/L (33-138); ALT 15 IU/L (12-78); ANION GAP 13.3 (10.0-19.0); AST 10 IU/L (10-40); BLOOD UREA NITROGEN 9 mg/dL (6-24); CALCIUM 8.6 mg/dL (8.5-10.5); CHLORIDE 100 mMol/L (96-110); CO2 27 mMol/L (22-32); CREATININE 0.7 mg/dL (0.6-1.3); ESTIMATED GFR (MDRD EQUATION) > 60; MAGNESIUM 1.6 mg/dL (1.8-2.6); POTASSIUM 4.3 mMol/L (3.7-5.1); SODIUM 136 mMol/L (135-145); TOTAL BILIRUBIN 0.7 mg/dL (0.0-1.5)
[2016-07-26 04:08] LABS: ALBUMIN 1.9 gm/dL (3.5-5.0)
--- NOTE | 2016-07-26 04:36 | NUR ---
Significant events: Pt A/Ox3, slow. VSS. On RA. Up 1PA. Tylenol and zofran given x1 for abdominal pain. Pt continues to void frequently. Slept on and off this shift. ACHS accucheck. Cooperative with cares.
--- NOTE | 2016-07-26 14:33 | NUR ---
Significant Event: PT A&O x3, slow to respond, [place]. VSS, on room air. IV restarted to R)hand. Tylenol given x1 for c/o abdominal/shoulder pain. PT ambulates with walker, gait belt and 1 assist. Gastro, urology and ID consulted. Antibiotics changed. Blood sugars in the upper 200's. Voids per urinal. Minimal appetite. Follow up:
--- NOTE | 2016-07-26 16:03 | NUR ---
LUCAS from [facility] wanting an update on Rebecca. Update was faxed to her early this afternoon, will call and visit with her about this tomorrow morning and also try to set up a day and time that they will be able to accept Rebecca when he is cleared to dismiss from our facility. ID supposed to see Rebecca today and give further medications recommendations. CM to continue to follow and assist.
--- NOTE | 2016-07-27 04:42 | NUR ---
Significant Event: A*OX3. TELLER. VSS.RA.TYLENOL GIVEN FOR ABDOMINAL PAIN, BACK AND HEAD ACHE. VOIDS FREQUENTLY, SMALL AMOUNTS. UP TO BATHROOM SEVERAL TIMES, NO BM. POST VOID BLADDER SCAN 356ML CALLED TO . UP W/FWW AND GB. Follow up: AM POST VOID BLADDER SCAN
[2016-07-27 07:26] LABS: BASOPHIL % 0.3 %; EOSINOPHIL # 0.4 K/uL (0.0-0.5); EOSINOPHIL % 2.6 %; HEMATOCRIT 36.6 % (37.0-53.0); HEMOGLOBIN 11.4 g/dL (11.0-16.0); IMMATURE GRANULOCYTE # 0.5 K/uL (0.0-0.3); IMMATURE GRANULOCYTE % 3.8 %; LYMPHOCYTE # 1.1 K/uL (0.8-4.0); LYMPHOCYTE % 7.8 %; MCHC 31.1 gm/dL (32.0-36.5); MCV 96.3 fl (83.0-98.0); MONOCYTE # 0.8 K/uL (0.0-1.0); MONOCYTE % 5.9 %; MPV 8.7 fl (9.4-12.4); NEUTROPHIL # (ANC) 11.2 K/uL (1.4-9.0); NEUTROPHIL % 79.6 %; NRBC % 0 /100WBC (0-0.00); PLATELET COUNT 344 K/uL (150-450); RDW-CV 14.7 % (11.9-14.6)
[2016-07-27 07:47] LABS: ALBUMIN 1.9 gm/dL (3.5-5.0); ALK PHOS 118 IU/L (33-138); ALT 13 IU/L (12-78); ANION GAP 14.3 (10.0-19.0); AST 13 IU/L (10-40); BLOOD UREA NITROGEN 8 mg/dL (6-24); CALCIUM 8.7 mg/dL (8.5-10.5); CHLORIDE 97 mMol/L (96-110); CO2 28 mMol/L (22-32); CREATININE 0.8 mg/dL (0.6-1.3); ESTIMATED GFR (MDRD EQUATION) > 60; MAGNESIUM 1.7 mg/dL (1.8-2.6); POTASSIUM 4.3 mMol/L (3.7-5.1); SODIUM 135 mMol/L (135-145); TOTAL BILIRUBIN 0.6 mg/dL (0.0-1.5); TOTAL PROTEIN 6.1 g/dL (6.0-8.4)
--- NOTE | 2016-07-27 09:47 | NUR ---
A - NUTRITION F/U. GLU 278, BUN/STRAW HAT BRIM CUTTER OPERATOR 8/0.8, ALB 1.9, WBC 14.0. PT W/ 1+ EDEMA T/O. DIET: DIABETIC W/ ENSURE CLEAR TID. INTAKE IMPROVED TO BITES TO 100%, AVERAGE 50%. D - AT RISK W/ INADEQUATE ORAL INTAKE R/T DECREASED APPETITE AEB INTAKE RECORD. I - GOAL: 50% OR BETTER INTAKE FOR DURATION OF STAY. M/E - CONT TO ENCOURAGE ORAL INTAKE. F/U IN 4-6 DAYS.
--- NOTE | 2016-07-27 14:01 | NUR ---
Stopped by to review Landon' chart to see if Dr. Hoang had rounded yet to give an idea of when Rebecca would be ready to go to [facility]. Per RN, Mohini and from reviewing his charting, Dr. Hoang has not rounded on him yet today. I have asked Mohini to ask Dr. Hoang when he was thinking about Rebecca being ready to go, if we were thinking Sunday vs Sunday and once she talked to him about this, either call me or leave a note for me on the chart. Mohini tells me she will do this and then let me know what she finds out. I faxed an update to Tiera yesterday and let her know at that time I would update her more today once I had heard from Dr. Hoang. I also talked with Tiera via phone call at 1300 and let her know that I was waiting on Dr. Hoang to round and then update her after that. CM to continue to follow and assist.
--- NOTE | 2016-07-27 17:09 | NUR ---
Significant Event: Alert and oriented X 3. Room air. SBP 130's and 120's. HR 100's. Up to bathroom several times during shift. Complaints of constipation, milk of mag given with large bowel movement. Bladder scan after void of 150 ml showed 229 ml still remaining in bladder. Dr. Blanc notified and Flomax started. Tylenol given at 1450 for headache and abdomen pain. PICC line being placed today. Peripheral IV to right hand, flushed well with no blood return. Up with 1 assist, walker and gait belt. Follow up: Plan for dismissal tomorrow to [facility] at 1230.
--- NOTE | 2016-07-28 04:10 | NUR ---
Significant Event: Patient A/Ox3. VSS on RA. Patient had significantly more intake than output during dayshift, but has had adequate UOP tonight to make up for it. Patient urinates every half hour to every hour, small amounts at a time. Up 1-assist. PICC to R) arm has good blood return. Follow up: Dismiss to [facility] at 1230. Family is transporting.
[2016-07-28 04:36] LABS: ALK PHOS 210 IU/L (33-138); ALT 19 IU/L (12-78); AST 24 IU/L (10-40); BLOOD UREA NITROGEN 7 mg/dL (6-24); CALCIUM 8.8 mg/dL (8.5-10.5); CHLORIDE 99 mMol/L (96-110); CO2 32 mMol/L (22-32); CREATININE 0.7 mg/dL (0.6-1.3); ESTIMATED GFR (MDRD EQUATION) > 60; MAGNESIUM 1.8 mg/dL (1.8-2.6); SODIUM 140 mMol/L (135-145); TOTAL BILIRUBIN 0.7 mg/dL (0.0-1.5); TOTAL PROTEIN 6.2 g/dL (6.0-8.4)
[2016-07-28 04:38] LABS: ALBUMIN 1.9 gm/dL (3.5-5.0)
[2016-07-28 04:50] LABS: BASOPHIL % 0.2 %; EOSINOPHIL # 0.3 K/uL (0.0-0.5); EOSINOPHIL % 2.1 %; HEMATOCRIT 36.5 % (37.0-53.0); HEMOGLOBIN 11.4 g/dL (11.0-16.0); IMMATURE GRANULOCYTE # 0.5 K/uL (0.0-0.3); IMMATURE GRANULOCYTE % 3.1 %; LYMPHOCYTE # 1.3 K/uL (0.8-4.0); LYMPHOCYTE % 8.3 %; MCH 29.9 pg (27.0-34.0); MCHC 31.2 gm/dL (32.0-36.5); MCV 95.8 fl (83.0-98.0); MONOCYTE # 0.9 K/uL (0.0-1.0); MONOCYTE % 5.7 %; MPV 9.2 fl (9.4-12.4); NEUTROPHIL # (ANC) 12.6 K/uL (1.4-9.0); NEUTROPHIL % 80.6 %; NRBC % 0 /100WBC (0-0.00); PLATELET COUNT 383 K/uL (150-450); RBC 3.81 M/uL (3.50-5.50); RDW-CV 14.6 % (11.9-14.6); WBC 15.6 K/uL (4.0-11.0)
--- NOTE | 2016-07-28 11:19 | NUR ---
PATIENT IS A/OX3. VSS ON ROOM AIR, VS 130/62, 97.7, 18, 123, 96% O2 SATS. NO COMPLAINTS OF PAIN. PT. TRANSFERS 1 ASSIST WITH GAIT BELT/WALKER. WALKED IN HALLS WITH PHYSICAL THERAPY. PT. SHOWERED TODAY. SINGLE LUMEN PICC LINE TO RIGHT UPPER ARM, DRESSING CHANGED TODAY, FLUSHES WITH GOOD BLOOD RETURN. ALOE TO RED BUTTOCKS, BILATERAL GROINS GET NYSTATIN POWDER BID. BELLY BRUISED FROM SUB-Q HEPARIN SHOTS. RIGHT SHOULDER HAS LIMITED ROM D/T BAD ROTATOR CUFF. LAST ACCUCHECK WAS 310, GAVE 12 UNTIS OF NOVOLOG. LAST PRINTOUT OF HOME MEDS IN TRANSFER PACKET. BROTHER HERE TO TRANSPORT PT. ALL BELONGINGS SENT HOME WITH PATIENT.
--- NOTE | 2016-07-28 12:27 | NUR ---
Call to Landon' RN Gertrude Yañez, she tells me that Dr. Hoang has completed the orders and phoned in the MD to MD report and we are cleared for Rebecca to go to [facility] today. Told her that this was fine, RN to RN report needed to be called before he goes as well and that number is on the front of the chart. She was going to change his PICC line dressing change and then call in the report. I called and talked with Hemantsharon' brother Keith, he states he will get on the road to come and pick him up to take him to [facility]. Orders were faxed over to [facility] before he dismissed. I saw Dr. Hoang in the hallway and he confirmed that to report had been done and issues with the urology questions had been taken care of. Before I left the floor I did see brother Keith up waiting to grain picker Rebecca and I also stopped in the room and confirmed with Rebecca that he was still happy with going to [facility] and he states he is. Denied any other questions, needs or concerns. CM to continue to follow and assist. Plan [facility] today via private auto.
[2016-09-27] MEDS ORDERED: MAG-OX-400(241400 MG PO (09:52)
[2016-09-27] MEDS ORDERED: DELTASONE5 MG PO (09:53)
[2016-09-27] MEDS ORDERED: FLOMAX0.4 MG PO (09:53)
[2016-09-27] MEDS ORDERED: LOPRESSOR25 MG PO (09:54)
[2016-09-27] MEDS ORDERED: OMEPRAZOLE40 MG PO (09:54)
[2016-09-27] MEDS ORDERED: LANTUS SOL100 UNIT/1 SUB-Q (09:55)
[2016-09-27] MEDS ORDERED: TYLENOL EXTRA500 MG PO (09:57)
[2016-09-27] MEDS ORDERED: HUMALOG100 UNIT/3 SUB-Q (09:57)
[2016-09-27] MEDS ORDERED: Albuterol Sulfate INH (09:59)
[2016-09-27] MEDS ORDERED: MILK OF MA400 MG/5 M PO (10:01)
== END 2016-07-28 11:35 | disposition swing bed (61) | DRG 853 ==
LOC: GPCU 16:28 → GICU 16:28 → GPCU 07-17 16:56
PROVIDERS: Anesthesiology; Anesthesiology Critical Care Medicine; Family Medicine; Internal Medicine; Internal Medicine Critical Care Medicine; Internal Medicine Nephrology; Nurse Practitioner Acute Care; ADMIT Internal Medicine
PROC: B246ZZZ Ultrasonography of Right and Left Heart (ICD-10-PCS; principal; 2016-06-29)
PROC: 05HN33Z Insertion of Infusion Device into Left Internal Jugular Vein, Percutaneous Approach (ICD-10-PCS; principal; 2016-06-29)
PROC: B246ZZZ Ultrasonography of Right and Left Heart (ICD-10-PCS; 2016-07-01)
PROC: B2111ZZ Fluoroscopy of Multiple Coronary Arteries using Low Osmolar Contrast (ICD-10-PCS; 2016-07-01)
PROC: 4A023N7 Measurement of Cardiac Sampling and Pressure, Left Heart, Percutaneous Approach (ICD-10-PCS; 2016-07-01)
PROC: 5A02210 Assistance with Cardiac Output using Balloon Pump, Continuous (ICD-10-PCS; 2016-07-01)
PROC: B246ZZZ Ultrasonography of Right and Left Heart (ICD-10-PCS; 2016-07-10)
DX: A41.01 Sepsis due to Methicillin susceptible Staphylococcus aureus (principal); E13.11 Other specified diabetes mellitus with ketoacidosis with coma; J96.00 Acute respiratory failure, unspecified whether with hypoxia or hypercapnia; I21.4 Non-ST elevation (NSTEMI) myocardial infarction; I26.01 Septic pulmonary embolism with acute cor pulmonale; G93.41 Metabolic encephalopathy; R65.21 Severe sepsis with septic shock; J69.0 Pneumonitis due to inhalation of food and vomit; R57.0 Cardiogenic shock; K92.0 Hematemesis; K85.90 Acute pancreatitis without necrosis or infection, unspecified; N17.9 Acute kidney failure, unspecified; E22.9 Hyperfunction of pituitary gland, unspecified; E87.0 Hyperosmolality and hypernatremia; K92.2 Gastrointestinal hemorrhage, unspecified; M00.9 Pyogenic arthritis, unspecified; N10 Acute pyelonephritis; N39.0 Urinary tract infection, site not specified; I38 Endocarditis, valve unspecified; E86.1 Hypovolemia; T68.XXXA Hypothermia, initial encounter; I10 Essential (primary) hypertension; B96.1 Klebsiella pneumoniae [K. pneumoniae] as the cause of diseases classified elsewhere; R00.0 Tachycardia, unspecified; I25.10 Atherosclerotic heart disease of native coronary artery without angina pectoris; B95.61 Methicillin susceptible Staphylococcus aureus infection as the cause of diseases classified elsewhere
CPT/HCPCS: A9539; A9540; A9577; C1751; C9113; J0610; J0690; J0692; J0696; J0834; J1040; J1120; J1644; J1720; J1885; J1940; J2020; J2185; J2354; J2405; J2543; J2997; J3370; J3475; J3480; J7030; J7040; J7050; J7060; J7512; P9045; P9047; Q9967

== ENCOUNTER 2016-09-29 10:49 | Day surgery (SDC) | payer MEDICARE, OTHER ==
[~2016-09-29] VITALS: Ht 182.9 cm; Wt 110.8 kg
--- NOTE | ~2016-09-29 | OR ---
PATIENT'S NAME: ESTELLA [facility] AGE: 71 Y [address] ROOM: [place] [address] [place] [facility] [place] DATE: 09/29/2016 OR/Procedure Report DISCHARGE DATE: FAMILY PHYSICIAN: KHLOE BLOOM MD ATTENDING PHYSICIAN: Cari Blanc SURGEON: Cari Blanc MD SALES PROGRAM MANAGER: DATE OF PROCEDURE: 09/29/2016 PREOPERATIVE DIAGNOSES: 1. Benign prostatic hypertrophy with lower urinary tract symptoms. 2. Urinary retention. POSTOPERATIVE DIAGNOSES: 1. Benign prostatic hypertrophy with lower urinary tract symptoms. 2. Urinary retention. PROCEDURE PERFORMED: Cystoscopy, TURP. ANESTHESIA: Spinal. COMPLICATIONS: None. ESTIMATED BLOOD LOSS: 50 mL. INDICATION FOR PROCEDURE: The patient is a 71-year-old male with prostatic enlargement with lower urinary tract symptoms, retention, and history of cystitis. DETAILS OF PROCEDURE: After informed consent was obtained, the patient was taken to the operating room. A spinal anesthetic was applied. He was placed in the dorsal lithotomy position. The groin area was prepped and draped in normal sterile fashion. The resectoscope sheath was introduced into the urethra and bladder under direct visualization. Next, the resectoscope was introduced. The patient was noted to have very large median lobe. This was resected at the bladder neck to the level of the verumontanum and the floor of the prostate. I resected lateral tissue and then finally anterior tissue that was hanging down. The bladder was empty of chips. I continued further resection laterally and anteriorly. We continued this down to crossing fibers. Remaining chips were then irrigated out. Bleeding areas were extensively fulgurated for hemostasis. At the end of the procedure, the patient had excellent voiding channel. A 24-[place]ian 3-way Florez catheter was placed on traction. The patient tolerated this procedure well and was transferred to recovery room in good condition. PATIENT'S NAME: ESTELLA [facility] AGE: 71 Y [address] ROOM: [place] [address] LOCATION: [facility] [place]MIT DATE: 09/29/2016 OR/Procedure Report DISCHARGE DATE: FAMILY PHYSICIAN: KHLOE BLOOM MD ATTENDING PHYSICIAN: Cari Blanc MD SUZI MICHELLE/zuleika /[id number] CC: Khloe Bloom MD d: 09/29/162009 t: 10/03/16901, OPERATIVE SUMMARY
[~2016-09-29 10:49] MED LIST: AMOXICILLIN500 M1 PO; ASPIRIN LO-DOSE81 MG PO; Albuterol Sulfate INH; DELTASONE5 MG PO; FLOMAX0.4 MG PO; GLUCOPHAGE1000 MG PO; GLUCOTROL XL10 MG PO; GLYXAMBI 25 MG1 EACH PO; HUMALOG100 UNIT/3 SUB-Q; LANTUS SOL100 UNIT/1 SUB-Q; LOPRESSOR25 MG PO; MAG-OX-400(241400 MG PO; MILK OF MA400 MG/5 M PO; OMEPRAZOLE40 MG PO; TRADJENTA5 MG PO; TYLENOL EXTRA500 MG PO; VASOTEC5 MG PO
[2016-09-29 11:33] LABS: BASOPHIL # 0.1 K/uL (0.0-0.2); BASOPHIL % 0.5 %; EOSINOPHIL # 0.1 K/uL (0.0-0.5); EOSINOPHIL % 0.7 %; HEMATOCRIT 42.4 % (37.0-53.0); HEMOGLOBIN 13.9 g/dL (11.0-16.0); IMMATURE GRANULOCYTE # 0.1 K/uL (0.0-0.3); LYMPHOCYTE # 1.4 K/uL (0.8-4.0); LYMPHOCYTE % 13.8 %; MCH 31.7 pg (27.0-34.0); MCHC 32.8 gm/dL (32.0-36.5); MCV 96.8 fl (83.0-98.0); MONOCYTE # 0.9 K/uL (0.0-1.0); MONOCYTE % 9.5 %; MPV 9.7 fl (9.4-12.4); NEUTROPHIL # (ANC) 7.4 K/uL (1.4-9.0); NEUTROPHIL % 74.5 %; NRBC % 0 /100WBC (0-0.00); RBC 4.38 M/uL (3.50-5.50); RDW-CV 14.6 % (11.9-14.6); WBC 9.9 K/uL (4.0-11.0)
[2016-09-29 11:36] LABS: PLATELET COUNT 287 K/uL (150-450)
[2016-09-29 11:50] LABS: ALBUMIN 3.4 gm/dL (3.5-5.0); ANION GAP 11.3 (10.0-19.0); CALCIUM 9.3 mg/dL (8.5-10.5); CREATININE 1.1 mg/dL (0.6-1.3); POTASSIUM 4.3 mMol/L (3.7-5.1); TOTAL BILIRUBIN 0.7 mg/dL (0.0-1.5); TOTAL PROTEIN 7.3 g/dL (6.0-8.4)
[2016-09-29 12:07] LABS: ALBUMIN 3.3 gm/dL (3.5-5.0); TOTAL BILIRUBIN 0.7 mg/dL (0.0-1.5); TOTAL PROTEIN 7.2 g/dL (6.0-8.4)
--- NOTE | 2016-09-30 06:41 | NUR ---
Significant Event: PT REMAINS ON BEDREST. FC IN PLACE AND PATENT. ON VERY SLOW DRIP, URINE VERY LIGHT PINK COLOR. NO PRN'S ADMINISNTERED. ADA DIET, MOD SS. COOPERATIVE WITH CARES. Follow up:
[2016-09-30] MEDS ORDERED: LEVAQUIN 250 M250 MG PO (11:46)
[2016-09-30] MEDS ORDERED: TYLENOL WITH C1 EACH PO (11:49)
--- NOTE | 2016-09-30 14:16 | NUR ---
Discharge summary: Pt is alert and oriented. VSS. On room air. IV dc'd with no complications. Copy of Hospital discharge instructions given to pt. Instructed dghtr and pt to call for follow up appts. Instructed them on leg bag and catheter cares. Verbalized understanding. Gave copies of Education to pt and dghtr. Education given was Caring for indwelling urinary cath, preventing DVT, caring for leg bag, Emptying and cleaning cath bag, understanding carbs, understanding type 2 diabetes, healthy meals for diabetes, meal planning, understanding carbs, fats and proteins, eating out with diabetes, learning about serving and portion size. PT and dghtr voiced understanding. [facility] to [facility] [place] [facility] Co[facility] with cares.
== END 2016-09-30 13:50 | disposition disaster alternative care site (69) ==
LOC: GMSU 10:49 → GSDC 10:49 → GPOC 11:00 → GSDC 09-30 13:50
PROVIDERS: Urology
PROC: 0VB08ZZ Excision of Prostate, Via Natural or Artificial Opening Endoscopic (ICD-10-PCS; principal; 2016-09-29)
DX: N40.1 Benign prostatic hyperplasia with lower urinary tract symptoms (principal); R33.8 Other retention of urine; K21.9 Gastro-esophageal reflux disease without esophagitis; I10 Essential (primary) hypertension; E11.8 Type 2 diabetes mellitus with unspecified complications; E78.00 Pure hypercholesterolemia, unspecified; K59.00 Constipation, unspecified; J44.9 Chronic obstructive pulmonary disease, unspecified; J18.9 Pneumonia, unspecified organism; Z98.890 Other specified postprocedural states; Z79.899 Other long term (current) drug therapy; Z79.4 Long term (current) use of insulin; Z79.52 Long term (current) use of systemic steroids
CPT/HCPCS: J1956; J2001; J2930; J7030; J7512